=== PATIENT | female | born 1960 | race Caucasian/White ===

== ENCOUNTER 2017-09-26 17:01 | Inpatient (IN) | payer MEDICAID, SELFPAY ==
[2017-09-26] VITALS (18 sets, daily range): BP systolic 100–190; BP diastolic 57–175; PULSE 66–100; RESP 14–41; TEMP 34.6–37.1; O2SAT 97–100; BMI 18.1; BMI 17.4; BMI 17.5
--- NOTE | 2017-09-26 17:06 | NURSING ---
NO OLD EKGS
--- NOTE | 2017-09-26 17:10 | RAD_ITS ---
STUDY: X-RAY CHEST REASON FOR EXAM: Female, 57 years old. Cardiac arrest TECHNIQUE: AP portable COMPARISON: None. FINDINGS: Lungs are hyperinflated but clear.. There is no demonstrated pleural abnormality. Endotracheal tube is present terminating approximately 4 cm proximal to bryce Normal size heart. Normal mediastinum and luly. Normal visualized pulmonary arteries. Normal visualized aortic arch and descending thoracic aorta. Normal visualized thoracic spine. Normal visualized ribs, clavicles, and shoulders. Nasal gastric tube is present with tip in the gastric fundus There is no demonstrated abnormality of the visualized soft tissue structures of the upper abdomen. RAD/Chest 1 View (Portable) IMPRESSION: Mild hyperinflation. No acute disease status post intubation. Electronically Signed: Fredy Holland MD at 18:30 EST , Service support ,
--- NOTE | 2017-09-26 17:10 | EKG12_ITS ---
Test Reason : Blood Pressure : / mmHG Vent. Rate : 052 BPM Atrial Rate : 052 BPM P-R Int : 124 ms QRS Dur : 088 ms QT Int : 488 ms P-R-T Axes : 060 053 -66 degrees QTc Int : 453 ms Sinus bradycardia Otherwise normal ECG No previous ECGs available Confirmed by JODY COLINDRES ([id number]), editor trade journal WONG DAVIDSON ([id number] on 10/02/2017 1:57:28 PM Referred By: Jody Colindres Confirmed By:JODY COLINDRES
--- NOTE | 2017-09-26 17:13 | ED.RN ---
Addendum entered by Davide Dupont 09/26/17 17:39: 1731-PROPOFOL RATE INCREASED FROM 5MCG TO 10MCG/KG Original Note: 1700 - 7.0 E-TUBE SECURED, 22 AT LIPS. PLACEMENT [id number] WITH BILAT BREATH SOUNDS. 1708-PROPOFOL GTT STARTED 1714 - PROPOFOL 40MG IVP. 1715 - LAB DRAW, RAINBOW
--- NOTE | 2017-09-26 17:23 | RAD_ITS ---
STUDY: X-RAY - ABDOMEN/PELVIS REASON FOR EXAM: Female, 57 years old. G-tube placement TECHNIQUE: COMPARISON: None. FINDINGS: Normal visualized lung bases. There is an unremarkable bowel gas pattern. There is no demonstrated free abdominal air. OG tube placement is noted with tip in the mid gastric fundus. The visualized liver, spleen and kidneys are grossly normal in size and morphology. There is subdiaphragmatic lucency on the left likely artifactual. Normal visualized osseous structures. RAD/Abdomen Single View IMPRESSION: OG tube placement in the mid gastric fundus. Subdiaphragmatic lucency on the left most likely artifactual however if concern for pneumoperitoneum upright film recommended Electronically Signed: Fredy Holland MD at 19:13 EST , Service support ,
[2017-09-26 17:29] LABS: Absolute Neutrophil Count 6.5 X10^3/uL (2.0-7.7); Basophil# 0.01 X10^3/uL; Basophil% 0.1 % (0-1); Eosinophil# 0.11 X10^3/uL; Eosinophils% 0.9 % (0-5); Hematocrit 44.6 % (37-47); Hemoglobin 14.8 g/dl (12.0-15.0); Lymphocyte % 36.5 % (19-41); Mean Corp Hgb Conc 33.2 g/gl (32-36); Mean Corpuscular Hgb 32.2 pg (27.0-32.0); Mean Corpuscular Volume 97.2 fL (81-99); Mean Platelet Vol. 8.6 fl (6.2-12.0); Monocyte# 0.77 X10^3/uL; Monocyte% 6.5 % (0-10); Neutrophil # 6.52 X10^3/uL (2.7-7.7); Neutrophil % 55.5 % (47-70); Platelet Count 269 K/mm3 (150-450); RBC Distribution Width CV 14.5 % (11.6-14.6); RBC Distribution Width SD 51.7 fl (35.1-43.9); Red Blood Count 4.59 M/mm3 (4.2-5.4); White Blood Count 11.8 K/mm3 (4.4-11.0)
[2017-09-26] MEDS: Heparin Injection 5,000 UNITS/ML Syringe 4000 UNITS SC (17:29)
[2017-09-26] MEDS: Aspirin 81 MG TAB.CHEW 324 MG PO (17:29)
[2017-09-26] MEDS: TICAGRELOR 90 MG TABLET 180 MG PO (17:29)
[2017-09-26 17:32] LABS: POSITIVE COUNT NO; POSITIVE DIFFERENTIAL NO; POSITIVE MORPHOLOGY NO
[2017-09-26 17:53] LABS: Anion Gap 15 (5-15); BUN 9 mg/dL (7-18); BUN/Creat Ratio 9.4 RATIO (10-20); Calcium,Total 8.4 mg/dL (8.5-10.1); Chloride 104 mmol/L (98-107); Creatinine, Serum 0.96 mg/dL (0.55-1.02); EST Glomerular Filtration Rate 64 mL/min (>60); Est Glom Filt Rate - Afr Amer 77 mL/min (>60); Estimated Creatinine Clearance 47.36 ml/min; Glucose 189 mg/dL (74-106); Potassium 3.5 mmol/L (3.5-5.1); Sodium Level 139 mmol/L (136-145)
[2017-09-26 17:54] LABS: Pregnancy, Serum, hCG Quali. NEGATIVE Negative (0-9 Nonpreg)
--- NOTE | 2017-09-26 18:02 | ED.VISSUMM ---
- ER Visit Summary Date of Service: 09/26/17 Chief Complaint: Cardiac arrest History of Present Illness: The patient is a 57 F presenting to the emergency department for evaluation after a witnessed out of hospital cardiac arrest. Patient started complaining to her that she was having left-sided arm pain and neck pain. He witnessed her having a cardiac arrest, and started bystander CPR and contacted EMS. Upon EMS arrival, initial rhythm on the patient was found to be ventricular fibrillation. She was shocked one time with 200 J of electricity, had a brief moment of asystole, and then regained both a pulse and normal rhythm. She was intubated and brought immediately to the emergency department. Additional history unable to be obtained secondary to the patient's level of illness. Physical Examination: Patient is well-nourished well-developed intubated. ET tube is 24 at the lips with bilateral breath sounds. GCS is 5T. Head normocephalic atraumatic. Pinpoint pupils minimally reactive. Neck supple. Abdomen soft. No peripheral edema. Skin normal color. Test Results: EKG demonstrates evidence of lateral ST depressions, no evidence of ST elevation. Sinus rate of 82. Chest x-ray shows good placement of the ET tube and NG tube. CBC shows leukocytosis of 11, chemistry unremarkable, troponin 2.45. Emergency Department Course and Treatment: Patient presented secondary to an out of hospital arrest. On initial presentation immediately EKG was performed and does not show evidence of ST elevation. Regardless, the patient was a V. fib arrest and I believe that she should be treated by emergent catheterization. I discussed this with Dr. Colindres, who agreed to mobilize the catheterization lab. Patient was placed on propofol and hypothermia protocol was initiated. Patient was given aspirin, Brilinta, heparin, and was transferred emergently to the catheterization lab. Disposition: Trimmer Climber Impression: 1. V. fib arrest Critical care time 40 minutes This note was generated with [employer] dictation software. It may contain incorrect words, spelling, and punctuation that were not noted in review of the chart prior to signing ED Disposition - Plan for ED Patient: Chief Complaint: CPR
--- NOTE | 2017-09-26 18:39 | ECHOCS_ITS ---
Reason For Study: CAD Procedure This was a 2D Doppler, Color Flow transthoracic echocardiogram. Exam performed portable in ICU/CCU. Left Ventricle Normal size and thickness. The estimated ejection fraction is 65 %. Normal diastology for age. No regional wall motion abnormalities noted. Right Ventricle Normal size and thickness. Normal systolic function. Atria Normal left atrium. Normal right atrium. Normal atrial septum. Mitral Valve The mitral valve is structurally normal. No prolapse or stenosis seen. Tricuspid Valve Normal tricuspid valve. Unable to estimate RV systolic pressure/pulmonary artery pressure due to technically difficult study. Aortic Valve Normal aortic valve. Trisinus/trileaflet aortic valve. Pulmonic Valve Normal pulmonic valve. Great Vessels Normal aortic root. Normal arch. The inferior vena cava is dilated. No collapse of the inferior vena cava. Pericardium/Pleural No pericardial effusion. MMode/2D Measurements & Calculations LVIDd: 3.1 cm IVSd: 0.87 cm Ao root diam: 2.5 cm LVIDs: 2.4 cm LVPWd: 0.72 cm LA dimension: 3.6 cm RVDd: 2.2 cm FS: 22.9 % LAV(MOD-bp): 22.7 ml LA A4 area: 9.8 cm2 RA A4 area: 8.6 cm2 LAV(MOD-bp) Indexed: 15.7 ml/m2 LAV(MOD-sp2): 20.2 ml LAV(MOD-sp4): 22.3 ml Doppler Measurements & Calculations MV E max neeraj: 66.4 cm/sec Lat Peak E' Neeraj: 9.2 cm/sec Med Peak E' Neeraj: 7.9 cm/sec MV A max neeraj: 71.0 cm/sec E/E' lat: 7.2 E/E' med: 8.4 MV E/A: 0.94 Ao V2 max: 154.0 cm/sec LV V1 max: 105.7 cm/sec PA V2 max: 94.4 cm/sec Ao max P.5 mmHg LV V1 max P.5 mmHg Interpretation Summary The estimated ejection fraction is 65 %. Normal diastology for age. Unable to estimate RV systolic pressure/pulmonary artery pressure due to technically difficult study. There is no comparison study available. Ordering Physician: Carlos Colindres Referring Physician: Carlos Colindres Performed By: Razia Lawton RDCS
[2017-09-26 18:45] LABS: Base Excess -10 mmol/L (-2 to +2); Bicarbonate 18.2 mmol/L (22-26); Blood Gas Specimen Type ALINE; PO2 229 mmHG (75-100); SO2 100 % (95-99); Total Carbon Dioxide 20 mmol/L; pCO2 51.5 mmHg (35-45); pH 7.16 (7.35-7.45)
[2017-09-26 18:45] LABS: ACT Activated Clotting Time 202 sec (74-137)
[2017-09-26 18:45] LABS: ACT Activated Clotting Time 235 sec (74-137)
--- NOTE | 2017-09-26 18:54 | CL.I_ITS ---
Patient Name: INDIA GARCIA Study Date: 09/26/2017 Performing: Carlos Colindres MD Ht: 63 inches 160 cm : 1960 Wt: 101.5 lbs 46 kg Age: 57 Gender: female BSA: 1.45 PROCEDURE(S) PERFORMED [id number]/LV [id number] W OR WO PTCA, SINGLE CORONARY ARTERY CLINICAL PROFILE AND CO-MORBIDITIES INDICATIONS: Unstable Angina, Sudden cardiac , Sudden cardiac arrest Stress/Imaging Stress/Image Study Performed: No Angina Classification Anginal Classification w/in 2 Weeks: No symptoms CAD Presentations: Unstable angina. Non-STEMI. 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 Successful PTCA/TETE of the proximal RCA with a 3.0 x 20 Promus Synergy stent; 75%-->0%, post dilated with a 3.0 x 12 NC Balloon; no dissection. RECOMMENDATIONS Referred for immediate PCI ASA Indefinitely Highly recommend quitting all tobacco products Follow up with primary juvenile officer Risk factor modification ASA Indefinitley Plavix for at least 12 months Routine post interventional care Refer for Outpatient Cardiac Rehab Manual sheath removal per protocol Follow up with Dr. Colindres Stress test in 4 weeks to evaluate LCX and DIAG territory. Transduce art line until am; pulmonary consult. DESCRIPTION OF PROCEDURE The patient arrived to the procedure lab. The risks and benefits of the procedure as well as a full d escription of our services here and lack of surgical backup were fully explained to the patient and/o r their significant other prior to the catheterization. The Timeout was completed, verifying the daniele ect patient and procedure. The patient's procedural site was prepped and draped in the usual fashion. Local anesthetic was given subcutaneously to right groin region with Lidocaine 2%. Using a modified Seldinger technique, arterial access was obtained via the right femoral artery, a 6Fr sheath was inse rted.. Left Coronary Artery selective angiography was performed in multiple views using a 4 Fr. JL4 catheter. Right Coronary Artery selective angiography was then performed in multiple views using a 4 Fr. 3DRC catheter. Left Ventriculography was performed in HARDING projection using a 4 Fr. Pigtail cathet er. LV to AO pullback pressures were then recordedThe images were reviewed and options discussed. A d ecision was then made to proceed with an Intervention, IVUS or other adjunct procedure. HSI Guide catheter was inserted and engaged into the RCA. bmw Guide wire was advanced to the RCA. Ang iogram performed pre balloon dilatation. emerge 2.0x12 Balloon catheter was inserted. PTCA balloon in flated at 12 atms for 12 secs PTCA balloon inflated at 12 atms for 9 secs PTCA balloon inflated at 12 atms for 9 secs Angiogram performed post balloon dilatation. synergy 2.5x38 Drug Eluting stent was i nserted Angiogram performed post stent deployment. synergy 3.0x20 Drug Eluting stent was inserted kayleigh rge nc 3.0x12 Balloon catheter was inserted. PTCA balloon inflated at 9 atms for 10 secs PTCA balloon inflated at 10 atms for 9 secs PTCA balloon inflated at 12 atms for 8 secs PTCA balloon inflated at 12 atms for 7 secs PTCA balloon inflated at 12 atms for 5 secs Angiogram performed post balloon dilat ation.. . . CORONARY ANGIOGRAPHY DOMINANCE: Right Dominant LEFT HEART ASSESSMENT Left Ventricular Ejection Fraction: by LV Gram 60 % Inferior Basal Hypokinesis - Mild LEFT MAIN: Angiographically normal LEFT ANTERIOR DECENDING ARTERY: Mild luminal irregularities less than 30% DIAGONAL 1: Proximal - 50 % Stenosis CIRCUMFLEX ARTERY: MID CIRC: 50 % Stenosis RIGHT CORONARY ARTERY: PROX RCA: 75 % Stenosis MID RCA: 85 % Stenosis DISTAL RCA: Mild luminal irregularities less than 30% RT PDA: Proximal - No significant disease noted INTERVENTION INFORMATION LESION SITE: RCA (Mid) Lesion Complexity: High/C, lesion at bifurcation: Yes, thrombus present: No, culprit lesion: Yes Pre Stenosis: 85 % Pre intervention JOLENE flow: 3 PROCEDURE: Drug Eluting Stent with pre and post dilatation Post Stenosis: 0 % Post intervention JOLENE flow: 3 Lesion Devices: [employer] Sci EMERGE MR 2.00x12 BALLOON Zacarias [employer] MR TETE 2.50x38 Z[employer] Sci NC EMERGE MR 3.00x12 BALLOON LESION SITE: RCA (Proximal) Lesion Complexity: High/C, lesion at bifurcation: No, thrombus present: No, lesion length: 20 mm, cul prit lesion: No Pre Stenosis: 75 % Pre intervention JOLENE flow: 3 PROCEDURE: Drug Eluting Stent with pre and post dilatation Post Stenosis: 0 % Post intervention JOLENE flow: 3 Lesion Devices: [employer] EMERGE MR 2.00x12 BALLOON [employer] Sci Synergy MR TETE 3.00x20 [employer] NC EMERGE MR 3.00x12 BALLOON COMPLICATIONS No Complications PROCEDURE MEDICATIONS Fentanyl 25 mcg IV Oxygen: 50 % FiO2 via ventilator. See Resp Record for Settings Nitro 200 mcg IC 09/26/2017 18:06:08 Nitro 200 mcg IC 09/26/2017 18:06:08 IV Bolus: .9 NaCl 600 ml total 09/26/2017 18:00:34 SUMMARY OF HEMODYNAMIC DATA Time AIR REST ECG 17:53:17 AO 90/61 (75) SA 17:58:41 LV 145/-4, 23 18:27:13 LV 132/-7, 25 18:27:19 LVp 132/-6, 24 18:27:24 AOp 133/72 (98) 18:27:29 Signed By Carlos Colindres MD On 09/26/2017 18:54:11 Carlos Colindres MD
--- NOTE | 2017-09-26 18:59 | EKG12_ITS ---
Test Reason : FULL ARREST Blood Pressure : / mmHG Vent. Rate : 082 BPM Atrial Rate : 082 BPM P-R Int : 134 ms QRS Dur : 084 ms QT Int : 378 ms P-R-T Axes : 084 044 090 degrees QTc Int : 441 ms Normal sinus rhythm Nonspecific ST and T wave abnormality Abnormal ECG Confirmed by BERRY MASCORRO, DAWIT ([id number]), development editor WONG DAVIDSON ([id number]) on 09/28/2017 1:19:54 PM Referred By: Carlos Colindres Confirmed By:DAWIT SMART MD
[2017-09-26 19:26] LABS: Hematocrit 38.1 % (37-47); Hemoglobin 12.9 g/dl (12.0-15.0); Mean Corp Hgb Conc 33.9 g/gl (32-36); Mean Corpuscular Hgb 32.2 pg (27.0-32.0); Mean Platelet Vol. 8.6 fl (6.2-12.0); Platelet Count 257 K/mm3 (150-450); RBC Distribution Width CV 14.3 % (11.6-14.6); Red Blood Count 4.01 M/mm3 (4.2-5.4); White Blood Count 15.5 K/mm3 (4.4-11.0)
[2017-09-26 19:31] LABS: Allen Test POS; Base Excess -5 mmol/L (-2 to +2); Bicarbonate 21.9 mmol/L (22-26); Blood Gas Specimen Type ALINE; FI02 40; Mode A-C; O2 Delivery Device Vent; PEEP 5; PO2 219 mmHG (75-100); RR 14; SO2 100 % (95-99); Time Given 1925; Total Carbon Dioxide 23 mmol/L; Vt 400; pH 7.25 (7.35-7.45)
[2017-09-26 19:34] LABS: Scan Indicated on CBC? Y/N NO
[2017-09-26] MEDS: 0.9% Normal Saline 1,000 ML 150 ML IV (19:37)
[2017-09-26] MEDS: 0.9% NaCl Peripheral Flush Adult/Peds IV (19:37)
[2017-09-26 19:42] LABS: CPK Total, Creatine Kinase 475 U/L (26-192)
--- NOTE | 2017-09-26 20:00 | NURSING ---
Pt , Ameya, daughter, Sherie, and male visitor at bedside. tearful and expressing frustration regarding visitation. This RN and Mgiuel Copeland RN explaining to Ameya and Sherie visiting hours 9a-9p and rounds at 9a. Ameya in aggressive tone stating he will have pt transferred to another hospital, much emotional support provided. It is explained to Ameya that he may stay in waiting room and will not be kept from seeing his but it is not recommended he sleep in pt room. Ameya is given nurses station phone number and expresses he may be back later seeming to remain agitated.
[2017-09-26] MEDS: 0.9% NaCl IVPB Med Flush (250 mL) 15 ML IV (20:13)
--- NOTE | 2017-09-26 21:00 | NURSING ---
Pt's , Ameya, calling in to nurses station and speaking to Miguel Hudson. Ameya expressing much frustration that EMS had given pt Narcan, he demands that tox screen be obtained on pt. also discussing frustration regarding Authorization Specialist, stating they were trying to search my house. Ameya is transferred to discuss concerns with nurse farm equipment maintenance supervisor David Clements RN.
--- NOTE | 2017-09-26 21:10 | NURSING ---
Pharmacy is called, this RN spoke with Pharmacist Luis Eduardo requesting that all PO medications be changed to OG route per Dr. Penn.
--- NOTE | 2017-09-26 22:05 | PCM.HP.STD ---
Problem List (1) Cardiac arrest Status: Acute History of Present Illness Date of Admission: 09/26/17 Chief Complaint: Cardiac arrest The patient is a 57 year old F was seen in the emergency room at [facility] today after being brought in by squad when she suffered a cardiac arrest at home in the presence of her . Patient's stated that the patient was complaining of left-sided arm pain and neck pain, shortly after these complaints the patient stated that she needed to lie down and then became unresponsive abruptly, patient's stated that she was breathing and he called the ambulance but then he noted that she stopped breathing and he started CPR. She was evaluated by EMS upon arrival and her initial rhythm was found to be ventricular fibrillation and she was shocked one time with 200 J, according to the EMS, she had a brief period of asystole but then went into normal sinus rhythm. Patient was intubated and brought to the emergency room department. Review of systems was unable to be obtained from the patient due to her intubated state, EKG was performed in the emergency room which showed no evidence of ST elevation, cardiology was contacted and felt the patient warranted an emergent heart catheterization. Patient underwent emergent heart catheterization with angioplasty and insertion of 2 drug-eluting stents in the right coronary artery. Patient was noted to have mild circumflex, diagonal, and LAD disease which was nonobstructive. Labs obtained in the emergency room revealed a troponin of 2.45, WBC was 11,000, chemistry was unremarkable Patient was admitted to the ICU under the hospitalist service for V. fib arrest and non-STEMI, I evaluated her after admission to the ICU, patient was sedated and on the ventilator at the time, again review of systems was unobtainable. Patient will be seen by critical care medicine tomorrow and cardiology. Past Medical History Allergies Penicillins Allergy (Verified 09/26/17 17:22) Unknown Home Medications: Ambulatory Orders Medication Instructions Recorded NK [NK] 09/26/17 Surgical History: noncontributory Psychiatric History: No pertinent psych hx TOY DESIGNER History: No pertinent TOY DESIGNER history Lives: Spouse/ Significant Other Smoking Status: Current every day smoker Tobacco Use: Cigarettes - *Family History Maternal History Items: Unknown Paternal History Items: Unknown Review of Systems Comment: Systems was unobtainable due to the patient's medical status-she is sedated on the ventilator at this time VTE Information - Inpt Only VTE Present on Admission: No VTE Mechan Device Prophylaxis: SCD's VTE Pharm Prophylaxis ordered?: No Reason prophylaxis not ordered:: Treatment Not Indicated - on SCD's Patient Problems: Active and Suspected Problems Cardiac arrest (Acute) - Physical Exam General: No apparent distress, Well developed, - - She is sedated and on the ventilator HEENT: Atraumatic, PERRLA, Normocephalic Oral: Moist Mucosa Neck: Supple, No JVD, Negative Carotid Bruits, No Nuchal Rigidity, Trachea Midline, Thyroid Normal Size and Texture Lungs: Clear to auscultation, Normal air movement, No rhonchi, No wheeze, No rales Cardiovascular: Regular rate, Regular Rhythm, Normal S1, Normal S2, No murmurs, No Ectopic Activity, PMI Normal, No rub noted, No Gallop Abdomen: Bowel Sounds Present, Soft, Non Tender, Non-Distended, No hernias noted Extremities: No clubbing, No cyanosis, No edema, Capillary Refill Less than 3 Seconds Skin: No rashes, No breakdown Musculoskeletal: No Tenderness to Palpation of Joints or Extremities, Cachexia Neurological: - - She is sedated and on the ventilator Psych/Mental Status: - - She is sedated and on the ventilator Vital Signs Temp Pulse Resp BP Pulse Ox 97.4 F L 71 17 102/58 L 100 09/26/17 20:30 09/26/17 20:30 09/26/17 20:30 09/26/17 20:30 09/26/17 20:30 Oxygen Delivery Method Mechanical Ventilator Weight: 44.7 kg Body Mass Index (BMI) 17.4 Laboratory Tests Past 24 Hrs 09/26/17 09/26/17 09/26/17 18:00 18:07 18:27 WBC RBC Hgb Hct MCV MCH MCHC RDW RDW Differential Plt Count MPV Activated Clotting Time 235 H 202 H Specimen Type RIYA pH 7.16 L* Bicarbonate Actual 18.2 L POC Total CO2 20 Base Excess -10 L O2 Saturation 100 H O2 % ABG pCO2 51.5 H ABG pO2 229 H Romero Test Respiration Rate O2 Delivery Device Minute Volume Vent Mode Tidal Volume POC PEEP Blood Gas Notified Whom Blood Gas Notified Time Total Creatine Kinase Troponin I MRSA (PCR) 09/26/17 09/26/17 09/26/17 19:05 19:05 19:05 WBC 15.5 H RBC 4.01 L Hgb 12.9 Hct 38.1 MCV 95.0 MCH 32.2 H MCHC 33.9 RDW 14.3 RDW Differential 50.0 H Plt Count 257 MPV 8.6 Activated Clotting Time Specimen Type pH Bicarbonate Actual POC Total CO2 Base Excess O2 Saturation O2 % ABG pCO2 ABG pO2 Romero Test Respiration Rate O2 Delivery Device Minute Volume Vent Mode Tidal Volume POC PEEP Blood Gas Notified Whom Blood Gas Notified Time Total Creatine Kinase 475 H Troponin I MRSA (PCR) Pending 09/26/17 09/26/17 19:26 21:15 WBC RBC Hgb Hct MCV MCH MCHC RDW RDW Differential Plt Count MPV Activated Clotting Time Specimen Type RIYA pH 7.25 L Bicarbonate Actual 21.9 L POC Total CO2 23 Base Excess -5 L O2 Saturation 100 H O2 % 40 ABG pCO2 50.0 H ABG pO2 219 H Romero Test POS Respiration Rate 14 O2 Delivery Device Vent Minute Volume 14.00 Vent Mode A-C Tidal Volume 400 POC PEEP 5 Blood Gas Notified Whom [facility] MD Blood Gas Notified Time 1925 Total Creatine Kinase Troponin I Pending MRSA (PCR) Assessment/Plan Active and Suspected Problems Cardiac arrest (Acute) #1 V. fib arrest-again patient was admitted to ICU, she will be monitored closely and additional orders were placed by cardiology, critical care will participate in her care #2 [id number] per cardiology #3 hypoxic respiratory arrest secondary to V. fib-critical care will participate in her care #4 nonobstructive coronary disease in addition to obstructive coronary artery disease and right coronary artery-aspirin, Brilinta, Lipitor, beta-alan, ANA inhibitor Code Visit Inpatient E&M: 67315 Init Hosp L3
--- NOTE | 2017-09-26 22:15 | HP.PCM_ITS ---
Problem List (1) Cardiac arrest Status: Acute History of Present Illness Date of Admission: 09/26/17 Chief Complaint: Cardiac arrest The patient is a 57 year old F was seen in the emergency room at [facility] today after being brought in by squad when she suffered a cardiac arrest at home in the presence of her . Patient's stated that the patient was complaining of left-sided arm pain and neck pain, shortly after these complaints the patient stated that she needed to lie down and then became unresponsive abruptly, patient's stated that she was breathing and he called the ambulance but then he noted that she stopped breathing and he started CPR. She was evaluated by EMS upon arrival and her initial rhythm was found to be ventricular fibrillation and she was shocked one time with 200 J, according to the EMS, she had a brief period of asystole but then went into normal sinus rhythm. Patient was intubated and brought to the emergency room department. Review of systems was unable to be obtained from the patient due to her intubated state, EKG was performed in the emergency room which showed no evidence of ST elevation, cardiology was contacted and felt the patient warranted an emergent heart catheterization. Patient underwent emergent heart catheterization with angioplasty and insertion of 2 drug-eluting stents in the right coronary artery. Patient was noted to have mild circumflex , diagonal, and LAD disease which was nonobstructive. Labs obtained in the emergency room revealed a troponin of 2.45, WBC was 11,000 , chemistry was unremarkable Patient was admitted to the ICU under the hospitalist service for V. fib arrest and non-STEMI, I evaluated her after admission to the ICU, patient was sedated and on the ventilator at the time, again review of systems was unobtainable. Patient will be seen by critical care medicine tomorrow and cardiology. Past Medical History Allergies Penicillins Allergy (Verified 09/26/17 17:22) Unknown Home Medications: Ambulatory Orders Medication Instructions Recorded NK [NK] 09/26/17 Surgical History: noncontributory Psychiatric History: No pertinent psych hx SEAMAN History: No pertinent SEAMAN history Lives: Spouse/ Significant Other Smoking Status: Current every day smoker Tobacco Use: Cigarettes - *Family History Maternal History Items: Unknown Paternal History Items: Unknown Review of Systems Comment: Systems was unobtainable due to the patient's medical status-she is sedated on the ventilator at this time VTE Information - Inpt Only VTE Present on Admission: No VTE Mechan Device Prophylaxis: SCD's VTE Pharm Prophylaxis ordered?: No Reason prophylaxis not ordered:: Treatment Not Indicated - on SCD's Patient Problems: Active and Suspected Problems Cardiac arrest (Acute) - Physical Exam General: No apparent distress, Well developed, - - She is sedated and on the ventilator HEENT: Atraumatic, PERRLA, Normocephalic Oral: Moist Mucosa Neck: Supple, No JVD, Negative Carotid Bruits, No Nuchal Rigidity, Trachea Midline, Thyroid Normal Size and Texture Lungs: Clear to auscultation, Normal air movement, No rhonchi, No wheeze, No rales Cardiovascular: Regular rate, Regular Rhythm, Normal S1, Normal S2, No murmurs, No Ectopic Activity, PMI Normal, No rub noted, No Gallop Abdomen: Bowel Sounds Present, Soft, Non Tender, Non-Distended, No hernias noted Extremities: No clubbing, No cyanosis, No edema, Capillary Refill Less than 3 Seconds Skin: No rashes, No breakdown Musculoskeletal: No Tenderness to Palpation of Joints or Extremities, Cachexia Neurological: - - She is sedated and on the ventilator Psych/Mental Status: - - She is sedated and on the ventilator Vital Signs Temp Pulse Resp BP Pulse Ox 97.4 F L 71 17 102/58 L 100 09/26/17 20:30 09/26/17 20:30 09/26/17 20:30 09/26/17 20:30 09/26/17 20:30 Oxygen Delivery Method Mechanical Ventilator Weight: 44.7 kg Body Mass Index (BMI) 17.4 Laboratory Tests Past 24 Hrs 09/26/17 09/26/17 09/26/17 18:00 18:07 18:27 WBC RBC Hgb Hct MCV MCH MCHC RDW RDW Differential Plt Count MPV Activated Clotting Time 235 H 202 H Specimen Type RIYA pH 7.16 L* Bicarbonate Actual 18.2 L POC Total CO2 20 Base Excess -10 L O2 Saturation 100 H O2 % ABG pCO2 51.5 H ABG pO2 229 H Romero Test Respiration Rate O2 Delivery Device Minute Volume Vent Mode Tidal Volume POC PEEP Blood Gas Notified Whom Blood Gas Notified Time Total Creatine Kinase Troponin I MRSA (PCR) 09/26/17 09/26/17 09/26/17 19:05 19:05 19:05 WBC 15.5 H RBC 4.01 L Hgb 12.9 Hct 38.1 MCV 95.0 MCH 32.2 H MCHC 33.9 RDW 14.3 RDW Differential 50.0 H Plt Count 257 MPV 8.6 Activated Clotting Time Specimen Type pH Bicarbonate Actual POC Total CO2 Base Excess O2 Saturation O2 % ABG pCO2 ABG pO2 Romero Test Respiration Rate O2 Delivery Device Minute Volume Vent Mode Tidal Volume POC PEEP Blood Gas Notified Whom Blood Gas Notified Time Total Creatine Kinase 475 H Troponin I MRSA (PCR) Pending 09/26/17 09/26/17 19:26 21:15 WBC RBC Hgb Hct MCV MCH MCHC RDW RDW Differential Plt Count MPV Activated Clotting Time Specimen Type RIYA pH 7.25 L Bicarbonate Actual 21.9 L POC Total CO2 23 Base Excess -5 L O2 Saturation 100 H O2 % 40 ABG pCO2 50.0 H ABG pO2 219 H Romero Test POS Respiration Rate 14 O2 Delivery Device Vent Minute Volume 14.00 Vent Mode A-C Tidal Volume 400 POC PEEP 5 Blood Gas Notified Whom [facility] MD Blood Gas Notified Time 1925 Total Creatine Kinase Troponin I Pending MRSA (PCR) Assessment/Plan Active and Suspected Problems Cardiac arrest (Acute) #1 V. fib arrest-again patient was admitted to ICU, she will be monitored closely and additional orders were placed by cardiology, critical care will participate in her care #2 [id number] per cardiology #3 hypoxic respiratory arrest secondary to V. fib-critical care will participate in her care #4 nonobstructive coronary disease in addition to obstructive coronary artery disease and right coronary artery-aspirin, Brilinta, Lipitor, beta-alan, ANA inhibitor Code Visit Inpatient E&M: 25853 Init Hosp L3
[2017-09-26 22:25] LABS: M R Staph aureus DNA By PCR Negative (Negative); Probe Check PASS; Specimen Processing Control PASS
--- NOTE | 2017-09-26 22:57 | NURSING ---
This RN speaking with pharmacist Luis Eduardo and requesting again that PO medications be changed to OG route. Awaiting route change to administer medications.
[2017-09-26] MEDS: Metoprolol Tartrate 25 MG Tablet 12.5 MG GT (23:20)
[2017-09-26] MEDS: Atorvastatin Calcium 80 MG Tablet GT (23:21)
[2017-09-26 23:55] LABS: Bedside Glucose 124 mg/dL (70-110)
[2017-09-27] VITALS (64 sets, daily range): BP systolic 75–115; BP diastolic 52–80; PULSE 45–107; RESP 14–26; TEMP 36–37.8; O2SAT 94–100; BMI 18.0
--- NOTE | 2017-09-27 | NURSING ---
Small amount of red blood observed on 4x4 gauze drsg. Will continue to monitor.
[2017-09-27 01:06] LABS: Hematocrit 34.7 % (37-47); Hemoglobin 11.6 g/dl (12.0-15.0); Mean Corp Hgb Conc 33.4 g/gl (32-36); Mean Corpuscular Hgb 31.5 pg (27.0-32.0); Mean Corpuscular Volume 94.3 fL (81-99); Mean Platelet Vol. 8.1 fl (6.2-12.0); Platelet Count 195 K/mm3 (150-450); RBC Distribution Width CV 14.3 % (11.6-14.6); RBC Distribution Width SD 49.1 fl (35.1-43.9); Red Blood Count 3.68 M/mm3 (4.2-5.4); White Blood Count 11.4 K/mm3 (4.4-11.0)
[2017-09-27 01:07] LABS: Scan Indicated on CBC? Y/N NO
[2017-09-27 01:20] LABS: CPK Total, Creatine Kinase 871 U/L (26-192)
--- NOTE | 2017-09-27 03:40 | NURSING ---
Pt attempting to sit up, reaching for ETT and pulling on B/L wrist restraints. Pt kicking legs and bending right leg. Right groin sheath site begins to bleed scant amount of bright red blood. Drsg comes off and new drsg applied. No S&S of complications, site remains soft and distal pulses present.
[2017-09-27 05:06] LABS: Hematocrit 35.6 % (37-47); Hemoglobin 12.2 g/dl (12.0-15.0); Mean Corp Hgb Conc 34.3 g/gl (32-36); Mean Corpuscular Hgb 32.5 pg (27.0-32.0); Mean Corpuscular Volume 94.9 fL (81-99); Mean Platelet Vol. 8.2 fl (6.2-12.0); Platelet Count 241 K/mm3 (150-450); RBC Distribution Width CV 14.4 % (11.6-14.6); RBC Distribution Width SD 47.8 fl (35.1-43.9); Red Blood Count 3.75 M/mm3 (4.2-5.4)
[2017-09-27 05:11] LABS: Scan Indicated on CBC? Y/N NO
[2017-09-27 05:22] LABS: Anion Gap 9 (5-15); BUN 6 mg/dL (7-18); BUN/Creat Ratio 9.8 RATIO (10-20); Calcium,Total 7.4 mg/dL (8.5-10.1); Chloride 109 mmol/L (98-107); Cholesterol 116 mg/dL (200); Creatinine, Serum 0.61 mg/dL (0.55-1.02); EST Glomerular Filtration Rate 107 mL/min (>60); Est Glom Filt Rate - Afr Amer 129 mL/min (>60); Glucose 86 mg/dL (74-106); High Density Lipoprotein 50 mg/dL; Potassium 4.4 mmol/L (3.5-5.1); Sodium Level 141 mmol/L (136-145); Triglycerides 158 mg/dL; Very Low Density Lipoprotein 32 mg/dL (5-40)
--- NOTE | 2017-09-27 05:55 | EKG12_ITS ---
Test Reason : POST CATH Blood Pressure : / mmHG Vent. Rate : 077 BPM Atrial Rate : 077 BPM P-R Int : 154 ms QRS Dur : 088 ms QT Int : 370 ms P-R-T Axes : 083 039 076 degrees QTc Int : 418 ms Normal sinus rhythm Nonspecific ST and T wave abnormality Abnormal ECG Confirmed by BERRY MASCORRO, DAWIT ([id number]), deputy editor in chief WONG DAVIDSON ([id number]) on 09/28/2017 1:44:15 PM Referred By: Carlos Colindres Confirmed By:DAWIT SMART MD
--- NOTE | 2017-09-27 07:49 | CPS ---
patient failed in less than 5 minutes, went apnic and ventilator kicked in. repeated spells of apnea immediately. switched back over to full support.
--- NOTE | 2017-09-27 07:58 | PCM.CON.CC ---
Problem List (1) Cardiac arrest Status: Acute Reason for Consult Date of Consultation: 09/27/17 Reason for Consultation: Respiratory failure History of Present Illness: The patient is a 57 year old F, with little known past history, who presented to [facility] on 09/26/2017 after being found by the squad unresponsive. Patient reportedly started to complain of left-sided arm and neck pain and then became unresponsive. Patient initially had agonal breathing, but then was noted to be completely unresponsive. CPR was initiated by patient's . On arrival, EMS did give Narcan, but upon hooking up the leads patient was noted to be in ventricular fibrillation. Patient did receive a 200 J shock with return to perfusing rhythm. Patient was intubated, given Versed and then transported to the emergency department. On arrival to the emergency department, patient was noted to have a slightly abnormal EKG. Cardiology was consulted and it was determined the patient would benefit from emergent heart catheterization. On heart catheterization, patient was noted to have 2 significant defects of the right coronary artery leading to 2 drug-eluting stents. Patient was then transported to the intensive care unit for further monitoring. Patient has not required any pressors. Patient has been difficult to sedate and facilitate ventilation. No further history is available at this time. 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 No acute infiltrates are appreciated, but patient does have hyperinflation. - Physical Exam General: - - Intubated and sedated. Thin build. Good vent synchrony noted, but breathing with the vent. HEENT: Atraumatic, PERRLA, EOMI, Normocephalic, - - No scleral icterus or injection noted. Oral: Moist Mucosa, No Gingival or Mucosal Lesions/ Ulcerations Neck: Supple, No JVD, No Nodes, Trachea Midline Lungs: No rhonchi, No wheeze, No rales, Diminished, - - Symmetric expansion. No dullness to percussion. Increased AP diameter noted. Cardiovascular: Regular rate, Regular Rhythm, Normal S1, Normal S2, No murmurs, No rub noted, No Gallop Abdomen: Bowel Sounds Present, Soft, Non Tender, Non-Distended Extremities: No clubbing, No cyanosis, No edema, Capillary Refill Less than 3 Seconds, - - Arterial access in place. Skin: No rashes, No breakdown Musculoskeletal: No Tenderness to Palpation of Joints or Extremities Lymphatic: No Cervical, Supraclavicular, or Inguinal Adenopathy Neurological: - - Intubated and sedated. Not following commands. Spontaneous movements noted of all extremities. Sensation appears to be intact. Psych/Mental Status: Flat Affect Vital Signs Temp Pulse Resp BP Pulse Ox 37.7 C H 107 H 24 H 107/56 L 97 09/27/17 06:00 09/27/17 07:05 09/27/17 07:05 09/27/17 06:00 09/27/17 07:05 Oxygen Delivery Method Mechanical Ventilator Weight: 45.3 kg Body Mass Index (BMI) 17.4 Intake and Output for Last 24 Hours 09/25/17 09/26/17 09/27/17 23:59 23:59 23:59 Intake Total 989 / 989 808 / 808 Output Total 1000 / 1000 590 / 590 Balance -11 / -11 218 / 218 Laboratory Tests Past 24 Hrs 09/26/17 09/26/17 09/26/17 18:00 18:07 18:27 WBC RBC Hgb Hct MCV MCH MCHC RDW RDW Differential Plt Count MPV Activated Clotting Time 235 H 202 H Specimen Type RIYA pH 7.16 L* Bicarbonate Actual 18.2 L POC Total CO2 20 Base Excess -10 L O2 Saturation 100 H O2 % ABG pCO2 51.5 H ABG pO2 229 H Romero Test Respiration Rate O2 Delivery Device Minute Volume Vent Mode Tidal Volume POC PEEP Blood Gas Notified Whom Blood Gas Notified Time Sodium Potassium Chloride Carbon Dioxide Anion Gap BUN Creatinine Estim Creat Clear Calc Est GFR (MDRD) Af Amer Est GFR (MDRD) Non-Af BUN/Creatinine Ratio Glucose Calcium Total Creatine Kinase Troponin I Triglycerides Cholesterol LDL Cholesterol VLDL Cholesterol HDL Cholesterol MRSA (PCR) 0209/26/17 09/26/17 19:05 19:05 19:05 WBC 15.5 H RBC 4.01 L Hgb 12.9 Hct 38.1 MCV 95.0 MCH 32.2 H MCHC 33.9 RDW 14.3 RDW Differential 50.0 H Plt Count 257 MPV 8.6 Activated Clotting Time Specimen Type pH Bicarbonate Actual POC Total CO2 Base Excess O2 Saturation O2 % ABG pCO2 ABG pO2 Romero Test Respiration Rate O2 Delivery Device Minute Volume Vent Mode Tidal Volume POC PEEP Blood Gas Notified Whom Blood Gas Notified Time Sodium Potassium Chloride Carbon Dioxide Anion Gap BUN Creatinine Estim Creat Clear Calc Est GFR (MDRD) Af Amer Est GFR (MDRD) Non-Af BUN/Creatinine Ratio Glucose Calcium Total Creatine Kinase 475 H Troponin I Triglycerides Cholesterol LDL Cholesterol VLDL Cholesterol HDL Cholesterol MRSA (PCR) Negative 09/26/17 09/26/17 09/27/17 19:26 21:15 00:50 WBC RBC Hgb Hct MCV MCH MCHC RDW RDW Differential Plt Count MPV Activated Clotting Time Specimen Type RIYA pH 7.25 L Bicarbonate Actual 21.9 L POC Total CO2 23 Base Excess -5 L O2 Saturation 100 H O2 % 40 ABG pCO2 50.0 H ABG pO2 219 H Romero Test POS Respiration Rate 14 O2 Delivery Device Vent Minute Volume 14.00 Vent Mode A-C Tidal Volume 400 POC PEEP 5 Blood Gas Notified Whom [facility] Blood Gas Notified Time 1925 Sodium Potassium Chloride Carbon Dioxide Anion Gap BUN Creatinine Estim Creat Clear Calc Est GFR (MDRD) Af Amer Est GFR (MDRD) Non-Af BUN/Creatinine Ratio Glucose Calcium Total Creatine Kinase 871 H Troponin I 22.70 H* Triglycerides Cholesterol LDL Cholesterol VLDL Cholesterol HDL Cholesterol MRSA (PCR) 09/27/17 09/27/17 09/27/17 00:50 00:50 04:55 WBC 11.4 H RBC 3.68 L Hgb 11.6 L Hct 34.7 L MCV 94.3 MCH 31.5 MCHC 33.4 RDW 14.3 RDW Differential 49.1 H Plt Count 195 MPV 8.1 Activated Clotting Time Specimen Type pH Bicarbonate Actual POC Total CO2 Base Excess O2 Saturation O2 % ABG pCO2 ABG pO2 Romero Test Respiration Rate O2 Delivery Device Minute Volume Vent Mode Tidal Volume POC PEEP Blood Gas Notified Whom Blood Gas Notified Time Sodium 141 Potassium 4.4 Chloride 109 H Carbon Dioxide 23.0 Anion Gap 9 BUN 6 L Creatinine 0.61 Estim Creat Clear Calc 71.80 Est GFR (MDRD) Af Amer 129 Est GFR (MDRD) Non-Af 107 BUN/Creatinine Ratio 9.8 L Glucose 86 Calcium 7.4 L Total Creatine Kinase Troponin I 25.60 H* Triglycerides 158 Cholesterol 116 LDL Cholesterol 34 VLDL Cholesterol 32 HDL Cholesterol 50 MRSA (PCR) 09/27/17 09/27/17 09/27/17 04:55 07:35 07:35 WBC 13.0 H RBC 3.75 L Hgb 12.2 Hct 35.6 L MCV 94.9 MCH 32.5 H MCHC 34.3 RDW 14.4 RDW Differential 47.8 H Plt Count 241 MPV 8.2 Activated Clotting Time Specimen Type pH Bicarbonate Actual POC Total CO2 Base Excess O2 Saturation O2 % ABG pCO2 ABG pO2 Romero Test Respiration Rate O2 Delivery Device Minute Volume Vent Mode Tidal Volume POC PEEP Blood Gas Notified Whom Blood Gas Notified Time Sodium Potassium Chloride Carbon Dioxide Anion Gap BUN Creatinine Estim Creat Clear Calc Est GFR (MDRD) Af Amer Est GFR (MDRD) Non-Af BUN/Creatinine Ratio Glucose Calcium Total Creatine Kinase Pending Troponin I Pending Triglycerides Cholesterol LDL Cholesterol VLDL Cholesterol HDL Cholesterol MRSA (PCR) POC Glucose 09/26/17 23:33 POC Glucose 124 H Clinical Impression(s) from Imaging Studies Chest X-Ray 09/26/17 17:10 IMPRESSION: Mild hyperinflation. No acute disease status post intubation. Electronically Signed: Fredy Holland MD at 18:30 EST , Service support , KUB X-Ray 09/26/17 17:23 IMPRESSION: OG tube placement in the mid gastric fundus. Subdiaphragmatic lucency on the left most likely artifactual however if concern for pneumoperitoneum upright film recommended Electronically Signed: Fredy Holland MD at 19:13 EST , Service support , Assessment/Plan Active and Suspected Problems Cardiac arrest (Acute) RECOMMENDATIONS: 1. Attempt spontaneous breathing trial 2. Possible transition to Precedex therapy 3. Arterial sheath removal per cardiology 4. Await echocardiogram 5. Culture and initiate antibiotics if temp greater than 37.9?C IMPRESSIONS: 1. V. fib arrest secondary to probable non-ST elevation MT Patient with chest pain and V. fib arrest while at home. Intubated emergently, so history is somewhat limited. Patient taken to the [employer] [facility] and found with significant blockages that have been intervened upon. Patient has been relatively hemodynamically stable since that point. Cardiology is currently following. Patient is on appropriate medications. Significant troponin noted. Repeat troponin is currently pending to evaluate for peak. 2. Acute combined respiratory failure secondary to V. fib arrest Patient does not have any acute infiltrates to suggest aspiration. No emesis has been reported by EMS. Patient does have a smoking history and chest x-ray is suggestive of hyperinflation. There are no significant wheezing on exam. Will attempt a spontaneous breathing trial. If patient is unable to tolerate spontaneous awakening trial, patient may need to be transition to Precedex therapy. Will repeat ABG at some point this morning to ensure respiratory failure has resolved. 3. Probable COPD/reduced BMI/poor background information Complicates care, management, recovery and prognosis. If patient is unable to be extubated today, initiation of tube feeds may be necessary. Will not start patient on steroid therapy at this time given lack of wheezing on exam. However, bronchodilators may be indicated empirically. TIME: 45 minutes critical care time spent addressing patient's V. fib arrest, acute combined respiratory failure, review of all data and collaboration with care team. (5:30 AM to 6:30 AM) Code Visit 9xxxx: [id number] Critical care first hour
--- NOTE | 2017-09-27 08:13 | CON.PCM_ITS ---
Problem List (1) Cardiac arrest Status: Acute Reason for Consult Date of Consultation: 09/27/17 Reason for Consultation: Respiratory failure History of Present Illness: The patient is a 57 year old F, with little known past history, who presented to [facility] on 09/26/2017 after being found by the squad unresponsive. Patient reportedly started to complain of left-sided arm and neck pain and then became unresponsive. Patient initially had agonal breathing , but then was noted to be completely unresponsive. CPR was initiated by patient's . On arrival, EMS did give Narcan, but upon hooking up the leads patient was noted to be in ventricular fibrillation. Patient did receive a 200 J shock with return to perfusing rhythm. Patient was intubated, given Versed and then transported to the emergency department. On arrival to the emergency department, patient was noted to have a slightly abnormal EKG. Cardiology was consulted and it was determined the patient would benefit from emergent heart catheterization. On heart catheterization, patient was noted to have 2 significant defects of the right coronary artery leading to 2 drug-eluting stents. Patient was then transported to the intensive care unit for further monitoring. Patient has not required any pressors. Patient has been difficult to sedate and facilitate ventilation. No further history is available at this time. 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 No acute infiltrates are appreciated, but patient does have hyperinflation. - Physical Exam General: - - Intubated and sedated. Thin build. Good vent synchrony noted, but breathing with the vent. HEENT: Atraumatic, PERRLA, EOMI, Normocephalic, - - No scleral icterus or injection noted. Oral: Moist Mucosa, No Gingival or Mucosal Lesions/ Ulcerations Neck: Supple, No JVD, No Nodes, Trachea Midline Lungs: No rhonchi, No wheeze, No rales, Diminished, - - Symmetric expansion. No dullness to percussion. Increased AP diameter noted. Cardiovascular: Regular rate, Regular Rhythm, Normal S1, Normal S2, No murmurs, No rub noted, No Gallop Abdomen: Bowel Sounds Present, Soft, Non Tender, Non-Distended Extremities: No clubbing, No cyanosis, No edema, Capillary Refill Less than 3 Seconds, - - Arterial access in place. Skin: No rashes, No breakdown Musculoskeletal: No Tenderness to Palpation of Joints or Extremities Lymphatic: No Cervical, Supraclavicular, or Inguinal Adenopathy Neurological: - - Intubated and sedated. Not following commands. Spontaneous movements noted of all extremities. Sensation appears to be intact. Psych/Mental Status: Flat Affect Vital Signs Temp Pulse Resp BP Pulse Ox 37.7 C H 107 H 24 H 107/56 L 97 09/27/17 06:00 09/27/17 07:05 09/27/17 07:05 09/27/17 06:00 09/27/17 07:05 Oxygen Delivery Method Mechanical Ventilator Weight: 45.3 kg Body Mass Index (BMI) 17.4 Intake and Output for Last 24 Hours 09/25/17 09/26/17 09/27/17 23:59 23:59 23:59 Intake Total 989 / 989 808 / 808 Output Total 1000 / 1000 590 / 590 Balance -11 / -11 218 / 218 Laboratory Tests Past 24 Hrs 09/26/17 09/26/17 09/26/17 18:00 18:07 18:27 WBC RBC Hgb Hct MCV MCH MCHC RDW RDW Differential Plt Count MPV Activated Clotting Time 235 H 202 H Specimen Type RIYA pH 7.16 L* Bicarbonate Actual 18.2 L POC Total CO2 20 Base Excess -10 L O2 Saturation 100 H O2 % ABG pCO2 51.5 H ABG pO2 229 H Romero Test Respiration Rate O2 Delivery Device Minute Volume Vent Mode Tidal Volume POC PEEP Blood Gas Notified Whom Blood Gas Notified Time Sodium Potassium Chloride Carbon Dioxide Anion Gap BUN Creatinine Estim Creat Clear Calc Est GFR (MDRD) Af Amer Est GFR (MDRD) Non-Af BUN/Creatinine Ratio Glucose Calcium Total Creatine Kinase Troponin I Triglycerides Cholesterol LDL Cholesterol VLDL Cholesterol HDL Cholesterol MRSA (PCR) 0209/26/17 09/26/17 19:05 19:05 19:05 WBC 15.5 H RBC 4.01 L Hgb 12.9 Hct 38.1 MCV 95.0 MCH 32.2 H MCHC 33.9 RDW 14.3 RDW Differential 50.0 H Plt Count 257 MPV 8.6 Activated Clotting Time Specimen Type pH Bicarbonate Actual POC Total CO2 Base Excess O2 Saturation O2 % ABG pCO2 ABG pO2 Romero Test Respiration Rate O2 Delivery Device Minute Volume Vent Mode Tidal Volume POC PEEP Blood Gas Notified Whom Blood Gas Notified Time Sodium Potassium Chloride Carbon Dioxide Anion Gap BUN Creatinine Estim Creat Clear Calc Est GFR (MDRD) Af Amer Est GFR (MDRD) Non-Af BUN/Creatinine Ratio Glucose Calcium Total Creatine Kinase 475 H Troponin I Triglycerides Cholesterol LDL Cholesterol VLDL Cholesterol HDL Cholesterol MRSA (PCR) Negative 09/26/17 09/26/17 09/27/17 19:26 21:15 00:50 WBC RBC Hgb Hct MCV MCH MCHC RDW RDW Differential Plt Count MPV Activated Clotting Time Specimen Type RIYA pH 7.25 L Bicarbonate Actual 21.9 L POC Total CO2 23 Base Excess -5 L O2 Saturation 100 H O2 % 40 ABG pCO2 50.0 H ABG pO2 219 H Romero Test POS Respiration Rate 14 O2 Delivery Device Vent Minute Volume 14.00 Vent Mode A-C Tidal Volume 400 POC PEEP 5 Blood Gas Notified Whom [facility] Blood Gas Notified Time 1925 Sodium Potassium Chloride Carbon Dioxide Anion Gap BUN Creatinine Estim Creat Clear Calc Est GFR (MDRD) Af Amer Est GFR (MDRD) Non-Af BUN/Creatinine Ratio Glucose Calcium Total Creatine Kinase 871 H Troponin I 22.70 H* Triglycerides Cholesterol LDL Cholesterol VLDL Cholesterol HDL Cholesterol MRSA (PCR) 09/27/17 09/27/17 09/27/17 00:50 00:50 04:55 WBC 11.4 H RBC 3.68 L Hgb 11.6 L Hct 34.7 L MCV 94.3 MCH 31.5 MCHC 33.4 RDW 14.3 RDW Differential 49.1 H Plt Count 195 MPV 8.1 Activated Clotting Time Specimen Type pH Bicarbonate Actual POC Total CO2 Base Excess O2 Saturation O2 % ABG pCO2 ABG pO2 Romero Test Respiration Rate O2 Delivery Device Minute Volume Vent Mode Tidal Volume POC PEEP Blood Gas Notified Whom Blood Gas Notified Time Sodium 141 Potassium 4.4 Chloride 109 H Carbon Dioxide 23.0 Anion Gap 9 BUN 6 L Creatinine 0.61 Estim Creat Clear Calc 71.80 Est GFR (MDRD) Af Amer 129 Est GFR (MDRD) Non-Af 107 BUN/Creatinine Ratio 9.8 L Glucose 86 Calcium 7.4 L Total Creatine Kinase Troponin I 25.60 H* Triglycerides 158 Cholesterol 116 LDL Cholesterol 34 VLDL Cholesterol 32 HDL Cholesterol 50 MRSA (PCR) 09/27/17 09/27/17 09/27/17 04:55 07:35 07:35 WBC 13.0 H RBC 3.75 L Hgb 12.2 Hct 35.6 L MCV 94.9 MCH 32.5 H MCHC 34.3 RDW 14.4 RDW Differential 47.8 H Plt Count 241 MPV 8.2 Activated Clotting Time Specimen Type pH Bicarbonate Actual POC Total CO2 Base Excess O2 Saturation O2 % ABG pCO2 ABG pO2 Romero Test Respiration Rate O2 Delivery Device Minute Volume Vent Mode Tidal Volume POC PEEP Blood Gas Notified Whom Blood Gas Notified Time Sodium Potassium Chloride Carbon Dioxide Anion Gap BUN Creatinine Estim Creat Clear Calc Est GFR (MDRD) Af Amer Est GFR (MDRD) Non-Af BUN/Creatinine Ratio Glucose Calcium Total Creatine Kinase Pending Troponin I Pending Triglycerides Cholesterol LDL Cholesterol VLDL Cholesterol HDL Cholesterol MRSA (PCR) POC Glucose 09/26/17 23:33 POC Glucose 124 H Clinical Impression(s) from Imaging Studies Chest X-Ray 09/26/17 17:10 IMPRESSION: Mild hyperinflation. No acute disease status post intubation. Electronically Signed: Fredy Holland MD at 18:30 EST , Service support , KUB X-Ray 09/26/17 17:23 IMPRESSION: OG tube placement in the mid gastric fundus. Subdiaphragmatic lucency on the left most likely artifactual however if concern for pneumoperitoneum upright film recommended Electronically Signed: Fredy Holland MD at 19:13 EST , Service support , Assessment/Plan Active and Suspected Problems Cardiac arrest (Acute) RECOMMENDATIONS: 1. Attempt spontaneous breathing trial 2. Possible transition to Precedex therapy 3. Arterial sheath removal per cardiology 4. Await echocardiogram 5. Culture and initiate antibiotics if temp greater than 37.9?C IMPRESSIONS: 1. V. fib arrest secondary to probable non-ST elevation NC Patient with chest pain and V. fib arrest while at home. Intubated emergently, so history is somewhat limited. Patient taken to the [facility] and found with significant blockages that have been intervened upon. Patient has been relatively hemodynamically stable since that point. Cardiology is currently following. Patient is on appropriate medications. Significant troponin noted. Repeat troponin is currently pending to evaluate for peak. 2. Acute combined respiratory failure secondary to V. fib arrest Patient does not have any acute infiltrates to suggest aspiration. No emesis has been reported by EMS. Patient does have a smoking history and chest x-ray is suggestive of hyperinflation. There are no significant wheezing on exam. Will attempt a spontaneous breathing trial. If patient is unable to tolerate spontaneous awakening trial, patient may need to be transition to Precedex therapy. Will repeat ABG at some point this morning to ensure respiratory failure has resolved. 3. Probable COPD/reduced BMI/poor background information Complicates care, management, recovery and prognosis. If patient is unable to be extubated today, initiation of tube feeds may be necessary. Will not start patient on steroid therapy at this time given lack of wheezing on exam. However, bronchodilators may be indicated empirically. TIME: 45 minutes critical care time spent addressing patient's V. fib arrest, acute combined respiratory failure, review of all data and collaboration with care team. (5:30 AM to 6:30 AM) Code Visit 9xxxx: [id number] Critical care first hour
--- NOTE | 2017-09-27 08:30 | CRPHASE1 ---
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:: Carlos Colindres - \ Admit Date:: 09/26/17 Phase I Charge:: Level I - Education Risk Factors/Lifestyle Smoking Status: Current every day smoker Second-Hand Smoke:: Yes Packs Smoked per Day: 1.5 Hx Hypertension: No Hx Diabetes Mellitus Type 2: No Hx Obesity: No Height: 1.6 m Weight:: 46.266 kg BMI: 18.0 Post-Menopausal: Yes Stress: Home/Family Caffeine: Yes Family History: Cancer, Heart Disease, Pulmonary Disease Laboratory Values: Cardiac Rehab Phase I Labs Triglycerides 158 mg/dL (-199) 09/27/17 04:55 Cholesterol 116 mg/dL (200) 09/27/17 04:55 LDL Cholesterol 34 mg/dL (0-130) 09/27/17 04:55 HDL Cholesterol 50 mg/dL (40-) 09/27/17 04:55 Phase I Education Given On:: [place], Nutrition, Antiplatelet medication, CHF, Smoking cessation, Diabetes - Type I, Diabetes - Type II - tralked with only Issues Affecting Care:: None Hospital Course Pain Description: Sharp, Tightness Hospital Course/Complications:: AT THIS TIME ON A VENTILATOR CPR PERFORMED AT HOME UNKNOWN OF HER CONDITION AT THIS TIME Cardiac Cath Date:: 09/26/17 Medical/Surgical History [place]:: Yes Angina:: Yes Pulmonary:: Yes COPD:: Yes Diabetes:: No Discharge/Home/Social Eval Marital Status: - AND HER PARENTS
--- NOTE | 2017-09-27 08:36 | CRPHASE1_ITS ---
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 - \ Admit Date:: 09/26/17 Phase I Charge:: Level I - Education Risk Factors/Lifestyle Smoking Status: Current every day smoker Second-Hand Smoke:: Yes Packs Smoked per Day: 1.5 Hx Hypertension: No Hx Diabetes Mellitus Type 2: No Hx Obesity: No Height: 1.6 m Weight:: 46.266 kg BMI: 18.0 Post-Menopausal: Yes Stress: Home/Family Caffeine: Yes Family History: Cancer, Heart Disease, Pulmonary Disease Laboratory Values: Cardiac Rehab Phase I Labs Triglycerides 158 mg/dL (-199) 09/27/17 04:55 Cholesterol 116 mg/dL (200) 09/27/17 04:55 LDL Cholesterol 34 mg/dL (0-130) 09/27/17 04:55 HDL Cholesterol 50 mg/dL (40-) 09/27/17 04:55 Phase I Education Given On:: [place], Nutrition, Antiplatelet medication, CHF, Smoking cessation, Diabetes - Type I, Diabetes - Type II - tralked with only Issues Affecting Care:: None Hospital Course Pain Description: Sharp, Tightness Hospital Course/Complications:: AT THIS TIME ON A VENTILATOR CPR PERFORMED AT HOME UNKNOWN OF HER CONDITION AT THIS TIME Cardiac Cath Date:: 09/26/17 Medical/Surgical History [place]:: Yes Angina:: Yes Pulmonary:: Yes COPD:: Yes Diabetes:: No Discharge/Home/Social Eval Marital Status: - AND HER PARENTS
--- NOTE | 2017-09-27 08:38 | CRPH1.INST_ITS ---
General Education CAD and cardiac anatomy and function:: Family communicates acknowledgment Explanation of diagnoses and procedures:: Family communicates acknowledgment Sign/Symptoms of TN:: Family communicates acknowledgment Antiplatelet therapy: Family communicates acknowledgment Proper use of NTG-SL: Family communicates acknowledgment Emergency procedures and activation of EMS: Family communicates acknowledgment Compliance of all prescribed medications: Family communicates acknowledgment Smoking Patient Nicotine/Smoking Risk Factors Are:: Cigarettes Recommendations Include:: Smoking cessation strategies/Smoking packet Nicotine/Smoking Response Code:: Family communicates acknowledgment Dyslipidemia Recommendations Include:: Lipid profile not available Overweight/Obesity Patient Overweight/Obesity Risk Factors Are:: BMI Normal [18-25 & < 65 years old ] Hypertension Patient Hypertension Risk Factors Are:: No documented hx of HTN Heart Disease Patient Heart Disease Risk Factors Are:: Family history of heart disease < 65 years old Recommendations Include:: Educated family members of importance of prevention of heart disease Heart Disease Response Code:: Family communicates acknowledgment Diabetes Patient Diabetes Risk Factors Are:: No documented hx of diabetes Metabolic Syndrome Recommendations Include:: Does not meet criteria Sedentary Sedentary Response Code:: Family communicates acknowledgment Stress Patient Stress Risk Factors Are:: Patient denies stress as a risk factor - SHE TAKES CARE OF ELDERLY PARENTS
[2017-09-27 08:51] LABS: CPK Total, Creatine Kinase 1124 U/L (26-192)
[2017-09-27] MEDS: TICAGRELOR 90 MG TABLET GT ×2 (10:12→21:45)
[2017-09-27] MEDS: Aspirin 81 MG TAB.CHEW GT (10:13)
[2017-09-27] MEDS: Lisinopril 2.5 MG Tablet GT (10:13)
[2017-09-27] MEDS: Famotidine 20 MG Tablet GT ×2 (10:17→21:45)
[2017-09-27] MEDS: Senna/Docusate Sodium 1 Tablet 2 TABLET GT ×2 (10:17→21:45)
--- NOTE | 2017-09-27 10:47 | PCM.PN.CARD ---
Subjectve: Patient doing fairly well, intubated, sedated, does open her eyes to commands, but does not squeeze my hand when asked. Has periods of significant agitation. Right groin is clean/dry/intact. Peak troponin thus far is a 5.6 and trending down to 17. Telemetry showed normal sinus rhythm, no arrhythmias. ABG markedly improved over last night. Objective: Vital Signs Temp Pulse Resp BP Pulse Ox 99.8 F H 60 14 82/65 L 98 09/27/17 07:00 09/27/17 10:42 09/27/17 10:42 09/27/17 08:00 09/27/17 10:42 Oxygen Delivery Method Mechanical Ventilator Weight: 102 lb Body Mass Index (BMI) 17.4 Intake and Output for Last 24 Hours 09/25/17 09/26/17 09/27/17 23:59 23:59 23:59 Intake Total 989 / 989 808 / 808 Output Total 1000 / 1000 590 / 590 Balance -11 / -11 218 / 218 General: Awake, Alert, Oriented x 3 HEENT: PERRL, EOMI, Sclera Non Icteric Neck: Supple, Good ROM, No Lymph Node Enlargement Lungs: Clear to auscultation Cardiovascular: Regular Rhythm, Normal S1, Normal S2, No Murmurs, No Rubs, No Gallops Vascular: No Carotid Bruits, Normal Femoral Pulses, Normal Radial Pulses, Normal Dorsalis Pedal Pulse, Normal Posterior Tibial Pulses Abdomen: Bowel Sounds Present, Soft, Non Tender, No HSM, No Organomegaly Extremities: No Cyanosis, No Clubbing, No edema Neurological: No Focal Motor or Sensory Deficit 09/26/17 18:07: pH 7.16 L*, Bicarbonate Actual 18.2 L, POC Total CO2 20, Base Excess -10 L, O2 Saturation 100 H, ABG pCO2 51.5 H, ABG pO2 229 H 09/26/17 19:05: WBC 15.5 H, RBC 4.01 L, Hgb 12.9, Hct 38.1, MCV 95.0, MCH 32.2 H, MCHC 33.9, RDW 14.3, RDW Differential 50.0 H, Plt Count 257, MPV 8.6 09/26/17 19:26: pH 7.25 L, Bicarbonate Actual 21.9 L, POC Total CO2 23, Base Excess -5 L, O2 Saturation 100 H, ABG pCO2 50.0 H, ABG pO2 219 H, Romero Test POS 09/26/17 21:15: Troponin I 22.70 H* 09/27/17 00:50: WBC 11.4 H, RBC 3.68 L, Hgb 11.6 L, Hct 34.7 L, MCV 94.3, MCH 31.5, MCHC 33.4, RDW 14.3, RDW Differential 49.1 H, Plt Count 195, MPV 8.1 09/27/17 00:50: Troponin I 25.60 H* 09/27/17 04:55: Sodium 141, Potassium 4.4, Chloride 109 H, Carbon Dioxide 23.0, Anion Gap 9, BUN 6 L, Creatinine 0.61, Est GFR (MDRD) Af Amer 129, Est GFR (MDRD) Non-Af 107, BUN/Creatinine Ratio 9.8 L, Glucose 86, Calcium 7.4 L, Triglycerides 158, Cholesterol 116, LDL Cholesterol 34, VLDL Cholesterol 32, HDL Cholesterol 50 09/27/17 04:55: WBC 13.0 H, RBC 3.75 L, Hgb 12.2, Hct 35.6 L, MCV 94.9, MCH 32.5 H, MCHC 34.3, RDW 14.4, RDW Differential 47.8 H, Plt Count 241, MPV 8.2 09/27/17 07:35: Troponin I 18.70 H* Rhythm: EKG: Normal sinus rhythm with resolving inferior ST elevation ECHO: Pending Stress Test: Cardiac Cath: PCI: CT Surgery: Holter monitor: EPS: PPM: CXR: Chest CT Scan: Assessment/Plan 1. Coronary artery disease: The patient is status post V. fib arrest at home requiring bystander CPR by her for approximately 10-15 minutes as best he can tell. The patient was emergently brought to the [facility] and found to have a critical lesion in her mid and proximal right coronary artery which was successfully stented with drug-eluting stents ?2. She has minor nonobstructive disease in her mid circumflex and mid LAD, which will require evaluation with stress testing when she has recovered. In the meantime she will continue baby aspirin, Brilinta, and low-dose beta-alan and lisinopril should her blood pressure be able to tolerate it. According to her she has chronically low blood pressure and is on no medications for it. 2. Hyperlipidemia: Continue Lipitor based therapy. Repeat lipid profile in 6 weeks time. 3. Respiratory arrest: The patient is currently intubated, and appreciate the assistance of Dr. Song with vent management. Her ABG today looks as though she may be able to begin weaning off the vent. 4. We will discontinue her right femoral artery sheath with FemoStop assistance. 5. Thank you very much for the opportunity to put dissipate in the cardiac care of your patient. Code Visit Inpatient E&M: [id number] Subs Hosp L2
--- NOTE | 2017-09-27 10:51 | PN.CARD_ITS ---
Subjectve: Patient doing fairly well, intubated, sedated, does open her eyes to commands, but does not squeeze my hand when asked. Has periods of significant agitation. Right groin is clean/dry/intact. Peak troponin thus far is a 5.6 and trending down to 17. Telemetry showed normal sinus rhythm, no arrhythmias. ABG markedly improved over last night. Objective: Vital Signs Temp Pulse Resp BP Pulse Ox 99.8 F H 60 14 82/65 L 98 09/27/17 07:00 09/27/17 10:42 09/27/17 10:42 09/27/17 08:00 09/27/17 10:42 Oxygen Delivery Method Mechanical Ventilator Weight: 102 lb Body Mass Index (BMI) 17.4 Intake and Output for Last 24 Hours 09/25/17 09/26/17 09/27/17 23:59 23:59 23:59 Intake Total 989 / 989 808 / 808 Output Total 1000 / 1000 590 / 590 Balance -11 / -11 218 / 218 General: Awake, Alert, Oriented x 3 HEENT: PERRL, EOMI, Sclera Non Icteric Neck: Supple, Good ROM, No Lymph Node Enlargement Lungs: Clear to auscultation Cardiovascular: Regular Rhythm, Normal S1, Normal S2, No Murmurs, No Rubs, No Gallops Vascular: No Carotid Bruits, Normal Femoral Pulses, Normal Radial Pulses, Normal Dorsalis Pedal Pulse, Normal Posterior Tibial Pulses Abdomen: Bowel Sounds Present, Soft, Non Tender, No HSM, No Organomegaly Extremities: No Cyanosis, No Clubbing, No edema Neurological: No Focal Motor or Sensory Deficit 09/26/17 18:07: pH 7.16 L*, Bicarbonate Actual 18.2 L, POC Total CO2 20, Base Excess -10 L, O2 Saturation 100 H, ABG pCO2 51.5 H, ABG pO2 229 H 09/26/17 19:05: WBC 15.5 H, RBC 4.01 L, Hgb 12.9, Hct 38.1, MCV 95.0, MCH 32.2 H , MCHC 33.9, RDW 14.3, RDW Differential 50.0 H, Plt Count 257, MPV 8.6 09/26/17 19:26: pH 7.25 L, Bicarbonate Actual 21.9 L, POC Total CO2 23, Base Excess -5 L, O2 Saturation 100 H, ABG pCO2 50.0 H, ABG pO2 219 H, Romero Test POS 09/26/17 21:15: Troponin I 22.70 H* 09/27/17 00:50: WBC 11.4 H, RBC 3.68 L, Hgb 11.6 L, Hct 34.7 L, MCV 94.3, MCH 31.5, MCHC 33.4, RDW 14.3, RDW Differential 49.1 H, Plt Count 195, MPV 8.1 09/27/17 00:50: Troponin I 25.60 H* 09/27/17 04:55: Sodium 141, Potassium 4.4, Chloride 109 H, Carbon Dioxide 23.0, Anion Gap 9, BUN 6 L, Creatinine 0.61, Est GFR (MDRD) Af Amer 129, Est GFR (MDRD ) Non-Af 107, BUN/Creatinine Ratio 9.8 L, Glucose 86, Calcium 7.4 L, Triglycerides 158, Cholesterol 116, LDL Cholesterol 34, VLDL Cholesterol 32, HDL Cholesterol 50 09/27/17 04:55: WBC 13.0 H, RBC 3.75 L, Hgb 12.2, Hct 35.6 L, MCV 94.9, MCH 32.5 H, MCHC 34.3, RDW 14.4, RDW Differential 47.8 H, Plt Count 241, MPV 8.2 09/27/17 07:35: Troponin I 18.70 H* Rhythm: EKG: Normal sinus rhythm with resolving inferior ST elevation ECHO: Pending Stress Test: Cardiac Cath: PCI: CT Surgery: Holter monitor: EPS: PPM: CXR: Chest CT Scan: Assessment/Plan 1. Coronary artery disease: The patient is status post V. fib arrest at home requiring bystander CPR by her for approximately 10-15 minutes as best he can tell. The patient was emergently brought to the [facility] and found to have a critical lesion in her mid and proximal right coronary artery which was successfully stented with drug-eluting stents ?2. She has minor nonobstructive disease in her mid circumflex and mid LAD, which will require evaluation with stress testing when she has recovered. In the meantime she will continue baby aspirin, Brilinta, and low-dose beta- alan and lisinopril should her blood pressure be able to tolerate it. According to her she has chronically low blood pressure and is on no medications for it. 2. Hyperlipidemia: Continue Lipitor based therapy. Repeat lipid profile in 6 weeks time. 3. Respiratory arrest: The patient is currently intubated, and appreciate the assistance of Dr. Song with vent management. Her ABG today looks as though she may be able to begin weaning off the vent. 4. We will discontinue her right femoral artery sheath with FemoStop assistance. 5. Thank you very much for the opportunity to put dissipate in the cardiac care of your patient. Code Visit Inpatient E&M: [id number] Subs Hosp L2
--- NOTE | 2017-09-27 11:54 | CASEMGMT ---
See RN CM Assessment. DC PLAN: undetermined. Pt is on ventilator. Per and daughter, she was independent prior to coming to hospital. -Family issue concerns as has had 2 episodes of swearing outbursts to nursing. SW will speak with him. Jocelyn OCHOAN RN ACM
--- NOTE | 2017-09-27 12:16 | CASEMGMT ---
SW participated in ICU rounds this morning, spoke w/ and daughter Sherie in the waiting room, offered support. stated that he and pt have talked about being DNRs, he hopes she will not be upset with her for doing CPR. SW offered support to . was very focused on when the pt came in, he stated they gave her Narcan, this did not work and they had to use the paddles. stated after pt was brought here, the chief deputy sheriff showed up and told his inlaws who live upstairs in the same house they needed to search the house for needles. (Pt cares for her parents who live upstairs) He stated people often think pt is a drug addict because she is so thin, and it upsets her. He explained her parents are senile and they are very upset over all of this. He stated he asked for a drug screen to be done here 3 times and it was not done. He said he was told today it's too late as she has been given meds that would affect the drug screen. appeared to be very upset about this, stated he wanted a drug screen to bring to the [facility] to prove them wrong. He said they have upset their home life, and if he has to put her parents in a prison now because of the mental stress from this, he does not know how he will tell the pt. SW explained if a drug test was not medically necessary, it may have not been ordered, even with his request. said he thinks that the hospital is trying to protect the [facility]. DARCY asked for clarification, if any charges were made, he states no. SW inquired if they did search the home, he states no, his father in law did not let them. He stated his father in law is very upset about it, was still talking about it today. DARCY attempted to offer support, however in regard to this issue pt's is inconsolable at this time. We discussed this situation multiple times. Pt's daughter Sherie told pt's to stop focusing on the above and to focus on the pt, and that this is what matters most. Sherie very tearful while talking about this. At one point pt's did take a phone call in the hallway, pt's daughter explained that he is very focused on this at present, expressed frustration as she would like him to be more focused on the patient. She explained that she is not truly their daughter but has known them for almost 20 years, and they think of her as their daughter. They do not have any children of their own. SW offered support to Sherie. Pt's came back into the room, continued to discuss the above frustrations he is having in regard to [employer] in [facility] and their accusations of pt being a drug addict. SW continued to listen and offer support, however appeared to become more frustrated with any attempt at explanation by SW or daughter. Daughter Sherie was still tearful, eventually got up and told pt's she would go speak w/pt's parents about what happened. Pt's continued to talk about this situation, stated he doesn't know what he will tell his . SW attempted to redirect and explain that we need to take things one day at a time, and to shift the focus to how pt is doing medically SW offered to call the pt advocate, pt's stated he already talked with someone today about it. RN then came into waiting room to take back to see pt. SW remains available to speak w/family as needed. did already speak w/Tamara, Nurse Log Chipper. SW did leave a message for the pt advocate as well to make her aware of the situation and the 's frustrations. ABEBA Salgado, COMMODITY LEAD
--- NOTE | 2017-09-27 12:49 | PN_ITS ---
Patient Problems: Active and Suspected Problems Cardiac arrest (Acute) Subjective: CC: NSTEMI She presented with Vfib cardiac arrest, status post heart catheterization with stents to her RCA. She remains on the mechanical ventilator. Vitals/I&O's: Vital Signs Temp Pulse Resp BP Pulse Ox 99.8 F H 62 14 77/60 L 98 09/27/17 07:00 09/27/17 11:20 09/27/17 11:20 09/27/17 11:20 09/27/17 11:20 Oxygen Delivery Method Mechanical Ventilator Weight: 46.266 kg Body Mass Index (BMI) 17.4 Intake and Output for Last 24 Hours 09/25/17 09/26/17 09/27/17 23:59 23:59 23:59 Intake Total 989 / 989 808 / 808 Output Total 1000 / 1000 590 / 590 Balance -11 / -11 218 / 218 General: Alert, Oriented x3 Oral: Moist Mucosa Neck: Supple, No JVD Lungs: Clear to auscultation, No rhonchi, No wheeze Cardiovascular: Regular Rhythm, Normal S1, Normal S2 Abdomen: Bowel Sounds Present, Soft, Non Tender, Non-Distended Neurological: Cranial nerves II-XII grossly intact, Deep Tendon Reflexes 2+/4 and Symmetrical, Motor Exam 5/5 strength throughout Laboratory Results 09/26/17 18:00: Activated Clotting Time 235 H 09/26/17 18:07: Specimen Type RIYA, pH 7.16 L*, Bicarbonate Actual 18.2 L, POC Total CO2 20, Base Excess -10 L, O2 Saturation 100 H, ABG pCO2 51.5 H, ABG pO2 229 H 09/26/17 18:27: Activated Clotting Time 202 H 09/26/17 19:05: Total Creatine Kinase 475 H 09/26/17 19:05: WBC 15.5 H, RBC 4.01 L, Hgb 12.9, Hct 38.1, MCV 95.0, MCH 32.2 H , MCHC 33.9, RDW 14.3, RDW Differential 50.0 H, Plt Count 257, MPV 8.6 09/26/17 19:05: MRSA (PCR) Negative 09/26/17 19:26: Specimen Type RIYA, pH 7.25 L, Bicarbonate Actual 21.9 L, POC Total CO2 23, Base Excess -5 L, O2 Saturation 100 H, O2 % 40, ABG pCO2 50.0 H, ABG pO2 219 H, Romero Test POS, Respiration Rate 14, O2 Delivery Device Vent, Minute Volume 14.00, Vent Mode A-C, Tidal Volume 400, POC PEEP 5, Blood Gas Notified Whom RILEY MASCORRO, Blood Gas Notified Time 192409/26/17 21:15: Troponin I 22.70 H* 09/26/17 23:33: POC Glucose 124 H 09/27/17 00:50: Total Creatine Kinase 871 H 09/27/17 00:50: WBC 11.4 H, RBC 3.68 L, Hgb 11.6 L, Hct 34.7 L, MCV 94.3, MCH 31.5, MCHC 33.4, RDW 14.3, RDW Differential 49.1 H, Plt Count 195, MPV 8.1 09/27/17 00:50: Troponin I 25.60 H* 09/27/17 04:55: Sodium 141, Potassium 4.4, Chloride 109 H, Carbon Dioxide 23.0, Anion Gap 9, BUN 6 L, Creatinine 0.61, Estim Creat Clear Calc 71.80, Est GFR ( MDRD) Af Amer 129, Est GFR (MDRD) Non-Af 107, BUN/Creatinine Ratio 9.8 L, Glucose 86, Calcium 7.4 L, Triglycerides 158, Cholesterol 116, LDL Cholesterol 34, VLDL Cholesterol 32, HDL Cholesterol 50 09/27/17 04:55: WBC 13.0 H, RBC 3.75 L, Hgb 12.2, Hct 35.6 L, MCV 94.9, MCH 32.5 H, MCHC 34.3, RDW 14.4, RDW Differential 47.8 H, Plt Count 241, MPV 8.2 09/27/17 07:35: Total Creatine Kinase 1124 H 09/27/17 07:35: Troponin I 18.70 H* Current Medications Aspirin (Aspirin, Baby) 81 mg GT DAILY@0800 [facility] Last Admin: 09/27/17 10:13 Dose: 81 mg Atorvastatin Calcium (Lipitor) 80 mg GT QHS [facility] Last Admin: 09/26/17 23:21 Dose: 80 mg Atropine Sulfate () 0.5 mg IV UD PRN PRN Reason: HR <50 bpm Famotidine (Pepcid) 20 mg GT BID [facility] Last Admin: 09/27/17 10:17 Dose: 20 mg Heparin Sodium (Beef Lung) (Heparin 500 Unit/5 Ml (100/Ml)) 500 unit IV UD PRN PRN Reason: HEPARIN FLUSH Fentanyl () 100 mls @ 5 mls/hr IV .Q20H ALIZA Last Admin: 09/27/17 05:25 Dose: 5 mls/hr Sodium Chloride () 250 mls @ 15 mls/hr IV .[id number] PRN PRN Reason: SALINE FLUSH Last Admin: 09/26/17 20:13 Dose: 15 mls/hr Sodium Chloride () 1,000 mls @ 1 mls/hr IV .Q48H PRN PRN Reason: SALINE FLUSH Propofol (Diprivan) 1,000 mg in 100 mls @ 1.359 mls/hr CONT INF .Q12H ALIZA; 5 MCG/KG/MIN PRN Reason: Protocol Last Admin: 09/27/17 10:08 Dose: Not Given Enteral Nutritional Formula (Vital Af 1.2 Dandy Liquid) 1,000 mls @ 45 mls/hr GT .[id number] [facility] Lisinopril (Zestril) 2.5 mg GT DAILY [facility] Last Admin: 09/27/17 10:13 Dose: 2.5 mg Metoprolol Tartrate (Lopressor (Beta Kenneth)) 12.5 mg GT BID [facility] Last Admin: 09/27/17 10:30 Dose: Not Given Senna/Docusate Sodium (Senokot-S, Ning-Colace) 2 tablet GT BID [facility] Last Admin: 09/27/17 10:17 Dose: 2 tablet Sodium Chloride () 500 ml IV BOLUS PRN PRN Reason: VASO-VAGAL PROTOCOL Sodium Chloride () 5 - 30 ml IV UD PRN PRN Reason: SALINE FLUSH Last Admin: 09/26/17 19:37 Dose: 30 ml Ticagrelor (Brilinta) 90 mg GT BID [facility] Last Admin: 09/27/17 10:12 Dose: 90 mg Assessment/Plan Active and Suspected Problems Cardiac arrest (Acute) 1 NSTEMI; s/p PTCA with stentin x 2 of her RCA. We will continue dual antiplatelet therapy, statins beta-blockers and ACEI 2. s/p Vfib arrest; due to #1 3. Respiratory failure with hypoxia; the patient is currently intubated on mechanical ventilator. Vent management per PCCM. 4. DVT prophylaxis with Lovenox. GIB ppx with SC heparin.
[2017-09-27 13:02] LABS: Hemoglobin 12.3 g/dl (12.0-15.0); Mean Corp Hgb Conc 34.2 g/gl (32-36); Mean Corpuscular Hgb 32.5 pg (27.0-32.0); Mean Platelet Vol. 8.5 fl (6.2-12.0); Platelet Count 240 K/mm3 (150-450); RBC Distribution Width CV 14.6 % (11.6-14.6); RBC Distribution Width SD 48.6 fl (35.1-43.9); Red Blood Count 3.79 M/mm3 (4.2-5.4); Scan Indicated on CBC? Y/N NO; White Blood Count 11.4 K/mm3 (4.4-11.0)
[2017-09-27] MEDS: Vital AF 1.2 Cal Liquid 1,000 ML 45 ML GT (14:45)
[2017-09-27 18:04] LABS: Hematocrit 35.4 % (37-47); Mean Corp Hgb Conc 33.9 g/gl (32-36); Mean Corpuscular Hgb 32.2 pg (27.0-32.0); Mean Corpuscular Volume 94.9 fL (81-99); Mean Platelet Vol. 8.3 fl (6.2-12.0); Platelet Count 220 K/mm3 (150-450); RBC Distribution Width CV 14.6 % (11.6-14.6); RBC Distribution Width SD 48.4 fl (35.1-43.9); Red Blood Count 3.73 M/mm3 (4.2-5.4)
[2017-09-27 18:12] LABS: Scan Indicated on CBC? Y/N NO
[2017-09-27 18:56] LABS: Bedside Glucose 95 mg/dL (70-110)
--- NOTE | 2017-09-27 18:59 | EKG12_ITS ---
Test Reason : AM EKG Blood Pressure : / mmHG Vent. Rate : 063 BPM Atrial Rate : 063 BPM P-R Int : 120 ms QRS Dur : 076 ms QT Int : 420 ms P-R-T Axes : 043 045 -34 degrees QTc Int : 429 ms Normal sinus rhythm Nonspecific ST and T wave abnormality Confirmed by BERRY MASCORRO, DAWIT ([id number]), film editor supervisor WONG DAVIDSON ([id number]) on 09/28/2017 1:43:50 PM Referred By: Carlos Colindres Confirmed By:DAWIT SMART MD
[2017-09-27] MEDS: Atorvastatin Calcium 80 MG Tablet GT (21:45)
[2017-09-28] VITALS (35 sets, daily range): BP systolic 75–143; BP diastolic 49–94; PULSE 52–99; RESP 10–26; TEMP 36.7–38.1; O2SAT 92–99
[2017-09-28 00:51] LABS: Bedside Glucose 102 mg/dL (70-110)
[2017-09-28 04:03] LABS: Absolute Lymphocyte Count 1.98 X10^3/ul (0.83-4.51); Absolute Neutrophil Count 7.2 X10^3/uL (2.0-7.7); Basophil# 0.01 X10^3/uL; Basophil% 0.1 % (0-1); Eosinophil# 0.05 X10^3/uL; Eosinophils% 0.5 % (0-5); Hematocrit 34.2 % (37-47); Hemoglobin 11.8 g/dl (12.0-15.0); Lymphocyte # 1.98 X10^3/ul (4.0); Lymphocyte % 19.3 % (19-41); Mean Corp Hgb Conc 34.5 g/gl (32-36); Mean Corpuscular Hgb 32.8 pg (27.0-32.0); Mean Platelet Vol. 8.7 fl (6.2-12.0); Monocyte% 9.7 % (0-10); Neutrophil % 70.1 % (47-70); Platelet Count 235 K/mm3 (150-450); RBC Distribution Width CV 14.6 % (11.6-14.6); RBC Distribution Width SD 48.5 fl (35.1-43.9); White Blood Count 10.3 K/mm3 (4.4-11.0)
[2017-09-28 04:09] LABS: POSITIVE COUNT NO; POSITIVE DIFFERENTIAL NO; POSITIVE MORPHOLOGY NO
[2017-09-28 04:29] LABS: Anion Gap 10 (5-15); BUN 10 mg/dL (7-18); BUN/Creat Ratio 21.8 RATIO (10-20); Chloride 111 mmol/L (98-107); Creatinine, Serum 0.46 mg/dL (0.55-1.02); EST Glomerular Filtration Rate 149 mL/min (>60); Est Glom Filt Rate - Afr Amer 181 mL/min (>60); Estimated Creatinine Clearance 98.55 ml/min; Glucose 86 mg/dL (74-106); Potassium 3.2 mmol/L (3.5-5.1); Sodium Level 141 mmol/L (136-145)
[2017-09-28] MEDS: CHLORHEXIDINE GLUC 2% CLOTH 1 EACH TOWELETTE TOPICAL (05:07)
[2017-09-28 05:36] LABS: Bedside Glucose 101 mg/dL (70-110)
--- NOTE | 2017-09-28 05:55 | EKG12_ITS ---
Test Reason : AM EKG Blood Pressure : / mmHG Vent. Rate : 069 BPM Atrial Rate : 069 BPM P-R Int : 124 ms QRS Dur : 082 ms QT Int : 396 ms P-R-T Axes : 048 040 -73 degrees QTc Int : 424 ms Normal sinus rhythm Normal ECG When compared with ECG of 27-SEP-2017 04:51, MANUAL COMPARISON REQUIRED, DATA IS UNCONFIRMED Confirmed by JODY COLINDRES ([id number]), business editor WONG DAVIDSON ([id number]) on 10/02/2017 2:19:06 PM Referred By: Jody Colindres Confirmed By:JODY COLINDRES
[2017-09-28 06:16] LABS: Allen Test POS; Base Excess -4 mmol/L (-2 to +2); Bicarbonate 20.5 mmol/L (22-26); Blood Gas Specimen Type ART; FI02 30; Mode CPAP PS; O2 Delivery Device Vent; PEEP 5; PO2 63 mmHG (75-100); PS 5; SITE R Radial; SO2 92 % (95-99); Time Given 604; Total Carbon Dioxide 21 mmol/L; pCO2 33.3 mmHg (35-45)
[2017-09-28] MEDS: 0.9% NaCl Peripheral Flush Adult/Peds IV (06:28)
[2017-09-28] MEDS: 0.9% NaCl IVPB Med Flush (250 mL) 15 ML IV (06:28)
--- NOTE | 2017-09-28 06:41 | NURSING ---
Pt was extubated this am ETT was intact and pt is tolerating extubation well on 3L NC.
--- NOTE | 2017-09-28 06:50 | PCM.PN.INT ---
Subjective: Patient did well overnight. No acute issues were reported. Patient did have femoral sheath removed yesterday without complication. Patient did have transition of sedation overnight. Nursing reports the patient has follow commands throughout the evening. Patient did tolerate a spontaneous breathing trial this morning and was successfully extubated under my direct supervision. Patient does report hoarseness, but no sore throat. Some chest pain with deep inhalation. General: Alert, Cooperative, No apparent distress, - - Appears older than stated age. Voice is hoarse, but strong HEENT: Atraumatic, PERRLA, EOMI, Normocephalic, - - No scleral icterus or injection noted. Oral: Moist Mucosa, No Gingival or Mucosal Lesions/ Ulcerations Neck: Supple, No JVD, No Nodes, Trachea Midline Lungs: No rhonchi, No wheeze, No rales, Diminished, - - Symmetric expansion. No dullness to percussion. Cardiovascular: Regular rate, Regular Rhythm, Normal S1, Normal S2, No murmurs, No rub noted, No Gallop Abdomen: Bowel Sounds Present, Soft, Non Tender, Non-Distended Extremities: No cyanosis, No edema, Capillary Refill Less than 3 Seconds, Clubbing, - - Groin site looks good without induration Skin: No rashes, No breakdown Musculoskeletal: No Tenderness to Palpation of Joints or Extremities, No Muscle Wasting Lymphatic: No Cervical, Supraclavicular, or Inguinal Adenopathy Neurological: Cranial nerves II-XII grossly intact, Neuro grossly intact, Motor Exam 5/5 strength throughout, Sensory exam intact to light touch and pain Psych/Mental Status: Normal Affect, Appropriate Vital Signs Temp Pulse Resp BP Pulse Ox 37.4 C H 84 20 H 108/68 95 09/28/17 06:00 09/28/17 06:00 09/28/17 06:00 09/28/17 06:00 09/28/17 06:00 Oxygen Delivery Method Mechanical Ventilator Weight: 46.2 kg Body Mass Index (BMI) 17.4 Intake and Output for Last 24 Hours 09/26/17 09/27/17 09/28/17 23:59 23:59 23:59 Intake Total 989 / 989 2227 / 2227 283.8 / 283.8 Output Total 1000 / 1000 1240 / 1240 100 / 100 Balance -11 / -11 987 / 987 183.8 / 183.8 Labs (Last 48 Hours) 09/26/17 09/26/17 09/26/17 18:00 18:07 18:27 WBC RBC Hgb Hct MCV MCH MCHC RDW RDW Differential Plt Count MPV Immature Gran % (Auto) Neut % (Auto) Lymph % (Auto) Treasure % (Auto) Eos % (Auto) Baso % (Auto) Absolute Neuts (auto) Absolute Lymphs (auto) Total Counted Activated Clotting Time 235 H 202 H Specimen Type RIYA Sample Site pH 7.16 L* Bicarbonate Actual 18.2 L POC Total CO2 20 Base Excess -10 L O2 Saturation 100 H O2 % ABG pCO2 51.5 H ABG pO2 229 H Romero Test Respiration Rate O2 Delivery Device Minute Volume Vent Mode Tidal Volume POC PEEP POC Pressure Suppt Blood Gas Notified Whom Blood Gas Notified Time Sodium Potassium Chloride Carbon Dioxide Anion Gap BUN Creatinine Estim Creat Clear Calc Est GFR (MDRD) Af Amer Est GFR (MDRD) Non-Af BUN/Creatinine Ratio Glucose Calcium Total Creatine Kinase Troponin I Triglycerides Cholesterol LDL Cholesterol VLDL Cholesterol HDL Cholesterol MRSA (PCR) POC Glucose 09/26/17 09/26/17 09/26/17 19:05 19:05 19:05 WBC 15.5 H RBC 4.01 L Hgb 12.9 Hct 38.1 MCV 95.0 MCH 32.2 H MCHC 33.9 RDW 14.3 RDW Differential 50.0 H Plt Count 257 MPV 8.6 Immature Gran % (Auto) Neut % (Auto) Lymph % (Auto) Treasure % (Auto) Eos % (Auto) Baso % (Auto) Absolute Neuts (auto) Absolute Lymphs (auto) Total Counted Activated Clotting Time Specimen Type Sample Site pH Bicarbonate Actual POC Total CO2 Base Excess O2 Saturation O2 % ABG pCO2 ABG pO2 Romero Test Respiration Rate O2 Delivery Device Minute Volume Vent Mode Tidal Volume POC PEEP POC Pressure Suppt Blood Gas Notified Whom Blood Gas Notified Time Sodium Potassium Chloride Carbon Dioxide Anion Gap BUN Creatinine Estim Creat Clear Calc Est GFR (MDRD) Af Amer Est GFR (MDRD) Non-Af BUN/Creatinine Ratio Glucose Calcium Total Creatine Kinase 475 H Troponin I Triglycerides Cholesterol LDL Cholesterol VLDL Cholesterol HDL Cholesterol MRSA (PCR) Negative POC Glucose 09/26/17 09/26/17 09/26/17 19:26 21:15 23:33 WBC RBC Hgb Hct MCV MCH MCHC RDW RDW Differential Plt Count MPV Immature Gran % (Auto) Neut % (Auto) Lymph % (Auto) Treasure % (Auto) Eos % (Auto) Baso % (Auto) Absolute Neuts (auto) Absolute Lymphs (auto) Total Counted Activated Clotting Time Specimen Type RIYA Sample Site pH 7.25 L Bicarbonate Actual 21.9 L POC Total CO2 23 Base Excess -5 L O2 Saturation 100 H O2 % 40 ABG pCO2 50.0 H ABG pO2 219 H Romero Test POS Respiration Rate 14 O2 Delivery Device Vent Minute Volume 14.00 Vent Mode A-C Tidal Volume 400 POC PEEP 5 POC Pressure Suppt Blood Gas Notified Whom [facility] Blood Gas Notified Time 192 Sodium Potassium Chloride Carbon Dioxide Anion Gap BUN Creatinine Estim Creat Clear Calc Est GFR (MDRD) Af Amer Est GFR (MDRD) Non-Af BUN/Creatinine Ratio Glucose Calcium Total Creatine Kinase Troponin I 22.70 H* Triglycerides Cholesterol LDL Cholesterol VLDL Cholesterol HDL Cholesterol MRSA (PCR) POC Glucose 124 H 09/27/17 09/27/17 09/27/17 00:50 00:50 00:50 WBC 11.4 H RBC 3.68 L Hgb 11.6 L Hct 34.7 L MCV 94.3 MCH 31.5 MCHC 33.4 RDW 14.3 RDW Differential 49.1 H Plt Count 195 MPV 8.1 Immature Gran % (Auto) Neut % (Auto) Lymph % (Auto) Treasure % (Auto) Eos % (Auto) Baso % (Auto) Absolute Neuts (auto) Absolute Lymphs (auto) Total Counted Activated Clotting Time Specimen Type Sample Site pH Bicarbonate Actual POC Total CO2 Base Excess O2 Saturation O2 % ABG pCO2 ABG pO2 Romero Test Respiration Rate O2 Delivery Device Minute Volume Vent Mode Tidal Volume POC PEEP POC Pressure Suppt Blood Gas Notified Whom Blood Gas Notified Time Sodium Potassium Chloride Carbon Dioxide Anion Gap BUN Creatinine Estim Creat Clear Calc Est GFR (MDRD) Af Amer Est GFR (MDRD) Non-Af BUN/Creatinine Ratio Glucose Calcium Total Creatine Kinase 871 H Troponin I 25.60 H* Triglycerides Cholesterol LDL Cholesterol VLDL Cholesterol HDL Cholesterol MRSA (PCR) POC Glucose 09/27/17 09/27/17 09/27/17 04:55 04:55 07:35 WBC 13.0 H RBC 3.75 L Hgb 12.2 Hct 35.6 L MCV 94.9 MCH 32.5 H MCHC 34.3 RDW 14.4 RDW Differential 47.8 H Plt Count 241 MPV 8.2 Immature Gran % (Auto) Neut % (Auto) Lymph % (Auto) Treasure % (Auto) Eos % (Auto) Baso % (Auto) Absolute Neuts (auto) Absolute Lymphs (auto) Total Counted Activated Clotting Time Specimen Type Sample Site pH Bicarbonate Actual POC Total CO2 Base Excess O2 Saturation O2 % ABG pCO2 ABG pO2 Romero Test Respiration Rate O2 Delivery Device Minute Volume Vent Mode Tidal Volume POC PEEP POC Pressure Suppt Blood Gas Notified Whom Blood Gas Notified Time Sodium 141 Potassium 4.4 Chloride 109 H Carbon Dioxide 23.0 Anion Gap 9 BUN 6 L Creatinine 0.61 Estim Creat Clear Calc 71.80 Est GFR (MDRD) Af Amer 129 Est GFR (MDRD) Non-Af 107 BUN/Creatinine Ratio 9.8 L Glucose 86 Calcium 7.4 L Total Creatine Kinase 1124 H Troponin I Triglycerides 158 Cholesterol 116 LDL Cholesterol 34 VLDL Cholesterol 32 HDL Cholesterol 50 MRSA (PCR) POC Glucose 09/27/17 09/27/17 09/27/17 07:35 12:55 17:40 WBC 11.4 H 10.0 RBC 3.79 L 3.73 L Hgb 12.3 12.0 Hct 36.0 L 35.4 L MCV 95.0 94.9 MCH 32.5 H 32.2 H MCHC 34.2 33.9 RDW 14.6 14.6 RDW Differential 48.6 H 48.4 H Plt Count 240 220 MPV 8.5 8.3 Immature Gran % (Auto) Neut % (Auto) Lymph % (Auto) Treasure % (Auto) Eos % (Auto) Baso % (Auto) Absolute Neuts (auto) Absolute Lymphs (auto) Total Counted Activated Clotting Time Specimen Type Sample Site pH Bicarbonate Actual POC Total CO2 Base Excess O2 Saturation O2 % ABG pCO2 ABG pO2 Romero Test Respiration Rate O2 Delivery Device Minute Volume Vent Mode Tidal Volume POC PEEP POC Pressure Suppt Blood Gas Notified Whom Blood Gas Notified Time Sodium Potassium Chloride Carbon Dioxide Anion Gap BUN Creatinine Estim Creat Clear Calc Est GFR (MDRD) Af Amer Est GFR (MDRD) Non-Af BUN/Creatinine Ratio Glucose Calcium Total Creatine Kinase Troponin I 18.70 H* Triglycerides Cholesterol LDL Cholesterol VLDL Cholesterol HDL Cholesterol MRSA (PCR) POC Glucose 09/27/17 09/28/17 09/28/17 18:47 00:48 03:45 WBC RBC Hgb Hct MCV MCH MCHC RDW RDW Differential Plt Count MPV Immature Gran % (Auto) Neut % (Auto) Lymph % (Auto) Treasure % (Auto) Eos % (Auto) Baso % (Auto) Absolute Neuts (auto) Absolute Lymphs (auto) Total Counted Activated Clotting Time Specimen Type Sample Site pH Bicarbonate Actual POC Total CO2 Base Excess O2 Saturation O2 % ABG pCO2 ABG pO2 Romero Test Respiration Rate O2 Delivery Device Minute Volume Vent Mode Tidal Volume POC PEEP POC Pressure Suppt Blood Gas Notified Whom Blood Gas Notified Time Sodium 141 Potassium 3.2 L Chloride 111 H Carbon Dioxide 20.0 L Anion Gap 10 BUN 10 Creatinine 0.46 L Estim Creat Clear Calc 98.55 Est GFR (MDRD) Af Amer 181 Est GFR (MDRD) Non-Af 149 BUN/Creatinine Ratio 21.8 H Glucose 86 Calcium 7.0 L Total Creatine Kinase Troponin I Triglycerides Cholesterol LDL Cholesterol VLDL Cholesterol HDL Cholesterol MRSA (PCR) POC Glucose 95 102 09/28/17 09/28/17 09/28/17 03:45 05:29 06:11 WBC 10.3 RBC 3.60 L Hgb 11.8 L Hct 34.2 L MCV 95.0 MCH 32.8 H MCHC 34.5 RDW 14.6 RDW Differential 48.5 H Plt Count 235 MPV 8.7 Immature Gran % (Auto) 0.300 Neut % (Auto) 70.1 H Lymph % (Auto) 19.3 Treasure % (Auto) 9.7 Eos % (Auto) 0.5 Baso % (Auto) 0.1 Absolute Neuts (auto) 7.2 Absolute Lymphs (auto) 1.98 Total Counted Not Reportable Activated Clotting Time Specimen Type ART Sample Site R Radial pH 7.40 Bicarbonate Actual 20.5 L POC Total CO2 21 Base Excess -4 L O2 Saturation 92 L O2 % 30 ABG pCO2 33.3 L ABG pO2 63 L Romero Test POS Respiration Rate O2 Delivery Device Vent Minute Volume Vent Mode CPAP PS Tidal Volume POC PEEP 5 POC Pressure Suppt 5 Blood Gas Notified Whom ICU MD Blood Gas Notified Time 604 Sodium Potassium Chloride Carbon Dioxide Anion Gap BUN Creatinine Estim Creat Clear Calc Est GFR (MDRD) Af Amer Est GFR (MDRD) Non-Af BUN/Creatinine Ratio Glucose Calcium Total Creatine Kinase Troponin I Triglycerides Cholesterol LDL Cholesterol VLDL Cholesterol HDL Cholesterol MRSA (PCR) POC Glucose 101 Assessment/Plan Active and Suspected Problems Cardiac arrest (Acute) RECOMMENDATIONS: 1. Wean oxygen as tolerated 2. Aggressive potassium repletion 3. Increase activity as tolerated 4. Possible transfer from the intensive care unit later today 5. Initiate p.o. diet if tolerates bedside swallow IMPRESSIONS: 1. V. fib arrest secondary to probable non-ST elevation ND Patient has had femoral sheath removed without complication. Patient appears to be doing well. Will aggressively replete potassium as patient is at high risk for reperfusion arrhythmias. Patient will likely need to be monitored for an additional 48-72 hours for electrical disturbance. Would defer to cardiology. 2. Acute combined respiratory failure secondary to V. fib arrest Patient does not have any acute infiltrates to suggest aspiration. No emesis has been reported by EMS. Patient did spike a fever overnight, but secretions have been minimal. Patient was successfully extubated. Clinical suspicion for COPD, so bronchodilator should be continued. Would not proceed with steroids at this time. Outpatient pulmonary function test for quantification and clarification of lung function would be appropriate. 3. Probable COPD/reduced BMI/poor background information Complicates care, management, recovery and prognosis. She addition of p.o. diet if able to pass a swallow eval. Will not start patient on steroid therapy at this time given lack of wheezing on exam. However, bronchodilators may be indicated empirically. TIME: 31 minutes critical care time spent addressing patient's V. fib arrest, acute combined respiratory failure, review of all data and collaboration with care team. (5:30 AM to 6:30 AM) Code Visit [id number]: [id number] Critical care first hour
--- NOTE | 2017-09-28 09:40 | PN_ITS ---
Patient Problems: Active and Suspected Problems Cardiac arrest (Acute) Subjective: CC: Vfib/NSTEMI She presented with Vfib cardiac arrest, she status post heart catheterization with 2 stents to her RCA. She intubated but has now been liberated from mechanical ventilator. She is alert and oriented to time place and person and does not appear to be any form of distress. Vitals/I&O's: Vital Signs Temp Pulse Resp BP Pulse Ox 98.8 F 87 15 121/80 H 96 09/28/17 08:00 09/28/17 09:00 09/28/17 09:00 09/28/17 09:00 09/28/17 09:00 Oxygen Flow Rate 2 Oxygen Delivery Method Nasal Cannula Weight: 46.2 kg Body Mass Index (BMI) 17.4 Intake and Output for Last 24 Hours 09/26/17 09/27/17 09/28/17 23:59 23:59 23:59 Intake Total 989 / 989 2227 / 2227 283.8 / 283.8 Output Total 1000 / 1000 1240 / 1240 100 / 100 Balance -11 / -11 987 / 987 183.8 / 183.8 General: Alert, Oriented x3 HEENT: Atraumatic Oral: Moist Mucosa Neck: Supple Lungs: Clear to auscultation Cardiovascular: Regular rate, Normal S1, Normal S2 Abdomen: Bowel Sounds Present, Soft, Non Tender Neurological: Cranial nerves II-XII grossly intact, Motor Exam 5/5 strength throughout Laboratory Results 09/27/17 12:55: WBC 11.4 H, RBC 3.79 L, Hgb 12.3, Hct 36.0 L, MCV 95.0, MCH 32.5 H, MCHC 34.2, RDW 14.6, RDW Differential 48.6 H, Plt Count 240, MPV 8.5 09/27/17 17:40: WBC 10.0, RBC 3.73 L, Hgb 12.0, Hct 35.4 L, MCV 94.9, MCH 32.2 H , MCHC 33.9, RDW 14.6, RDW Differential 48.4 H, Plt Count 220, MPV 8.3 09/27/17 18:47: POC Glucose 95 09/28/17 00:48: POC Glucose 102 09/28/17 03:45: Sodium 141, Potassium 3.2 L, Chloride 111 H, Carbon Dioxide 20.0 L, Anion Gap 10, BUN 10, Creatinine 0.46 L, Estim Creat Clear Calc 98.55, Est GFR (MDRD) Af Amer 181, Est GFR (MDRD) Non-Af 149, BUN/Creatinine Ratio 21.8 H, Glucose 86, Calcium 7.0 L 09/28/17 03:45: WBC 10.3, RBC 3.60 L, Hgb 11.8 L, Hct 34.2 L, MCV 95.0, MCH 32.8 H, MCHC 34.5, RDW 14.6, RDW Differential 48.5 H, Plt Count 235, MPV 8.7, Immature Gran % (Auto) 0.300, Neut % (Auto) 70.1 H, Lymph % (Auto) 19.3, [place] % (Auto) 9.7, Eos % (Auto) 0.5, Baso % (Auto) 0.1, Absolute Neuts (auto) 7.2, Absolute Lymphs (auto) 1.98, Total Counted Not Reportable 09/28/17 05:29: POC Glucose 101 09/28/17 06:11: Specimen Type ART, Sample Site R Radial, pH 7.40, Bicarbonate Actual 20.5 L, POC Total CO2 21, Base Excess -4 L, O2 Saturation 92 L, O2 % 30, ABG pCO2 33.3 L, ABG pO2 63 L, Romero Test POS, O2 Delivery Device Vent, Vent Mode CPAP PS, POC PEEP 5, POC Pressure Suppt 5, Blood Gas Notified Whom ICU MD, Blood Gas Notified Time 604 Current Medications Aspirin (Aspirin, Baby) 81 mg GT DAILY@0800 [facility] Last Admin: 09/27/17 10:13 Dose: 81 mg Atorvastatin Calcium (Lipitor) 80 mg GT QHS [facility] Last Admin: 09/27/17 21:45 Dose: 80 mg Atropine Sulfate () 0.5 mg IV UD PRN PRN Reason: HR <50 bpm Chlorhexidine Gluconate () 1 each TOPICAL DAILY [facility] Last Admin: 09/28/17 05:07 Dose: 1 each Famotidine (Pepcid) 20 mg GT BID [facility] Last Admin: 09/27/17 21:45 Dose: 20 mg Heparin Sodium (Beef Lung) (Heparin 500 Unit/5 Ml (100/Ml)) 500 unit IV UD PRN PRN Reason: HEPARIN FLUSH Sodium Chloride () 250 mls @ 15 mls/hr IV .[id number] PRN PRN Reason: SALINE FLUSH Last Admin: 09/28/17 06:28 Dose: 15 mls/hr Sodium Chloride () 1,000 mls @ 1 mls/hr IV .Q48H PRN PRN Reason: SALINE FLUSH Potassium Chloride 40 meq/ (Dextrose) 520 mls @ 130 mls/hr IV X1 ONE Stop: 09/28/17 10:09 Last Admin: 09/28/17 06:27 Dose: 130 mls/hr Lisinopril (Zestril) 2.5 mg GT DAILY [facility] Last Admin: 09/27/17 10:13 Dose: 2.5 mg Metoprolol Tartrate (Lopressor (Beta Kenneth)) 12.5 mg GT BID [facility] Last Admin: 09/27/17 21:44 Dose: Not Given Nutritional Formula (Lactose Free) (Ensure Enlive) 120 ml PO 4X/DAY [facility] Senna/Docusate Sodium (Senokot-S, Ning-Colace) 2 tablet GT BID [facility] Last Admin: 09/27/17 21:45 Dose: 2 tablet Sodium Chloride () 500 ml IV BOLUS PRN PRN Reason: VASO-VAGAL PROTOCOL Sodium Chloride () 5 - 30 ml IV UD PRN PRN Reason: SALINE FLUSH Last Admin: 09/28/17 06:28 Dose: 10 ml Ticagrelor (Brilinta) 90 mg GT BID [facility] Last Admin: 09/27/17 21:45 Dose: 90 mg Assessment/Plan Active and Suspected Problems Cardiac arrest (Acute) 1 NSTEMI; s/p PTCA with stenting x 2 of her RCA. We will continue dual antiplatelet therapy, statins beta-blockers and ACEI 2. s/p Vfib arrest; due to #1 3. Respiratory failure with hypoxia; the patient is currently extubated , she is on O2 per nasal cannula , we will wean as tolerated. 4. DVT prophylaxis with Lovenox. GIB ppx with SC heparin.
[2017-09-28] MEDS: Ondansetron 4 MG/2 ML Vial IV (10:08)
[2017-09-28] MEDS: Lisinopril 2.5 MG Tablet GT (11:19)
[2017-09-28] MEDS: TICAGRELOR 90 MG TABLET GT (11:20)
[2017-09-28] MEDS: Famotidine 20 MG Tablet GT (11:20)
[2017-09-28] MEDS: Metoprolol Tartrate 25 MG Tablet 12.5 MG GT (11:21)
[2017-09-28] MEDS: Aspirin 81 MG TAB.CHEW GT (11:21)
[2017-09-28] MEDS: Senna/Docusate Sodium 1 Tablet 2 TABLET GT (11:22)
--- NOTE | 2017-09-28 11:29 | PCM.PN.CARD ---
Subjectve: Patient extubated this morning, awake, alert, answers questions appropriately. Family at bedside. Telemetry showed normal sinus rhythm with rare PVCs. Right groin is clean/dry/intact, no hematoma or bruits. Hemoglobin baseline anemia with no significant decrease since admission. Creatinine stable. Objective: Vital Signs Temp Pulse Resp BP Pulse Ox 98.8 F 99 15 135/74 H 96 09/28/17 08:00 09/28/17 11:21 09/28/17 09:00 09/28/17 11:21 09/28/17 09:00 Oxygen Flow Rate 1 Oxygen Delivery Method Nasal Cannula Weight: 101 lb 13.657 oz Body Mass Index (BMI) 17.4 Intake and Output for Last 24 Hours 09/26/17 09/27/17 09/28/17 23:59 23:59 23:59 Intake Total 989 / 989 2227 / 2227 283.8 / 283.8 Output Total 1000 / 1000 1240 / 1240 100 / 100 Balance -11 / -11 987 / 987 183.8 / 183.8 General: Awake, Alert, Oriented x 3 HEENT: PERRL, EOMI, Sclera Non Icteric Neck: Supple, Good ROM, No Lymph Node Enlargement Lungs: Clear to auscultation Cardiovascular: Regular Rhythm, Normal S1, Normal S2, No Murmurs, No Rubs, No Gallops Vascular: No Carotid Bruits, Normal Femoral Pulses, Normal Radial Pulses, Normal Dorsalis Pedal Pulse, Normal Posterior Tibial Pulses Abdomen: Bowel Sounds Present, Soft, Non Tender, No HSM, No Organomegaly Extremities: No Cyanosis, No Clubbing, No edema Neurological: No Focal Motor or Sensory Deficit 09/27/17 12:55: WBC 11.4 H, RBC 3.79 L, Hgb 12.3, Hct 36.0 L, MCV 95.0, MCH 32.5 H, MCHC 34.2, RDW 14.6, RDW Differential 48.6 H, Plt Count 240, MPV 8.5 09/27/17 17:40: WBC 10.0, RBC 3.73 L, Hgb 12.0, Hct 35.4 L, MCV 94.9, MCH 32.2 H, MCHC 33.9, RDW 14.6, RDW Differential 48.4 H, Plt Count 220, MPV 8.3 09/28/17 03:45: Sodium 141, Potassium 3.2 L, Chloride 111 H, Carbon Dioxide 20.0 L, Anion Gap 10, BUN 10, Creatinine 0.46 L, Est GFR (MDRD) Af Amer 181, Est GFR (MDRD) Non-Af 149, BUN/Creatinine Ratio 21.8 H, Glucose 86, Calcium 7.0 L 09/28/17 03:45: WBC 10.3, RBC 3.60 L, Hgb 11.8 L, Hct 34.2 L, MCV 95.0, MCH 32.8 H, MCHC 34.5, RDW 14.6, RDW Differential 48.5 H, Plt Count 235, MPV 8.7, Immature Gran % (Auto) 0.300, Neut % (Auto) 70.1 H, Lymph % (Auto) 19.3, [place] % (Auto) 9.7, Eos % (Auto) 0.5, Baso % (Auto) 0.1, Absolute Neuts (auto) 7.2, Total Counted Not Reportable 09/28/17 06:11: pH 7.40, Bicarbonate Actual 20.5 L, POC Total CO2 21, Base Excess -4 L, O2 Saturation 92 L, ABG pCO2 33.3 L, ABG pO2 63 L, Romero Test POS Rhythm: EKG: Normal sinus rhythm with resolving inferior ST segment elevation and now T-wave inversion. ECHO: Normal LV function, unable to quantitate RVSP. Stress Test: Cardiac Cath: PCI: CT Surgery: Holter monitor: EPS: PPM: CXR: Chest CT Scan: Assessment/Plan 1. Coronary artery disease: The patient is status post V. fib arrest at home requiring bystander CPR by her for approximately 10-15 minutes as best he can tell. The patient was emergently brought to the Dental Treatment Coordinator and found to have a critical lesion in her mid and proximal right coronary artery which was successfully stented with drug-eluting stents ?2. She has minor nonobstructive disease in her mid circumflex and mid LAD, which will require evaluation with stress testing when she has recovered. In the meantime she will continue baby aspirin, Brilinta, and low-dose beta-alan and lisinopril should her blood pressure be able to tolerate it. According to her she has chronically low blood pressure and is on no medications for it. Patient's blood pressure is much better postextubation, and we will initiate this therapy today. 2. Hyperlipidemia: Continue Lipitor based therapy. Repeat lipid profile in 6 weeks time. 3. Respiratory arrest: Patient weaned off ventilator this morning and is conversing well. Hopefully no ill effects from her CPR arrest. 4. Right groin is clean/dry/intact. Continue routine post procedure sheath removal. 5. Thank you very much for the opportunity to put dissipate in the cardiac care of your patient. Code Visit Inpatient E&M: [id number] Subs Hosp L2
--- NOTE | 2017-09-28 11:32 | PN.CARD_ITS ---
Subjectve: Patient extubated this morning, awake, alert, answers questions appropriately. Family at bedside. Telemetry showed normal sinus rhythm with rare PVCs. Right groin is clean/dry/intact, no hematoma or bruits. Hemoglobin baseline anemia with no significant decrease since admission. Creatinine stable. Objective: Vital Signs Temp Pulse Resp BP Pulse Ox 98.8 F 99 15 135/74 H 96 09/28/17 08:00 09/28/17 11:21 09/28/17 09:00 09/28/17 11:21 09/28/17 09:00 Oxygen Flow Rate 1 Oxygen Delivery Method Nasal Cannula Weight: 101 lb 13.657 oz Body Mass Index (BMI) 17.4 Intake and Output for Last 24 Hours 09/26/17 09/27/17 09/28/17 23:59 23:59 23:59 Intake Total 989 / 989 2227 / 2227 283.8 / 283.8 Output Total 1000 / 1000 1240 / 1240 100 / 100 Balance -11 / -11 987 / 987 183.8 / 183.8 General: Awake, Alert, Oriented x 3 HEENT: PERRL, EOMI, Sclera Non Icteric Neck: Supple, Good ROM, No Lymph Node Enlargement Lungs: Clear to auscultation Cardiovascular: Regular Rhythm, Normal S1, Normal S2, No Murmurs, No Rubs, No Gallops Vascular: No Carotid Bruits, Normal Femoral Pulses, Normal Radial Pulses, Normal Dorsalis Pedal Pulse, Normal Posterior Tibial Pulses Abdomen: Bowel Sounds Present, Soft, Non Tender, No HSM, No Organomegaly Extremities: No Cyanosis, No Clubbing, No edema Neurological: No Focal Motor or Sensory Deficit 09/27/17 12:55: WBC 11.4 H, RBC 3.79 L, Hgb 12.3, Hct 36.0 L, MCV 95.0, MCH 32.5 H, MCHC 34.2, RDW 14.6, RDW Differential 48.6 H, Plt Count 240, MPV 8.5 09/27/17 17:40: WBC 10.0, RBC 3.73 L, Hgb 12.0, Hct 35.4 L, MCV 94.9, MCH 32.2 H , MCHC 33.9, RDW 14.6, RDW Differential 48.4 H, Plt Count 220, MPV 8.3 09/28/17 03:45: Sodium 141, Potassium 3.2 L, Chloride 111 H, Carbon Dioxide 20.0 L, Anion Gap 10, BUN 10, Creatinine 0.46 L, Est GFR (MDRD) Af Amer 181, Est GFR (MDRD) Non-Af 149, BUN/Creatinine Ratio 21.8 H, Glucose 86, Calcium 7.0 L 09/28/17 03:45: WBC 10.3, RBC 3.60 L, Hgb 11.8 L, Hct 34.2 L, MCV 95.0, MCH 32.8 H, MCHC 34.5, RDW 14.6, RDW Differential 48.5 H, Plt Count 235, MPV 8.7, Immature Gran % (Auto) 0.300, Neut % (Auto) 70.1 H, Lymph % (Auto) 19.3, [place] % (Auto) 9.7, Eos % (Auto) 0.5, Baso % (Auto) 0.1, Absolute Neuts (auto) 7.2, Total Counted Not Reportable 09/28/17 06:11: pH 7.40, Bicarbonate Actual 20.5 L, POC Total CO2 21, Base Excess -4 L, O2 Saturation 92 L, ABG pCO2 33.3 L, ABG pO2 63 L, Romero Test POS Rhythm: EKG: Normal sinus rhythm with resolving inferior ST segment elevation and now T- wave inversion. ECHO: Normal LV function, unable to quantitate RVSP. Stress Test: Cardiac Cath: PCI: CT Surgery: Holter monitor: EPS: PPM: CXR: Chest CT Scan: Assessment/Plan 1. Coronary artery disease: The patient is status post V. fib arrest at home requiring bystander CPR by her for approximately 10-15 minutes as best he can tell. The patient was emergently brought to the Parachute/Combatant Diver Officer and found to have a critical lesion in her mid and proximal right coronary artery which was successfully stented with drug-eluting stents ?2. She has minor nonobstructive disease in her mid circumflex and mid LAD, which will require evaluation with stress testing when she has recovered. In the meantime she will continue baby aspirin, Brilinta, and low-dose beta- alan and lisinopril should her blood pressure be able to tolerate it. According to her she has chronically low blood pressure and is on no medications for it. Patient's blood pressure is much better postextubation, and we will initiate this therapy today. 2. Hyperlipidemia: Continue Lipitor based therapy. Repeat lipid profile in 6 weeks time. 3. Respiratory arrest: Patient weaned off ventilator this morning and is conversing well. Hopefully no ill effects from her CPR arrest. 4. Right groin is clean/dry/intact. Continue routine post procedure sheath removal. 5. Thank you very much for the opportunity to put dissipate in the cardiac care of your patient. Code Visit Inpatient E&M: [id number] Subs Hosp L2
[2017-09-28] MEDS: Ibuprofen 600 MG Tablet PO (20:07)
[2017-09-28] MEDS: Atorvastatin Calcium 80 MG Tablet PO (21:28)
[2017-09-28] MEDS: Famotidine 20 MG Tablet PO (21:28)
[2017-09-28] MEDS: Senna/Docusate Sodium 1 Tablet 2 TABLET PO (21:28)
[2017-09-28] MEDS: Metoprolol Tartrate 25 MG Tablet 12.5 MG PO (21:29)
[2017-09-28] MEDS: TICAGRELOR 90 MG TABLET PO (21:29)
[2017-09-29] VITALS (17 sets, daily range): BP systolic 107–152; BP diastolic 71–90; PULSE 68–94; RESP 15–26; TEMP 36.7–37.6; O2SAT 89–99
[2017-09-29 05:25] LABS: Anion Gap 10 (5-15); BUN 8 mg/dL (7-18); BUN/Creat Ratio 13.9 RATIO (10-20); Calcium,Total 8.5 mg/dL (8.5-10.1); Chloride 107 mmol/L (98-107); Creatinine, Serum 0.58 mg/dL (0.55-1.02); EST Glomerular Filtration Rate 115 mL/min (>60); Est Glom Filt Rate - Afr Amer 139 mL/min (>60); Estimated Creatinine Clearance 78.05 ml/min; Glucose 74 mg/dL (74-106); Sodium Level 141 mmol/L (136-145)
--- NOTE | 2017-09-29 05:55 | EKG12_ITS ---
Test Reason : AM EKG Blood Pressure : / mmHG Vent. Rate : 073 BPM Atrial Rate : 073 BPM P-R Int : 130 ms QRS Dur : 080 ms QT Int : 410 ms P-R-T Axes : 084 038 -06 degrees QTc Int : 451 ms Normal sinus rhythm Normal ECG When compared with ECG of 28-SEP-2017 05:15, MANUAL COMPARISON REQUIRED, DATA IS UNCONFIRMED Confirmed by NITO MASCORRO, ESTELA ([id number]), script editor WONG DAVIDSON ([id number]) on 10/03/2017 2:40:21 PM Referred By: Carlos Colindres Confirmed By:ESTELA BEAUCHAMP MD
--- NOTE | 2017-09-29 06:35 | PCM.PN.INT ---
Subjective: Patient did well overnight. No acute issues were reported. Patient has been weaned to room air. Patient continues to report chest pain and back pain and has been given Motrin. However, patient is refusing any stronger medications for fear of addiction. Intermittent nausea has been reported. Patient appears to have some issues with short-term memory. Objective: No significant ventricular ectopy noted on telemetry General: Alert, Cooperative, No apparent distress, - - Peaking in full sentences. HEENT: Atraumatic, PERRLA, EOMI, Normocephalic, - - No scleral icterus or injection noted. Oral: Moist Mucosa, No Gingival or Mucosal Lesions/ Ulcerations Neck: Supple, No JVD, No Nodes, Trachea Midline Lungs: No rhonchi, No wheeze, Diminished, Rales - Posteriorly with deep inhalation Cardiovascular: Regular rate, Regular Rhythm, Normal S1, Normal S2, No murmurs, No rub noted, No Gallop, - - Pain on palpation of the costochondral junctions Abdomen: Bowel Sounds Present, Soft, Non Tender, Non-Distended Extremities: No cyanosis, No edema, Capillary Refill Less than 3 Seconds, Clubbing Skin: No rashes, No breakdown Musculoskeletal: No Tenderness to Palpation of Joints or Extremities, No Muscle Wasting Lymphatic: No Cervical, Supraclavicular, or Inguinal Adenopathy Neurological: Cranial nerves II-XII grossly intact, Neuro grossly intact, Motor Exam 5/5 strength throughout Psych/Mental Status: Appropriate, Flat Affect Vital Signs Temp Pulse Resp BP Pulse Ox 36.7 C 94 24 H 121/84 H 90 09/29/17 04:00 09/29/17 06:00 09/29/17 06:00 09/29/17 06:00 09/29/17 06:00 Oxygen Flow Rate 2 Oxygen Delivery Method Room Air Weight: 45.4 kg Body Mass Index (BMI) 17.4 Intake and Output for Last 24 Hours 09/27/17 09/28/17 09/29/17 23:59 23:59 23:59 Intake Total 2227 / 2227 1403.8 / 1403.8 60 / 60 Output Total 1240 / 1240 1650 / 1650 225 / 225 Balance 987 / 987 -246.2 / -246.2 -165 / -165 Labs (Last 48 Hours) 09/27/17 09/27/17 09/27/17 07:35 07:35 12:55 WBC 11.4 H RBC 3.79 L Hgb 12.3 Hct 36.0 L MCV 95.0 MCH 32.5 H MCHC 34.2 RDW 14.6 RDW Differential 48.6 H Plt Count 240 MPV 8.5 Immature Gran % (Auto) Neut % (Auto) Lymph % (Auto) [place] % (Auto) Eos % (Auto) Baso % (Auto) Absolute Neuts (auto) Absolute Lymphs (auto) Total Counted Specimen Type Sample Site pH Bicarbonate Actual POC Total CO2 Base Excess O2 Saturation O2 % ABG pCO2 ABG pO2 Romero Test O2 Delivery Device Vent Mode POC PEEP POC Pressure Suppt Blood Gas Notified Whom Blood Gas Notified Time Sodium Potassium Chloride Carbon Dioxide Anion Gap BUN Creatinine Estim Creat Clear Calc Est GFR (MDRD) Af Amer Est GFR (MDRD) Non-Af BUN/Creatinine Ratio Glucose Calcium Total Creatine Kinase 1124 H Troponin I 18.70 H* POC Glucose 09/27/17 09/27/17 09/28/17 17:40 18:47 00:48 WBC 10.0 RBC 3.73 L Hgb 12.0 Hct 35.4 L MCV 94.9 MCH 32.2 H MCHC 33.9 RDW 14.6 RDW Differential 48.4 H Plt Count 220 MPV 8.3 Immature Gran % (Auto) Neut % (Auto) Lymph % (Auto) [place] % (Auto) Eos % (Auto) Baso % (Auto) Absolute Neuts (auto) Absolute Lymphs (auto) Total Counted Specimen Type Sample Site pH Bicarbonate Actual POC Total CO2 Base Excess O2 Saturation O2 % ABG pCO2 ABG pO2 Romero Test O2 Delivery Device Vent Mode POC PEEP POC Pressure Suppt Blood Gas Notified Whom Blood Gas Notified Time Sodium Potassium Chloride Carbon Dioxide Anion Gap BUN Creatinine Estim Creat Clear Calc Est GFR (MDRD) Af Amer Est GFR (MDRD) Non-Af BUN/Creatinine Ratio Glucose Calcium Total Creatine Kinase Troponin I POC Glucose 95 102 09/28/17 09/28/17 09/28/17 03:45 03:45 05:29 WBC 10.3 RBC 3.60 L Hgb 11.8 L Hct 34.2 L MCV 95.0 MCH 32.8 H MCHC 34.5 RDW 14.6 RDW Differential 48.5 H Plt Count 235 MPV 8.7 Immature Gran % (Auto) 0.300 Neut % (Auto) 70.1 H Lymph % (Auto) 19.3 [place] % (Auto) 9.7 Eos % (Auto) 0.5 Baso % (Auto) 0.1 Absolute Neuts (auto) 7.2 Absolute Lymphs (auto) 1.98 Total Counted Not Reportable Specimen Type Sample Site pH Bicarbonate Actual POC Total CO2 Base Excess O2 Saturation O2 % ABG pCO2 ABG pO2 Romero Test O2 Delivery Device Vent Mode POC PEEP POC Pressure Suppt Blood Gas Notified Whom Blood Gas Notified Time Sodium 141 Potassium 3.2 L Chloride 111 H Carbon Dioxide 20.0 L Anion Gap 10 BUN 10 Creatinine 0.46 L Estim Creat Clear Calc 98.55 Est GFR (MDRD) Af Amer 181 Est GFR (MDRD) Non-Af 149 BUN/Creatinine Ratio 21.8 H Glucose 86 Calcium 7.0 L Total Creatine Kinase Troponin I POC Glucose 101 09/28/17 09/29/17 06:11 04:30 WBC RBC Hgb Hct MCV MCH MCHC RDW RDW Differential Plt Count MPV Immature Gran % (Auto) Neut % (Auto) Lymph % (Auto) [place] % (Auto) Eos % (Auto) Baso % (Auto) Absolute Neuts (auto) Absolute Lymphs (auto) Total Counted Specimen Type ART Sample Site R Radial pH 7.40 Bicarbonate Actual 20.5 L POC Total CO2 21 Base Excess -4 L O2 Saturation 92 L O2 % 30 ABG pCO2 33.3 L ABG pO2 63 L Romero Test POS O2 Delivery Device Vent Vent Mode CPAP PS POC PEEP 5 POC Pressure Suppt 5 Blood Gas Notified Whom ICU MD Blood Gas Notified Time 604 Sodium 141 Potassium 4.0 Chloride 107 Carbon Dioxide 24.0 Anion Gap 10 BUN 8 Creatinine 0.58 Estim Creat Clear Calc 78.05 Est GFR (MDRD) Af Amer 139 Est GFR (MDRD) Non-Af 115 BUN/Creatinine Ratio 13.9 Glucose 74 Calcium 8.5 Total Creatine Kinase Troponin I POC Glucose Assessment/Plan Active and Suspected Problems Cardiac arrest (Acute) RECOMMENDATIONS: 1. Walking oximetry prior to discharge 2. Increase activity as tolerated 3. Discharge per cardiology 4. Okay to transfer from the intensive care unit from my perspective 5. Patient should follow-up as an outpatient in 4-6 weeks for evaluation of COPD IMPRESSIONS: 1. V. fib arrest secondary to probable non-ST elevation CA Patient has had femoral sheath removed without complication. Patient appears to be doing well. No further ventricular arrhythmias have been noted overnight. Potassium is in propria range. Her to cardiology on discharge timing. 2. Acute combined respiratory failure secondary to V. fib arrest Patient does not have any acute infiltrates to suggest aspiration. No emesis has been reported by EMS. Patient is doing well on room air. Patient will need a walking oximetry prior to discharge. Patient is at increased risk of atelectasis secondary to costochondritis associated with receiving CPR. Patient does have significant clubbing on exam and likely should be evaluated with pulmonary function tests as an outpatient. Smoking cessation was discussed with the patient and her throughout the hospitalization. 3. Probable COPD/reduced BMI/poor background information Complicates care, management, recovery and prognosis. She is currently tolerating a p.o. diet. Will not start patient on steroid therapy at this time given lack of wheezing on exam. However, bronchodilators may be indicated empirically. 4. Possible anoxic encephalopathy Patient has no focal neurologic deficits noted on exam. However, patient does appear to have some issues with memory. Unclear if this is significant from baseline, but may indicate consequences of prolonged decreased perfusion. Code Visit Inpatient E&M: [id number] Subs Hosp L3
[2017-09-29] MEDS: Aspirin 81 MG TAB.CHEW PO (07:44)
[2017-09-29] MEDS: 0.9% NaCl Peripheral Flush Adult/Peds IV (07:45)
--- NOTE | 2017-09-29 09:43 | PCM.PN.CARD ---
Subjectve: Patient continues to improve clinically, still with some fogginess from her CPR event, it is possible the patient may have had some minor anoxic brain deficiency during her CPR arrest. Telemetry negative. EKG shows normal sinus rhythm with resolving inferior ST changes. Objective: Vital Signs Temp Pulse Resp BP Pulse Ox 99.6 F H 77 19 H 124/79 H 93 09/29/17 08:00 09/29/17 08:00 09/29/17 08:00 09/29/17 08:00 09/29/17 08:00 Oxygen Flow Rate 2 Oxygen Delivery Method Room Air Weight: 100 lb 1.438 oz Body Mass Index (BMI) 17.4 Intake and Output for Last 24 Hours 09/27/17 09/28/17 09/29/17 23:59 23:59 23:59 Intake Total 2227 / 2227 1403.8 / 1403.8 60 / 60 Output Total 1240 / 1240 1650 / 1650 225 / 225 Balance 987 / 987 -246.2 / -246.2 -165 / -165 General: Awake, Alert, Oriented x 3 HEENT: PERRL, EOMI, Sclera Non Icteric Neck: Supple, Good ROM, No Lymph Node Enlargement Lungs: Clear to auscultation Cardiovascular: Regular Rhythm, Normal S1, Normal S2, No Murmurs, No Rubs, No Gallops Vascular: No Carotid Bruits, Normal Femoral Pulses, Normal Radial Pulses, Normal Dorsalis Pedal Pulse, Normal Posterior Tibial Pulses Abdomen: Bowel Sounds Present, Soft, Non Tender, No HSM, No Organomegaly Extremities: No Cyanosis, No Clubbing, No edema Neurological: No Focal Motor or Sensory Deficit 09/29/17 04:30: Sodium 141, Potassium 4.0, Chloride 107, Carbon Dioxide 24.0, Anion Gap 10, BUN 8, Creatinine 0.58, Est GFR (MDRD) Af Amer 139, Est GFR (MDRD) Non-Af 115, BUN/Creatinine Ratio 13.9, Glucose 74, Calcium 8.5 Rhythm: EKG: ECHO: Stress Test: Cardiac Cath: PCI: CT Surgery: Holter monitor: EPS: PPM: CXR: Chest CT Scan: Assessment/Plan 1. Coronary artery disease: The patient is status post V. fib arrest at home requiring bystander CPR by her for approximately 10-15 minutes as best he can tell. The patient was emergently brought to the Patient Care Representative and found to have a critical lesion in her mid and proximal right coronary artery which was successfully stented with drug-eluting stents ?2. She has minor nonobstructive disease in her mid circumflex and mid LAD, which will require evaluation with stress testing when she has recovered. In the meantime she will continue baby aspirin, Brilinta, and low-dose beta-alan and lisinopril should her blood pressure be able to tolerate it. According to her she has chronically low blood pressure and is on no medications for it. Patient's blood pressure is much better postextubation, and we will initiate this therapy today. After speaking with the patient today and conversing with her the patient appears to have no recollection of her events from her CPR rest, and has some minor mental fogginess since extubation. Hopefully this will improve clinically going forward. It appears to be getting better each day. Would not recommend any CT scan at this time. 2. Hyperlipidemia: Continue Lipitor based therapy. Repeat lipid profile in 6 weeks time. 3. Respiratory arrest: Patient weaned off ventilator this morning and is conversing well. Hopefully no ill effects from her CPR arrest. 4. Right groin is clean/dry/intact. Continue routine post procedure sheath removal. 5. Thank you very much for the opportunity to put dissipate in the cardiac care of your patient. Discussed with Dr. Song. Patient may be discharged home today. She will follow-up with me going forward and have arrangements for a treadmill echocardiogram in 3 weeks time to assess her left circumflex system. Code Visit Inpatient E&M: [id number] Subs Hosp L2
--- NOTE | 2017-09-29 09:47 | PN.CARD_ITS ---
Subjectve: Patient continues to improve clinically, still with some fogginess from her CPR event, it is possible the patient may have had some minor anoxic brain deficiency during her CPR arrest. Telemetry negative. EKG shows normal sinus rhythm with resolving inferior ST changes. Objective: Vital Signs Temp Pulse Resp BP Pulse Ox 99.6 F H 77 19 H 124/79 H 93 09/29/17 08:00 09/29/17 08:00 09/29/17 08:00 09/29/17 08:00 09/29/17 08:00 Oxygen Flow Rate 2 Oxygen Delivery Method Room Air Weight: 100 lb 1.438 oz Body Mass Index (BMI) 17.4 Intake and Output for Last 24 Hours 09/27/17 09/28/17 09/29/17 23:59 23:59 23:59 Intake Total 2227 / 2227 1403.8 / 1403.8 60 / 60 Output Total 1240 / 1240 1650 / 1650 225 / 225 Balance 987 / 987 -246.2 / -246.2 -165 / -165 General: Awake, Alert, Oriented x 3 HEENT: PERRL, EOMI, Sclera Non Icteric Neck: Supple, Good ROM, No Lymph Node Enlargement Lungs: Clear to auscultation Cardiovascular: Regular Rhythm, Normal S1, Normal S2, No Murmurs, No Rubs, No Gallops Vascular: No Carotid Bruits, Normal Femoral Pulses, Normal Radial Pulses, Normal Dorsalis Pedal Pulse, Normal Posterior Tibial Pulses Abdomen: Bowel Sounds Present, Soft, Non Tender, No HSM, No Organomegaly Extremities: No Cyanosis, No Clubbing, No edema Neurological: No Focal Motor or Sensory Deficit 09/29/17 04:30: Sodium 141, Potassium 4.0, Chloride 107, Carbon Dioxide 24.0, Anion Gap 10, BUN 8, Creatinine 0.58, Est GFR (MDRD) Af Amer 139, Est GFR (MDRD ) Non-Af 115, BUN/Creatinine Ratio 13.9, Glucose 74, Calcium 8.5 Rhythm: EKG: ECHO: Stress Test: Cardiac Cath: PCI: CT Surgery: Holter monitor: EPS: PPM: CXR: Chest CT Scan: Assessment/Plan 1. Coronary artery disease: The patient is status post V. fib arrest at home requiring bystander CPR by her for approximately 10-15 minutes as best he can tell. The patient was emergently brought to the [facility] and found to have a critical lesion in her mid and proximal right coronary artery which was successfully stented with drug-eluting stents ?2. She has minor nonobstructive disease in her mid circumflex and mid LAD, which will require evaluation with stress testing when she has recovered. In the meantime she will continue baby aspirin, Brilinta, and low-dose beta- alan and lisinopril should her blood pressure be able to tolerate it. According to her she has chronically low blood pressure and is on no medications for it. Patient's blood pressure is much better postextubation, and we will initiate this therapy today. After speaking with the patient today and conversing with her the patient appears to have no recollection of her events from her CPR rest, and has some minor mental fogginess since extubation. Hopefully this will improve clinically going forward. It appears to be getting better each day. Would not recommend any CT scan at this time. 2. Hyperlipidemia: Continue Lipitor based therapy. Repeat lipid profile in 6 weeks time. 3. Respiratory arrest: Patient weaned off ventilator this morning and is conversing well. Hopefully no ill effects from her CPR arrest. 4. Right groin is clean/dry/intact. Continue routine post procedure sheath removal. 5. Thank you very much for the opportunity to put dissipate in the cardiac care of your patient. Discussed with Dr. Song. Patient may be discharged home today. She will follow-up with me going forward and have arrangements for a treadmill echocardiogram in 3 weeks time to assess her left circumflex system. Code Visit Inpatient E&M: [id number] Subs Hosp L2
[2017-09-29] MEDS: CHLORHEXIDINE GLUC 2% CLOTH 1 EACH TOWELETTE TOPICAL (09:53)
[2017-09-29] MEDS: Metoprolol Tartrate 25 MG Tablet 12.5 MG PO (09:54)
[2017-09-29] MEDS: Famotidine 20 MG Tablet PO (09:54)
[2017-09-29] MEDS: TICAGRELOR 90 MG TABLET PO (09:54)
[2017-09-29] MEDS: Lisinopril 2.5 MG Tablet PO (09:55)
--- NOTE | 2017-09-29 10:36 | PCM.DC ---
- Discharge Diagnoses Current Active Problems: Current Active and Chronic Problems Cardiac arrest (Acute) You will use the following diet at home:: No restrictions Your food should be the consistency of: Regular Your liquids should be the consistency of: Regular/Thin Discharge Activity: Return to Normal Activity Weight Bearing Status: Full weight bearing Additional Instructions: no smoking Allergies/Adverse Reactions: Allergies Penicillins Allergy (Verified 09/26/17 17:22) Unknown Medications to take at Discharge Aspirin [Aspirin, Baby] 81 mg PO DAILY@0800 tab.chew 09/29/17 Atorvastatin Calcium [Lipitor] 80 mg PO QHS #30 tab 09/29/17 Lisinopril [Zestril] 2.5 mg PO DAILY #30 tab 09/29/17 Metoprolol Tartrate [Lopressor (beta alan)] 12.5 mg PO BID #30 tab 09/29/17 Ticagrelor [Brilinta] 90 mg PO BID #60 tab 09/29/17 The following prescriptions were given: Atorvastatin Calcium [Lipitor] 80 mg PO QHS #30 tab Lisinopril [Zestril] 2.5 mg PO DAILY #30 tab Metoprolol Tartrate [Lopressor (beta alan)] 12.5 mg PO BID #30 tab Ticagrelor [Brilinta] 90 mg PO BID #60 tab Primary Care Physician: Care Physician,No Primary [Primary Care Provider] - Please follow up with your Primary Care Physician in: in 2-3 weeks Please Follow Up With: Carlos Colindres MD When: in one week
[2017-09-29] MEDS: Clopidogrel Bisulfate 300 MG Tablet PO (12:12)
--- NOTE | 2017-09-30 21:25 | PCM.DC.SUM ---
Discharge Date and Diagnosis Date of Admission: 09/26/17 Date of Discharge: 09/29/17 - Primary Discharge Diagnosis #1 V. fib arrest #2 non-STEMI #3 coronary artery disease #4 combined respiratory arrest secondary to V. fib #5 coronary artery disease #6 hyperlipidemia #7 probable chronic obstructive pulmonary disease #8 mild anoxic encephalopathy Hospital Course and Treatment Operations: None Procedures: Cardiac catheterization - With placement of drug-eluting stent in mid RCA and proximal LCA with pre-and post dilation Summary of Care Provided: The patient is a 57 year old F seen in the emergency room at [facility] after sustaining a V. fib arrest at home where she was shocked and intubated. Patient was brought to the emergency room and transferred to the [facility] where a cardiac catheterization was performed revealing both obstructive coronary artery disease in the right coronary artery and nonocclusive coronary artery disease. 2 drug-eluting stents were placed in the RCA after dilation. There is no evidence of thrombus noted. Patient was admitted to the ICU, seen by critical care and remained on the ventilator over the next several days until she was extubated successfully on 09/28/17. Patient was noted to have mild possible anoxic encephalopathy, this seemed to be minimal however. On 09/29/17, patient was seen and examined felt in stable condition for discharge home Discharge Activity: Return to Normal Activity Weight Bearing Status: Full weight bearing Home Medications: Medications to take at Discharge Aspirin [Aspirin, Baby] 81 mg PO DAILY@0800 tab.chew 09/29/17 Atorvastatin Calcium [Lipitor] 80 mg PO QHS #30 tab 09/29/17 Clopidogrel Bisulfate [Plavix] 75 mg PO DAILY #30 tab 09/29/17 Lisinopril [Zestril] 2.5 mg PO DAILY #30 tab 09/29/17 Metoprolol Tartrate [Lopressor (beta kenneth)] 12.5 mg PO BID #30 tab 09/29/17 Following Prescrptions Were Given to Patient: Atorvastatin Calcium [Lipitor] 80 mg PO QHS #30 tab Clopidogrel Bisulfate [Plavix] 75 mg PO DAILY #30 tab Lisinopril [Zestril] 2.5 mg PO DAILY #30 tab Metoprolol Tartrate [Lopressor (beta kenneth)] 12.5 mg PO BID #30 tab Primary Care Physician: Care Physician,No Primary [Primary Care Provider] - Please follow up with your Primary Care Physician in: in 2-3 weeks Please Follow Up With: Cralos Colindres MD When: in one week Disposition: Home Minutes spent on discharge:: 35 Patient Condition:: Stable Meaningful Use Info Meaningful Use Diagnoses (Choose all that apply): AMI - AMI Aspirin given w/in 24hrs of arrival?: Yes ASA at discharge?: Yes Statins at discharge?: Yes Alexei/ARB at discharge?: Yes Beta Kenneth at discharge?: Yes Done w/ Acute [place] measure.: Yes Code Visit Inpatient E&M: 96116 Disch Hosp
== END 2017-09-29 12:50 | disposition home or self-care (01) | DRG 116 ==
LOC: ED 17:33 → ICU 17:41
PROVIDERS: Internal Medicine; Internal Medicine Cardiovascular Disease; Internal Medicine Critical Care Medicine; Admitting Provider Internal Medicine; Emergency Provider Emergency Medicine; Visit Provider Internal Medicine
DX: I21.4 Non-ST elevation (NSTEMI) myocardial infarction (principal); J96.01 Acute respiratory failure with hypoxia; I46.2 Cardiac arrest due to underlying cardiac condition; G93.1 Anoxic brain damage, not elsewhere classified; R64 Cachexia; J44.9 Chronic obstructive pulmonary disease, unspecified; I49.01 Ventricular fibrillation; E78.5 Hyperlipidemia, unspecified; F17.210 Nicotine dependence, cigarettes, uncomplicated; Z68.1 Body mass index [BMI] 19.9 or less, adult; I25.110 Atherosclerotic heart disease of native coronary artery with unstable angina pectoris
CPT/HCPCS: 31500; 31720; 36600; 71045; 74018; 80048; 80061; 82550; 82803; 82962; 84484; 84703; 85025; 85027; 85347; 87641; 92928; 93005; 93306; 93458; 94002; 94003; 94660; 95831; 97802; 99251; 99285; J7030; J7050; A4216; C1725; C1769; C1874; C1887; C8929; C9600; G0463; J2405; J3490; Q9967

== ENCOUNTER → 2017-11-07 10:32 | Outpatient (CLI) | payer MEDICAID, SELFPAY ==
[2017-09-27 08:35] VITALS: BMI 18.0
--- NOTE | 2017-11-07 10:34 | STE_ITS ---
Reason For Study: CAD, NSTEMI Stress Results Protocol: Dobutamine Stress Echo Maximum Predicted HR: 163 bpm Target HR: 139 bpm% Maximum Pre dicted HR: 85 % DurationHeart Rate Stage (mm:ss) (bpm) BP Baseline 71 113/70 DSE 10 MCG 3:48 61 107/62 DSE 20 MCG 3:25 13 0 105/63 DSE 30 MCG 1:31 13 9 124/79 Recovery 84 118/72 Stress Duration: 8:44 mm:ss Maximum Stress HR: 139 bpmM ETS: 1 Baseline Echocardiogram Findings The estimated ejection fraction is 65 %. Stress Echo Wall motion Data Resting WMIntermediate WMStress WM Resting Wall Motion Wall Motion Int. Wall Motion Stress Infero-Basal: Mildly hypokinetic.No regional wall motion No regional wall motion abnormalities noted. abnormalities noted. EKG Data Normal intervals are noted. The patient was titrated from 10 mcg to a maximun of 30 mcg of dobutamine during the stress. The maximum heart rate attained was 142 beats per minute. This was 87% of maximum predicted heart rate. At peak infusion, upsloping ST changes only were noted, which did not meet the criteria for ischemia. No clinical angina was noted. Interpretation Summary Infero-Basal: Mildly hypokinetic The patient was titrated from 10 mcg to a maximun of 30 mcg of dobutamine during the stress. Normal, adequate, dobutamine echocardiogram. Negative for ischemia by EKG and echocardiographic criteria. No anginal symptoms noted. Rare PACs noted. Appropriate blood pressure response to dobutamine. Test terminated due to the attainment of target heart rate. No complications. Final LVEF is 75%. Ordering Physician: Mele Judd Referring Physician: Carlos Colindres Performed By: Shauna Judd, YUE, RVT
== END ==
PROVIDERS: Family Provider Family Medicine; PCP Family Medicine; Visit Provider Internal Medicine Cardiovascular Disease
DX: I25.10 Atherosclerotic heart disease of native coronary artery without angina pectoris (principal); E78.2 Mixed hyperlipidemia; Z98.61 Coronary angioplasty status
CPT/HCPCS: 93017; 93350; J7030; A4216

== ENCOUNTER → 2017-12-05 12:53 | Outpatient (CLI) | payer MEDICAID, SELFPAY ==
[2017-09-27 08:35] VITALS: BMI 18.0
--- NOTE | 2017-12-05 12:54 | BI_ITS ---
MAMMOGRAPHY - BILATERAL SCREENING REASON FOR EXAM: Female, 57 years old. Routine annual screening examination. PERTINENT HISTORY: NO FAM HX LOST 20# CPR FOR 15 MIN -HEART ATTACK 09/2017-PT C/O TENDER AREAS WITHIN THE BREAST MOSTLY ON THE LEFT SIDE NO SX TECHNIQUE: Digital bilateral breast rick (3D mammographic acquisition) in the CC and MLO projections. 2-D mediolateral oblique (MLO) and craniocaudad (CC) views of both breasts were obtained. CAD: Full Field Digital Mammography with Computer Added Detection was performed. COMPARISON: 02/05/2013. FINDINGS: Breast Composition: The breasts are heterogeneously dense, which may obscure small masses. There are no dominant masses or suspicious calcifications. No other significant abnormalities are identified. BI/SCREENING MAMM (CAD), BILAT IMPRESSION: Stable bilateral screening mammogram. Yearly follow-up mammogram recommended. (A) ASSESSMENT CATEGORY: BIRADS Category 2: Benign. A letter regarding these results will be sent to the patient by the facility within 30 days. Approximately 10% of breast cancers are not detected by mammography. A normal mammogram should not delay biopsy of a clinically suspicious abnormality. [id number] Electronically Signed: Shae Cruz MD at 17:12 EDT Tel , Service support ,
== END ==
PROVIDERS: Family Provider Family Medicine; PCP Family Medicine; Visit Provider Family Medicine
DX: Z12.31 Encounter for screening mammogram for malignant neoplasm of breast (principal)
CPT/HCPCS: 77063; 77067

== ENCOUNTER → 2017-12-09 09:15 | Outpatient (CLI) | payer MEDICAID, SELFPAY ==
[2017-09-27 08:35] VITALS: BMI 18.0
[2017-12-09 10:02] LABS: AST(SGOT) 24 U/L (15-37); Alanine Aminotransfer ALT/SGPT 30 U/L (13-56); Albumin, Serum 4.4 g/dL (3.2-5.0); Alkaline Phosphatase 107 U/L (45-117); Bilirubin, Direct 0.11 mg/dL (0.00-0.30); Cholesterol 114 mg/dL (200); Globulin 4.1 g/dL (2.2-4.2); High Density Lipoprotein 69 mg/dL; Protein, Total 8.5 g/dL (6.4-8.2); Triglycerides 175 mg/dL; Very Low Density Lipoprotein 35 mg/dL (5-40)
== END ==
PROVIDERS: Family Provider Family Medicine; PCP Family Medicine; Visit Provider Nurse Practitioner Family
DX: I25.10 Atherosclerotic heart disease of native coronary artery without angina pectoris (principal); E78.2 Mixed hyperlipidemia
CPT/HCPCS: 36415; 80061; 80076

== ENCOUNTER → 2017-12-14 10:38 | Outpatient (CLI) | payer MEDICAID, SELFPAY ==
[2017-09-27 08:35] VITALS: BMI 18.0
[2017-12-15 11:45] LABS: Hep C Antibodies <0.1 s/co ratio (0.0-0.9)
[2017-12-18 14:26] LABS: HPV Reflexed? NOT INDICATED
== END ==
PROVIDERS: Family Provider Family Medicine; PCP Family Medicine; Visit Provider Family Medicine
DX: Z20.9 Contact with and (suspected) exposure to unspecified communicable disease (principal); Z12.4 Encounter for screening for malignant neoplasm of cervix
CPT/HCPCS: 36415; 86803; 88175; G0145

== ENCOUNTER → 2018-07-25 10:35 | Outpatient (CLI) | payer MEDICAID, SELFPAY ==
[2017-09-27 08:35] VITALS: BMI 18.0
[2018-07-15 13:05] VITALS: BMI 18.8
--- NOTE | 2018-07-25 11:32 | PCM.CR.HP2 ---
CR - History & Physical - General Arrival date:: 07/25/18 Arrival time:: 10:30 Date of Referral:: 07/15/18 Date of CR Evaluation:: 07/25/18 Referring Physician: Dr. Carlos Colindres Primary Diagnosis: PCI w/ coronary stent placement - History of Present Cardiac Event Onset Date: Enter Onset Date of cardiac illnesses in Comment field below Acute Myocardial Infarction within 12 months:: Yes - NSTEMI with cardiac arrest/respiratory arrest 09/26/17 Coronary Artery Bypass Graft:: No Heart valve replacement or repair:: No PTCA or coronary stenting:: Yes - 09/26/2017 Heart or Heart-Lung Transplant:: No Heart Failure EF <35%:: No Type of Symptoms:: shortness of breath and acute chest pain, witnessed cardiac respiratory arrest. Interventions with present event:: immediate witnessed CPR and intervention via EMS; laboratory engineer emergent PCI Were there any complications?: none - Medications Home Medications: Ambulatory Orders Medication Instructions Recorded Aspirin [Aspirin, Baby] 81 mg PO DAILY@0800 tab.chew 09/29/17 atorvastatin 80 mg tablet 80 mg PO QHS #90 tab 10/24/17 clopidogrel 75 mg tablet 75 mg PO QDAY #90 tab 10/24/17 lisinopril 2.5 mg tablet 2.5 mg PO DAILY #90 tab 10/24/17 metoprolol tartrate 25 mg tablet 12.5 mg PO BID #90 tab 10/24/17 ibuprofen 800 mg tablet 800 mg PO TID PRN tab 07/15/18 - Allergies Allergies/Adverse Reactions: Allergies Penicillins Allergy (Verified 09/26/17 17:22) Unknown - Sleep Disorder Evaluation Hx of Sleep Apnea: No Do you snore loudly (louder than talking or can be heard through closed doors)?: No Do you often feel tired/ fatigued/ sleepy during daytime?: Yes - if awake to early, or get up and down at night disrupts sleep pattern. Get tired nap during daytime. Has anyone observed you stop breathing during sleep?: No History of Hypertension (for STOP score): No STOP Results: Negative Advanced Directives - Advanced Directives Power of Geopolitics Teacher: No Living Will: No Advance Directives Information Provided: Yes Advance Directives on File: No DNR Order?:: No - MOLST See MOLST form: No Past Medical History - Past Medical Illness Medical History: Past Medical History (Last Reviewed 07/15/18 @ 13:01 by Herlinda Dc) Atherosclerotic heart disease of unga coronary artery without angina pectoris (Chronic) I25.10 [facility] with PTCA/TETE of the mid and proximal RCA 09/26/2017 Respiratory arrest (Acute) R09.2 HLD (hyperlipidemia) (Chronic) E78.5 NSTEMI (non-ST elevated myocardial infarction) (Acute) I21.4 Cardiac arrest with ventricular fibrillation (Acute) I46.9, I49.01 - Past Surgical History Surgical History: Past Surgical History (Last Reviewed 07/15/18 @ 13:01 by Herlinda Dc) S/P PTCA (percutaneous transluminal coronary angioplasty) (Resolved) Onset Date: 09/26/17 Z98.61 [facility] with PTCA/TETE of the mid and proximal RCA 09/26/2017 Surgical History: noncontributory - Family History Summary Family History: Family History (Last Reviewed 07/15/18 @ 13:01 by Herlinda Dc) Father Myocardial infarction FH: CABG (coronary artery bypass surgery) Hypertension Diabetes Mother Myocardial infarction FH: CABG (coronary artery bypass surgery) HLD (hyperlipidemia) Diabetes Brother Cancer lung cancer Brother Cancer Penile cancer Brother Cancer Lung cancer Social History - Smoking History Smoking Status: Former smoker Years Smokin - plus Packs Smoked per Day: 2 Hx Smoking Cessation Date: 12/04/2017 Hx Tobacco Use: Yes Hx Smoking Exposure: No - Alcohol Use Alcohol Usage: Yes - once in a while. 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 Recreational Activities: I am able to engage in most, but not all activities Social Environment - Status Marital Status: - Current Living Arrangements Living Environment:: Spouse - Children How many children do you have?: 1 Do any of your children live nearby?: Yes - Safety Do you feel safe in your surroundings?: Yes - Assistance Do you need any assistance at home?: none Review of Systems - Review of Systems Hints: Right click = Denies (Slash). Left click = Reports ([place]) Review of Present Symptoms: Reports: Shortness of Breath with Exertion - a little short of breath with activity. Become sedendarity over the last few years with caring for parents., Dizziness/Lightheadedness - positional when standing to fast from sitting position.. Denies: Shortness of Breath at Rest, Heart Arrhythmia/Irregularities, Appetite - Normal - never had a normal appetite. - Pain Is Patient Pain Free?: Yes Pain Location: none Risk Factor Assessment - Chief Complaint Chief Complaint: Patient presents to cardiac rehab today following cardiac arrest and respiratory arrest with emergent PCI intervention back in Sep 2017. 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 - Vital Signs Temperature: 97.6 F Respiratory Rate: 14 Pulse Ox: 98 - 21% Blood Pressure: 98/58 Nailbeds:: pink - Pulse Pulse Rate: 48 Pulse Rhythm: Regular - Stress Stress: Home/Family - Diabetes Nutrition Referral for Diabetes: No - Obesity Height: 5 ft 1 in Weight:: 100 lb Weight in Pounds: 100.0 lbs Weight Source: Standing Scale Body Mass Index (BMI): 18.8 Nutritional Referral for Obesity: No - Physical Inactivity Physical Inactivity: Reg Exercise 30 min/day, Physically demanding job - Risk Stratification Risk Guidelines: Lowest Risk: Risk Factor for Smoking, Risk Factor for Dyslipidemia, Risk Factor for Diabetes, Risk Factor for Obesity - malnutrition concerns, Risk Factor for Hypertension, Risk Factor for Sedentary Lifestyle, Risk Factor for Depression - For Smoking Smoking Risk Guidelines: Smoking Low Risk: None or quit greater than 6 months ago. Smoking Moderate Risk: Smoker or quit 6 months or less ago. Smoking High Risk: Smoker - For Dyslipidemia Dyslipidemia Risk Guidelines: Low Risk: Moderate Risk: High Risk: 15-25% fat 25.1-29% fat >/= 30% fat. <7% sat fat 7-9% sat fat >9% sat fat. <150 mg chol 150-299 mg chol >/= 300 mg chol. LDL <100 LDL 100-129 LDL >/= 130. Chol/HDL ratio <5.0 Chol/HDL ratio 5.0-6.0 Chol/HDL ratio >6.0. Triglycerides <100 Triglycerides 100-149 Triglycerides >/= 150 - For Diabetes Mellitus Diabetes Risk Guidelines: Diabetes Low Risk: HgA1c <6.5% and/or FBG <120. Diabetes Moderate Risk: HgA1c 6.6-7.9% and/or FBG 120-180. Diabetes High Risk: HgA1c >/= 8% and/or FBG >180 - For Obesity/Overweight Obesity/Overweight Risk Guidelines: Obesity Low Risk: BMI <25.0. Obesity Moderate Risk: BMI 25-29.9. Obesity High Risk: BMI >/= 30.0 - For Hypertension Hypertension Risk Guidelines: Hypertension Low Risk: Systolic <120 and Diastolic <80. Hypertension Moderate Risk: Systolic 120-139 and Diastolic 80-89. Hypertension High Risk: Systolic >/= 140 and Diastolic >/= 90 - For Sedentary Lifestyle Sedentary Lifestyle Risk Guidelines: Sedentary Lifestyle Low Risk: >/= 1,500 kcal/week. Sedentary Lifestyle Moderate Risk: 700-1,499 kcal/week. Sedentary Lifestyle High Risk: < 700 kcal/week - For Depression Depression Risk Guidelines: Depression Low Risk: Not clinically depressed. Depression Moderate Risk: Mildly depressed. Depression High Risk: Clinically depressed - Family History Family History: Family History (Last Reviewed 07/15/18 @ 13:01 by Herlinda Dc) Father Myocardial infarction FH: CABG (coronary artery bypass surgery) Hypertension Diabetes Mother Myocardial infarction FH: CABG (coronary artery bypass surgery) HLD (hyperlipidemia) Diabetes Brother Cancer Brother Cancer Brother Cancer Motivation - Motivation to Participate On a scale of 1 to 10, how prepared are you to commit to attending program?: 10 What do you see as barriers to successfully being able to complete the program?: my fears What do you see as the benefits of succesfully completing the program? In other words, what do you hope to get out of participating in the program?: movement; increasing activity Are there issues you are dealing with that will interfere with completing the program?: parents care-mill helper Do you have a spouse or signficant other, family or friends who will help support you to complete the program?: yes
--- NOTE | 2018-07-25 11:36 | CR.HP_ITS ---
CR - History & Physical - General Arrival date:: 07/25/18 Arrival time:: 10:30 Date of Referral:: 07/15/18 Date of CR Evaluation:: 07/25/18 Referring Physician: Dr. Carlos Colindres Primary Diagnosis: PCI w/ coronary stent placement - History of Present Cardiac Event Onset Date: Enter Onset Date of cardiac illnesses in Comment field below Acute Myocardial Infarction within 12 months:: Yes - NSTEMI with cardiac arrest/respiratory arrest 09/26/17 Coronary Artery Bypass Graft:: No Heart valve replacement or repair:: No PTCA or coronary stenting:: Yes - 09/26/2017 Heart or Heart-Lung Transplant:: No Heart Failure EF <35%:: No Type of Symptoms:: shortness of breath and acute chest pain, witnessed cardiac respiratory arrest. 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 Were there any complications?: none - Medications Home Medications: Ambulatory Orders Medication Instructions Recorded Aspirin [Aspirin, Baby] 81 mg PO DAILY@0800 tab.chew 09/29/17 atorvastatin 80 mg tablet 80 mg PO QHS #90 tab 10/24/17 clopidogrel 75 mg tablet 75 mg PO QDAY #90 tab 10/24/17 lisinopril 2.5 mg tablet 2.5 mg PO DAILY #90 tab 10/24/17 metoprolol tartrate 25 mg tablet 12.5 mg PO BID #90 tab 10/24/17 ibuprofen 800 mg tablet 800 mg PO TID PRN tab 07/15/18 - Allergies Allergies/Adverse Reactions: Allergies Penicillins Allergy (Verified 09/26/17 17:22) Unknown - Sleep Disorder Evaluation Hx of Sleep Apnea: No Do you snore loudly (louder than talking or can be heard through closed doors)?: No Do you often feel tired/ fatigued/ sleepy during daytime?: Yes - if awake to early, or get up and down at night disrupts sleep pattern. Get tired nap during daytime. Has anyone observed you stop breathing during sleep?: No History of Hypertension (for STOP score): No STOP Results: Negative Advanced Directives - Advanced Directives Power of Closing Machine Operator: No Living Will: No Advance Directives Information Provided: Yes Advance Directives on File: No DNR Order?:: No - MOLST See MOLST form: No Past Medical History - Past Medical Illness Medical History: Past Medical History (Last Reviewed 07/15/18 @ 13:01 by Herlinda Dc) Atherosclerotic heart disease of [place] coronary artery without angina pectoris (Chronic) I25.10 [facility] with PTCA/TETE of the mid and proximal RCA 09/26/2017 Respiratory arrest (Acute) R09.2 HLD (hyperlipidemia) (Chronic) E78.5 NSTEMI (non-ST elevated myocardial infarction) (Acute) I21.4 Cardiac arrest with ventricular fibrillation (Acute) I46.9, I49.01 - Past Surgical History Surgical History: Past Surgical History (Last Reviewed 07/15/18 @ 13:01 by Herlinda Dc) S/P PTCA (percutaneous transluminal coronary angioplasty) (Resolved) Onset Da te: 09/26/17 Z98.61 [facility] with PTCA/TETE of the mid and proximal RCA 09/26/2017 Surgical History: noncontributory - Family History Summary Family History: Family History (Last Reviewed 07/15/18 @ 13:01 by Herlinda Dc) Father Myocardial infarction FH: CABG (coronary artery bypass surgery) Hypertension Diabetes Mother Myocardial infarction FH: CABG (coronary artery bypass surgery) HLD (hyperlipidemia) Diabetes Brother Cancer lung cancer Brother Cancer Penile cancer Brother Cancer Lung cancer Social History - Smoking History Smoking Status: Former smoker Years Smokin - plus Packs Smoked per Day: 2 Hx Smoking Cessation Date: 12/04/2017 Hx Tobacco Use: Yes Hx Smoking Exposure: No - Alcohol Use Alcohol Usage: Yes - once in a while. 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 Recreational Activities: I am able to engage in most, but not all activities Social Environment - Status Marital Status: - Current Living Arrangements Living Environment:: Spouse - Children How many children do you have?: 1 Do any of your children live nearby?: Yes - Safety Do you feel safe in your surroundings?: Yes - Assistance Do you need any assistance at home?: none Review of Systems - Review of Systems Hints: Right click = Denies ([place]). Left click = Reports ([place]) Review of Present Symptoms: Reports: Shortness of Breath with Exertion - a little short of breath with activity. Become sedendarity over the last few years with caring for parents., Dizziness/Lightheadedness - positional when standing to fast from sitting position.. Denies: Shortness of Breath at Rest, Heart Arrhythmia/Irregularities, Appetite - Normal - never had a normal appetite. - Pain Is Patient Pain Free?: Yes Pain Location: none Risk Factor Assessment - Chief Complaint Chief Complaint: Patient presents to cardiac rehab today following cardiac arrest and respiratory arrest with emergent PCI intervention back in Sep 2017. 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 - Vital Signs Temperature: 97.6 F Respiratory Rate: 14 Pulse Ox: 98 - 21% Blood Pressure: 98/58 Nailbeds:: pink - Pulse Pulse Rate: 48 Pulse Rhythm: Regular - Stress Stress: Home/Family - Diabetes Nutrition Referral for Diabetes: No - Obesity Height: 5 ft 1 in Weight:: 100 lb Weight in Pounds: 100.0 lbs Weight Source: Standing Scale Body Mass Index (BMI): 18.8 Nutritional Referral for Obesity: No - Physical Inactivity Physical Inactivity: Reg Exercise 30 min/day, Physically demanding job - Risk Stratification Risk Guidelines: Lowest Risk: Risk Factor for Smoking, Risk Factor for Dyslipidemia, Risk Factor for Diabetes, Risk Factor for Obesity - malnutrition concerns, Risk Factor for Hypertension, Risk Factor for Sedentary Lifestyle, Risk Factor for Depression - For Smoking Smoking Risk Guidelines: Smoking Low Risk: None or quit greater than 6 months ago. Smoking Moderate Risk: Smoker or quit 6 months or less ago. Smoking High Risk: Smoker - For Dyslipidemia Dyslipidemia Risk Guidelines: Low Risk: Moderate Risk: High Risk: 15-25% fat 25.1-29% fat >/= 30% fat. <7% sat fat 7-9% sat fat >9% sat fat. <150 mg chol 150-299 mg chol >/= 300 mg chol. LDL <100 LDL 100-129 LDL >/= 130. Chol/HDL ratio <5.0 Chol/HDL ratio 5.0-6.0 Chol/HDL ratio >6.0. Triglycerides <100 Triglycerides 100-149 Triglycerides >/= 150 - For Diabetes Mellitus Diabetes Risk Guidelines: Diabetes Low Risk: HgA1c <6.5% and/or FBG <120. Diabetes Moderate Risk: HgA1c 6.6-7.9% and/or FBG 120-180. Diabetes High Risk: HgA1c >/= 8% and/or FBG >180 - For Obesity/Overweight Obesity/Overweight Risk Guidelines: Obesity Low Risk: BMI <25.0. Obesity Moderate Risk: BMI 25-29.9. Obesity High Risk: BMI >/= 30.0 - For Hypertension Hypertension Risk Guidelines: Hypertension Low Risk: Systolic <120 and Diastolic <80. Hypertension Moderate Risk: Systolic 120-139 and Diastolic 80-89. Hypertension High Risk: Systolic >/= 140 and Diastolic >/= 90 - For Sedentary Lifestyle Sedentary Lifestyle Risk Guidelines: Sedentary Lifestyle Low Risk: >/= 1,500 kcal/week. Sedentary Lifestyle Moderate Risk: 700-1,499 kcal/week. Sedentary Lifestyle High Risk: < 700 kcal/week - For Depression Depression Risk Guidelines: Depression Low Risk: Not clinically depressed. Depression Moderate Risk: Mildly depressed. Depression High Risk: Clinically depressed - Family History Family History: Family History (Last Reviewed 07/15/18 @ 13:01 by Herlinda Dc) Father Myocardial infarction FH: CABG (coronary artery bypass surgery) Hypertension Diabetes Mother Myocardial infarction FH: CABG (coronary artery bypass surgery) HLD (hyperlipidemia) Diabetes Brother Cancer Brother Cancer Brother Cancer Motivation - Motivation to Participate On a scale of 1 to 10, how prepared are you to commit to attending program?: 10 What do you see as barriers to successfully being able to complete the program?: my fears What do you see as the benefits of succesfully completing the program? In other words, what do you hope to get out of participating in the program?: movement; increasing activity Are there issues you are dealing with that will interfere with completing the program?: parents care-mine superintendent Do you have a spouse or signficant other, family or friends who will help support you to complete the program?: yes
[2018-07-25 11:55] VITALS: BP 98/58; PULSE 48; RESP 14; TEMP 36.4; O2SAT 98; BMI 18.8
--- NOTE | 2018-07-25 12:17 | PCM.CR.ITP ---
General Information - General Information Admitting Diagnosis: Cardiac Arrest/Respiratory arrest with emergent PCI w/coronary stent placement - Education/Goals Barriers to Learning: None Cardiac Rehabilitation Goals: 1. Maintain the individual as the primary focus of care. 2. To improve the patient's quality of life. 3. Identification of cardiac risk factors and provide cardiac risk factor management. 4. Enhance the psychosocial status of the patient. 5. Reconditioning enough to allow the patient to resume customary activities. 6. Control symptoms of cardiac disease Scale for measuring improvement of personal goals: Enter appropriate number in Comments. 2 = Unchanged. 3 = Slightly Better. 4 = Moderate Improvement. 5 = Met my Goal Personal Goals: Initial Assessment: Improve management of stress and emotions, Improve energy level, Participate in home exercise program Exercise - Initial Assessment - Visit Date of Eval: 07/25/18 Session #:: 0 - start 08/07/2018 - Stages of Change Stages of Change:: Action - Exercise Prescription Mode:: Treadmill, Rower, Airdyne, NuStep Angina with exercise?: No - Hypertension Do any of the following apply?: No - Intervention Home Exercise/Activity Goal:: Sitting Time <3 hrs/day - Education Goals:: Warm-up, RPE BRADLEY Scale, S/S, Safe Exercise, Self-Monitoring - Exercise Program Goals Exercise Program Goals: Aerobic Activity >30 min Nutrition - Initial Assessment - Program Goals Nutrition Program Goals: LDL <70. Total Cholesterol <200. HDL >45. Triglycerides <150. HgbA1C <7%. BMI <25 - Visit Date of Assessment:: 07/25/18 - Stages of Change Stages of Change:: Action - Diabetes Diabetes:: No - Weight Management Height: 5 ft 1 in Weight:: 100 lb Body Fat %:: 18 - Intervention Referral to dietitian:: No Referral to Diabetic Clinic:: No Will attend diet classes:: Yes - Education Gave educational materials for:: Healthy eating Tobacco - Initial Assessment - Program Goals Tobacco Program Goals: Complete smoking cessation. Attend education classes. Improve Knowledge Test score - Stage of Change Stages of Change:: Action - Learning Barriers Learning Barriers: Ready to Learn - Family Support Do you have family support?: Yes - Tobacco Use Tobacco Use: Non-smoker Do you use smokeless tobacco?: No - Intervention Smoking Cessation Referral:: No Individual Education/Counseling:: No Education Schedule Given:: Yes - Education Gave educational material for:: Coronary artery disease, Risk factors, Sexuality, Medical compliance, Cardiac A&P, Angina signs & symptoms Psychosocial - Initial Assess - Target Goals Target Goals: Assess presence or absence of depression. Using a valid screening tool, maximizes coping skills. Positive support system - Stages of Change Stages of Change:: Action - Psychosocial Test Tool Used:: HANDS Depression Questionnaire - Intervention PS - Interventions: Yes Attend Stress Management Classes, No Referral to Mental Health, No Referral to [facility] Case Management, No Referral to Physician, No Uses Stress Management Skills - Education Gave educational materials for:: Coping techniques, Signs & symptoms of depression, Stress management, Relaxation techniques - Patient/Program Goal Preventative Medication(s):: Aspirin, Clopidogrel, Statin/lipid Patient Health Questionnaire Initial Assessment 1. Little interest or pleasure in doing things: More than half the days 2. Feeling down, depressed, or hopeless: Nearly every day 3. Trouble falling or staying asleep, or sleeping too much: Several days 4. Feeling tired or having little energy: Nearly every day 5. Poor appetite or overeating: Several days 6. Feeling bad about yourself -- or that you are a failure or have let yourself or your family down: More than half the days 7. Trouble concentrating on things, such as reading the newspaper or watching television: Several days 8. Moving or speaking so slowly that other people could have noticed. Or the opposite - being so fidgety or restless that you have been moving around a lot more than usual: Several days 9. Thoughts that you would be better off , or of hurting yourself in some way: Several days How difficult have these problems made it for you to do your work, take care of things at home, or get along with other people?: Somewhat difficult Total Score: 15 MILEY-Q SV Test - Statements CAD is a disease of the arteries in the heart: False Examples of risk factors for heart disease: True Angina is chest pain or discomfort: I Don't Know The benefits of resistance training include: True Eating more meat and dairy products: False Anti-platelet medications such as aspirin are important: True The only effective way to manage stress: False An exercise warm-up slowly increases heart rate: True Prepared, processed foods usually have high sodium: True Depression is common after a heart attack: True The statin medications lower cholesterol: True To control blood pressure, lower the amount of sodium: True If someone gets chest discomfort during walking: I Don't Know Transfats are partially hydrogenated vegetable oils: I Don't Know Sleep apnea that is not treated increases the risk: False To control cholesterol, one should become a vegetarian: False Someone knows if he/she is exercising at the right level: I Don't Know Diabetes cannot be prevented with exercise & health eating: False Stress is a large risk for heart attack: I Don't Know A diet that can help lower blood pressure is rich in: I Don't Know - Total Score Total Correct Responses: 14 Self-Efficacy Initial Assessment We would like to know how confident you are in doing certain activities. Please select your confidence level for:: Select your confidence level for the following using the scale 1-10 where 1 is not at all confident and 10 is totally confident. Your score is the average of all 6 responses. Fatigue: How confident are you that you can keep the fatigue caused by your disease from interfering with the things you want to do? Select Number: 7 Physical Discomfort or Pain: How confident are you that you can keep the physical discomfort or pain of your disease from interfering with the things you want to do? Select Number: 5 Emotional Distress: How confident are you that you can keep the emotional distress caused by your disease from interfering with the things you want to do? Select Number: 5 Other Symptoms or Health Problems: How confident are you that you can keep other symptoms or health problems from interfering with the things you want to do? Select Number: 5 Different Tasks and Activities: How confident are you that you can do the different tasks and activities needed to manage your health condition so as to reduce your need to see a doctor? Select Number: 7 Medication: How confident are you that you can do things other than just taking medication to reduce how much your illness affects your everyday life? Select Number: 9 Total Score:: 6 Nutrition Survey - Nutrition Survey Instructions Scoring Instructions: Scoring is as follows: Yes = 1 points. No = 0 point. Patient score that is >/=12 is considered to be at potential nutritional risk and could benefit from a referral to a registered dietitian. - Nutrition Survey Initial Have you lost >10 lbs over the past 2 months without trying?: No Are you following a special diet at home for diabetes, low fat, or low salt?: No Are you interested in meeting with a dietitian for help understanding your diet?: Yes Do you eat less than 3 meals a day?: Yes Do you eat fatty meats (murray, sausage, ribs, etc), fried foods, desserts, large amounts of salad dressings, margarine, butter, or cheese most days?: Yes Do you have food allergies? [Enter types in comment field]: No Do you eat in restaurants more than 3 times a week?: No Do you season food with salt, seasoning salt, or garlic salt?: Yes Do you used canned, boxed, frozen meals, or soups, seasoning packets?: Yes Total Score:: 5
== END ==
PROVIDERS: Family Provider Family Medicine; PCP Family Medicine; Referring Provider Internal Medicine Cardiovascular Disease; Visit Provider Internal Medicine Cardiovascular Disease
DX: Z95.5 Presence of coronary angioplasty implant and graft (principal)

== ENCOUNTER 2018-09-02 13:00 | Outpatient (RCR) | payer MEDICAID, SELFPAY ==
[2017-09-27 08:35] VITALS: BMI 18.0
[2018-07-25 11:55] VITALS: BMI 18.8
--- NOTE | 2018-08-23 12:51 | CR.ITP_ITS ---
General Information - General Information Admitting Diagnosis: PCI W/coronary stent - Education/Goals Cardiac Rehabilitation Goals: 1. Maintain the individual as the primary focus of care. 2. To improve the patient's quality of life. 3. Identification of cardiac risk factors and provide cardiac risk factor management. 4. Enhance the psychosocial status of the patient. 5. Reconditioning enough to allow the patient to resume customary activities. 6. Control symptoms of cardiac disease Scale for measuring improvement of personal goals: Enter appropriate number in Comments. 2 = Unchanged. 3 = Slightly Better. 4 = Moderate Improvement. 5 = Met my Goal Exercise - 30-day Assessment - Visit Date of Eval: 08/23/18 Session #:: 5 - Stages of Change Stages of Change:: Action - Exercise Prescription Mode:: Treadmill, Airdyne, NuStep Frequency (x/week): 3 Duration:: 30-45 Target Heart Rate:: 121-129 Max HR 111 - Hypertension Resting Blood Pressure:: 108/72 Peak Exercise Blood Pressure:: 132/84 - Intervention Home Exercise/Activity Goal:: Sitting Time <3 hrs/day - Education Goals:: Warm-up, RPE BRADLEY Scale, S/S, Safe Exercise, Self-Monitoring - Exercise Program Goals Exercise Program Goals: Aerobic Activity >30 min, B/P <130/80 Nutrition - 30-Day Assessment - Program Goals Nutrition Program Goals: LDL <70. Total Cholesterol <200. HDL >45. Triglycer ides <150. HgbA1C <7%. BMI <25 - Visit Date of Eval: 08/23/18 - Stages of Change Stages of Change:: Action - Diabetes Diabetes:: No - Weight Management Weight:: 46.493 kg - Intervention Referral to dietitian:: No Referral to Diabetic Clinic:: No Will attend diet classes:: Yes - Education Attended class for:: Signs & symptoms of hypoglycemia, Signs & symptoms of hyperglycemia, Relate diabetes to coronary artery disease, Healthy eating Tobacco - Initial Assessment - Program Goals Tobacco Program Goals: Complete smoking cessation. Attend education classes. Improve Knowledge Test score - Learning Barriers Learning Barriers: Ready to Learn Tobacco - 30-Day Assessment - Program Goals Tobacco Program Goals: Complete smoking cessation. Attend education classes. Improve Knowledge Test score - Stage of Change Stages of Change:: Action - Learning Barriers Learning Barriers: Participates in education - Family Support Do you have family support?: Yes - Intervention Smoking Cessation Referral:: Yes Individual Education/Counseling:: Yes - Education Attended class for:: Tobacco triggers, Coronary artery disease, Risk factors, Sexuality, Medical compliance, Cardiac A&P, Angina signs & symptoms Psychosocial - 30-Day Assess - Target Goals Target Goals: Assess presence or absence of depression. Using a valid screening tool, maximizes coping skills. Positive support system - Stages of Change Stages of Change:: Action - Psychosocial Test Tool Used:: HANDS Depression Questionnaire - Intervention PS - Interventions: Yes Attend Stress Management Classes, Yes Uses Stress Management Skills, No Referral to Mental Health, No Referral to [facility] Case Management, No Referral to Physician - Education Attended classes for:: Coping techniques, Signs & symptoms of depression, Stress management, Relaxation techniques - Assistive Devices Assistive Devices:: None Fall Risk Assessed:: Yes Patient Health Questionnaire 30-Day Re-eval Assessment 1. Little interest or pleasure in doing things: More than half the days 2. Feeling down, depressed, or hopeless: Nearly every day 3. Trouble falling or staying asleep, or sleeping too much: Several days 4. Feeling tired or having little energy: Nearly every day 5. Poor appetite or overeating: Several days 6. Feeling bad about yourself -- or that you are a failure or have let yourself or your family down: More than half the days 7. Trouble concentrating on things, such as reading the newspaper or watching television: Several days 8. Moving or speaking so slowly that other people could have noticed. Or the opposite - being so fidgety or restless that you have been moving around a lot more than usual: Several days 9. Thoughts that you would be better off , or of hurting yourself in some way: Several days How difficult have these problems made it for you to do your work, take care of things at home, or get along with other people?: Somewhat difficult Total Score: 15 Self-Efficacy 30-Day Re-eval Assessment We would like to know how confident you are in doing certain activities. Please select your confidence level for:: Select your confidence level for the following using the scale 1-10 where 1 is not at all confident and 10 is totally confident. Your score is the average of all 6 responses. Fatigue: How confident are you that you can keep the fatigue caused by your disease from interfering with the things you want to do? Select Number: 7 Physical Discomfort or Pain: How confident are you that you can keep the physical discomfort or pain of your disease from interfering with the things you want to do? Select Number: 5 Emotional Distress: How confident are you that you can keep the emotional distress caused by your disease from interfering with the things you want to do? Select Number: 5 Other Symptoms or Health Problems: How confident are you that you can keep other symptoms or health problems from interfering with the things you want to do? Select Number: 5 Different Tasks and Activities: How confident are you that you can do the different tasks and activities needed to manage your health condition so as to reduce your need to see a doctor? Select Number: 7 Medication: How confident are you that you can do things other than just taking medication to reduce how much your illness affects your everyday life? Select Number: 9 Total Score:: 6
[2018-08-23 12:54] VITALS: BP 108/72; BP 132/84
== END 2018-09-05 23:59 ==
LOC: CR 13:00
PROVIDERS: Family Provider Family Medicine; PCP Family Medicine; Referring Provider Internal Medicine Cardiovascular Disease; Visit Provider Internal Medicine Cardiovascular Disease
DX: I21.4 Non-ST elevation (NSTEMI) myocardial infarction (principal); I46.9 Cardiac arrest, cause unspecified; I49.01 Ventricular fibrillation; I25.10 Atherosclerotic heart disease of native coronary artery without angina pectoris; Z95.5 Presence of coronary angioplasty implant and graft
CPT/HCPCS: 93798

== ENCOUNTER 2018-09-16 14:15 | Outpatient (RCR) | payer MEDICAID, SELFPAY ==
[2017-09-27 08:35] VITALS: BMI 18.0
[2018-07-25 11:55] VITALS: BMI 18.8
== END 2018-10-03 23:59 ==
LOC: NS 14:15
PROVIDERS: Family Provider Family Medicine; PCP Family Medicine; Visit Provider Internal Medicine Cardiovascular Disease
DX: R63.6 Underweight (principal); Z68.1 Body mass index [BMI] 19.9 or less, adult; I25.10 Atherosclerotic heart disease of native coronary artery without angina pectoris; I46.9 Cardiac arrest, cause unspecified; E78.5 Hyperlipidemia, unspecified
CPT/HCPCS: 93798; 97802

== ENCOUNTER 2018-10-02 13:00 | Outpatient (RCR) | payer MEDICAID, SELFPAY ==
[2017-09-27 08:35] VITALS: BMI 18.0
[2018-07-25 11:55] VITALS: BMI 18.8
[2018-09-06 00:46] VITALS: BP 108/72; BP 132/84
--- NOTE | 2018-09-25 08:25 | PCM.CR.ITP ---
General Information - General Information Admitting Diagnosis: PCI with stenting - Education/Goals Barriers to Learning: None Cardiac Rehabilitation Goals: 1. Maintain the individual as the primary focus of care. 2. To improve the patient's quality of life. 3. Identification of cardiac risk factors and provide cardiac risk factor management. 4. Enhance the psychosocial status of the patient. 5. Reconditioning enough to allow the patient to resume customary activities. 6. Control symptoms of cardiac disease Scale for measuring improvement of personal goals: Enter appropriate number in Comments. 2 = Unchanged. 3 = Slightly Better. 4 = Moderate Improvement. 5 = Met my Goal Exercise - 60-Day Assessment - Visit Date of Eval: 09/25/18 Session #:: 16 - Stages of Change Stages of Change:: Action - Exercise Prescription Mode:: Treadmill, Airdyne, NuStep Frequency (x/week): 3 Duration:: 30-45 METs: 6 Target Heart Rate:: 121-129 Max HR 131 - Hypertension Resting Blood Pressure:: 140/70 Peak Exercise Blood Pressure:: 168/98 - Education Goals:: Warm-up, RPE BRADLEY Scale, S/S, Safe Exercise, Self-Monitoring - Exercise Program Goals Exercise Program Goals: Aerobic Activity >30 min, B/P <130/80 Nutrition - 60-Day Assessment - Program Goals Nutrition Program Goals: LDL <70. Total Cholesterol <200. HDL >45. Triglycerides <150. HgbA1C <7%. BMI <25 - Visit Date of Eval: 09/25/18 - Stages of Change Stages of Change:: Action - Intervention Referral to dietitian:: No Referral to Diabetic Clinic:: No Will attend diet classes:: Yes - Education Attended class for:: Signs & symptoms of hypoglycemia, Signs & symptoms of hyperglycemia, Relate diabetes to coronary artery disease, Healthy eating Tobacco - Initial Assessment - Program Goals Tobacco Program Goals: Complete smoking cessation. Attend education classes. Improve Knowledge Test score - Learning Barriers Learning Barriers: Ready to Learn Tobacco - 60-Day Assessment - Program Goals Tobacco Program Goals: Complete smoking cessation. Attend education classes. Improve Knowledge Test score - Stage of Change Stages of Change:: Action - Learning Barriers Learning Barriers: Participates in education - Family Support Do you have family support?: Yes - Intervention Smoking Cessation Referral:: No Individual Education/Counseling:: No Education Schedule Given:: Yes - Education Attended class for:: Tobacco triggers, Coronary artery disease, Risk factors, Sexuality, Medical compliance, Cardiac A&P, Angina signs & symptoms Psychosocial - Initial Assess - Target Goals Target Goals: Assess presence or absence of depression. Using a valid screening tool, maximizes coping skills. Positive support system - Psychosocial Test Tool Used:: HANDS Depression Questionnaire - Assistive Devices Fall Risk Assessed:: Yes Psychosocial - 60-Day Assess - Target Goals Target Goals: Assess presence or absence of depression. Using a valid screening tool, maximizes coping skills. Positive support system - Stages of Change Stages of Change:: Action - Psychosocial Test Tool Used:: HANDS Depression Questionnaire - Intervention PS - Interventions: Yes Attend Stress Management Classes, Yes Uses Stress Management Skills, No Referral to Mental Health, No Referral to [facility] Case Management, No Referral to Physician - Education Attended classes for:: Coping techniques, Signs & symptoms of depression, Stress management, Relaxation techniques - Assistive Devices Assistive Devices:: None Fall Risk Assessed:: Yes Patient Health Questionnaire 60-Day Re-eval Assessment 1. Little interest or pleasure in doing things: Nearly every day 2. Feeling down, depressed, or hopeless: Several days 3. Trouble falling or staying asleep, or sleeping too much: Nearly every day 4. Feeling tired or having little energy: Several days 5. Poor appetite or overeating: Several days 6. Feeling bad about yourself -- or that you are a failure or have let yourself or your family down: More than half the days 7. Trouble concentrating on things, such as reading the newspaper or watching television: Several days 8. Moving or speaking so slowly that other people could have noticed. Or the opposite - being so fidgety or restless that you have been moving around a lot more than usual: Several days 9. Thoughts that you would be better off , or of hurting yourself in some way: Several days How difficult have these problems made it for you to do your work, take care of things at home, or get along with other people?: Somewhat difficult Total Score: 14 Self-Efficacy 60-Day Re-eval Assessment We would like to know how confident you are in doing certain activities. Please select your confidence level for:: Select your confidence level for the following using the scale 1-10 where 1 is not at all confident and 10 is totally confident. Your score is the average of all 6 responses. Fatigue: How confident are you that you can keep the fatigue caused by your disease from interfering with the things you want to do? Select Number: 7 Physical Discomfort or Pain: How confident are you that you can keep the physical discomfort or pain of your disease from interfering with the things you want to do? Select Number: 5 Emotional Distress: How confident are you that you can keep the emotional distress caused by your disease from interfering with the things you want to do? Select Number: 5 Other Symptoms or Health Problems: How confident are you that you can keep other symptoms or health problems from interfering with the things you want to do? Select Number: 5 Different Tasks and Activities: How confident are you that you can do the different tasks and activities needed to manage your health condition so as to reduce your need to see a doctor? Select Number: 7 Medication: How confident are you that you can do things other than just taking medication to reduce how much your illness affects your everyday life? Select Number: 9 Total Score:: 6
[2018-09-25 08:34] VITALS: BP 140/70; BP 168/98
== END 2018-10-03 23:59 ==
LOC: CR 13:00
PROVIDERS: Family Provider Family Medicine; PCP Family Medicine; Referring Provider Internal Medicine Cardiovascular Disease; Visit Provider Internal Medicine Cardiovascular Disease
DX: I21.4 Non-ST elevation (NSTEMI) myocardial infarction (principal); I46.9 Cardiac arrest, cause unspecified; I49.01 Ventricular fibrillation; I25.10 Atherosclerotic heart disease of native coronary artery without angina pectoris; Z95.5 Presence of coronary angioplasty implant and graft
CPT/HCPCS: 93798

== ENCOUNTER 2018-10-09 14:18 | Outpatient (RCR) | payer MEDICAID, SELFPAY ==
[2017-09-27 08:35] VITALS: BMI 18.0
[2018-07-25 11:55] VITALS: BMI 18.8
== END 2018-11-03 23:59 ==
LOC: NS 14:18
PROVIDERS: Family Provider Family Medicine; PCP Family Medicine; Visit Provider Internal Medicine Cardiovascular Disease
DX: R63.6 Underweight (principal); Z68.1 Body mass index [BMI] 19.9 or less, adult; I25.10 Atherosclerotic heart disease of native coronary artery without angina pectoris; I46.9 Cardiac arrest, cause unspecified; E78.5 Hyperlipidemia, unspecified; Z71.3 Dietary counseling and surveillance; I21.4 Non-ST elevation (NSTEMI) myocardial infarction; I49.01 Ventricular fibrillation; Z95.5 Presence of coronary angioplasty implant and graft
CPT/HCPCS: 93798; 97803

== ENCOUNTER 2018-10-23 13:00 | Outpatient (RCR) | payer MEDICAID, SELFPAY ==
[2017-09-27 08:35] VITALS: BMI 18.0
[2018-07-25 11:55] VITALS: BMI 18.8
[2018-10-04 00:41] VITALS: BP 140/70; BP 168/98
[2018-10-23 13:25] VITALS: BP 128/70; BP 172/68
--- NOTE | 2018-10-23 13:25 | CR.ITP_ITS ---
Exercise - 60-Day Assessment - Visit Date of Eval: 10/23/18 Session #:: 29 - Patient was on vacation from 10/11/18-10/23/18 - Stages of Change Stages of Change:: Action - Physician Prescribed Exercise Modalities: Treadmill, Airdyne, NuStep Frequency (days/week): 3 Duration (Minutes):: 30-45 Intensity: 60-80% age predicted maximum heart rate reserve METs - Progression: 0.5-1.0 MET, RPE 11-14 WEEK: 6.5 Target Heart Rate:: 121-129 - Hypertension Resting Blood Pressure:: 128/70 Peak Exercise Blood Pressure:: 172/68 Medication Changes:: No - Intervention Home Exercise/Activity Goal:: Moderate Exercise 30 min/day x 5 days/wk - Education Goals:: Warm-up, RPE BRADLEY Scale, S/S, Safe Exercise, Self-Monitoring - Exercise Program Goals Exercise Program Goals: Aerobic Activity >30 min Nutrition - 60-Day Assessment - Program Goals Nutrition Program Goals: LDL <70. Total Cholesterol <200. HDL >45. Triglycerides <150. HgbA1C <7%. BMI <25 - Visit Date of Eval: 10/23/18 - Stages of Change Stages of Change:: Action - Lipids Has the patient seen the dietitian?: No - Diabetes Diabetes:: No - Weight Management Weight:: 104 lb - Intervention Referral to dietitian:: No Referral to Diabetic Clinic:: No Will attend diet classes:: Yes - Education Attended class for:: Healthy eating Tobacco - Initial Assessment - Program Goals Tobacco Program Goals: Complete smoking cessation. Attend education classes. Improve Knowledge Test score - Learning Barriers Learning Barriers: Ready to Learn Tobacco - 60-Day Assessment - Program Goals Tobacco Program Goals: Complete smoking cessation. Attend education classes. Improve Knowledge Test score - Stage of Change Stages of Change:: Action - Learning Barriers Learning Barriers: Participates in education, Change in behavior - Family Support Do you have family support?: Yes - Tobacco Use Tobacco Use: Non-smoker Do you use smokeless tobacco?: No - Intervention Smoking Cessation Referral:: No Individual Education/Counseling:: No Education Schedule Given:: Yes - Education Attended class for:: Coronary artery disease, Risk factors, Sexuality, Medical compliance, Cardiac A&P, Angina signs & symptoms Psychosocial - Initial Assess - Target Goals Target Goals: Assess presence or absence of depression. Using a valid screening tool, maximizes coping skills. Positive support system - Psychosocial Test Tool Used:: HANDS Depression Questionnaire - Assistive Devices Fall Risk Assessed:: Yes Psychosocial - 60-Day Assess - Target Goals Target Goals: Assess presence or absence of depression. Using a valid screening tool, maximizes coping skills. Positive support system - Stages of Change Stages of Change:: Action - Psychosocial Test Tool Used:: HANDS Depression Questionnaire - Intervention PS - Interventions: Yes Attend Stress Management Classes, Yes Uses Stress Management Skills, No Referral to Mental Health, No Referral to [facility] Case Manag ement, No Referral to Physician - Education Attended classes for:: Coping techniques, Signs & symptoms of depression, Stress management, Relaxation techniques - Patient/Program Goal Preventative Medication(s):: Aspirin, Clopidogrel, Beta alan, Statin/lipid - Assistive Devices Assistive Devices:: None Fall Risk Assessed:: Yes Patient Health Questionnaire 60-Day Re-eval Assessment 1. Little interest or pleasure in doing things: Several days 2. Feeling down, depressed, or hopeless: Not at all 3. Trouble falling or staying asleep, or sleeping too much: Several days 4. Feeling tired or having little energy: Not at all 5. Poor appetite or overeating: Not at all 6. Feeling bad about yourself -- or that you are a failure or have let yourself or your family down: Several days 7. Trouble concentrating on things, such as reading the newspaper or watching television: Not at all 8. Moving or speaking so slowly that other people could have noticed. Or the opposite - being so fidgety or restless that you have been moving around a lot more than usual: Not at all 9. Thoughts that you would be better off , or of hurting yourself in some way: Not at all How difficult have these problems made it for you to do your work, take care of things at home, or get along with other people?: Somewhat difficult Total Score: 3 Self-Efficacy 60-Day Re-eval Assessment We would like to know how confident you are in doing certain activities. Please select your confidence level for:: Select your confidence level for the following using the scale 1-10 where 1 is not at all confident and 10 is totally confident. Your score is the average of all 6 responses. Fatigue: How confident are you that you can keep the fatigue caused by your disease from interfering with the things you want to do? Select Number: 8 Physical Discomfort or Pain: How confident are you that you can keep the physical discomfort or pain of your disease from interfering with the things you want to do? Select Number: 7 Emotional Distress: How confident are you that you can keep the emotional distress caused by your disease from interfering with the things you want to do? Select Number: 7 Other Symptoms or Health Problems: How confident are you that you can keep other symptoms or health problems from interfering with the things you want to do? Select Number: 7 Different Tasks and Activities: How confident are you that you can do the different tasks and activities needed to manage your health condition so as to reduce your need to see a doctor? Select Number: 9 Medication: How confident are you that you can do things other than just taking medication to reduce how much your illness affects your everyday life? Select Number: 10 Total Score:: 8
== END 2018-11-03 23:59 ==
LOC: CR 13:00
PROVIDERS: Family Provider Family Medicine; PCP Family Medicine; Referring Provider Internal Medicine Cardiovascular Disease; Visit Provider Internal Medicine Cardiovascular Disease
DX: I21.4 Non-ST elevation (NSTEMI) myocardial infarction (principal); I46.9 Cardiac arrest, cause unspecified; I49.01 Ventricular fibrillation; I25.10 Atherosclerotic heart disease of native coronary artery without angina pectoris; Z95.5 Presence of coronary angioplasty implant and graft
CPT/HCPCS: 93798

== ENCOUNTER → 2018-10-25 12:51 | Outpatient (CLI) | payer MEDICAID, SELFPAY ==
[2017-09-27 08:35] VITALS: BMI 18.0
[2018-07-25 11:55] VITALS: BMI 18.8
[2018-10-25 13:37] LABS: Absolute Lymphocyte Count 1.25 X10^3/ul (0.83-4.51); Absolute Neutrophil Count 8.3 X10^3/uL (2.0-7.7); Basophil# 0.02 X10^3/uL; Basophil% 0.2 % (0-1); Eosinophil# 0.03 X10^3/uL; Eosinophils% 0.3 % (0-5); Hematocrit 40.1 % (37-47); Hemoglobin 13.2 g/dl (12.0-15.0); Lymphocyte # 1.25 X10^3/ul (4.0); Lymphocyte % 12.7 % (19-41); Mean Corp Hgb Conc 32.9 g/gl (32-36); Mean Corpuscular Hgb 32.4 pg (27.0-32.0); Mean Corpuscular Volume 98.3 fL (81-99); Mean Platelet Vol. 8.2 fl (6.2-12.0); Monocyte# 0.22 X10^3/uL; Monocyte% 2.2 % (0-10); Neutrophil # 8.33 X10^3/uL (2.7-7.7); Neutrophil % 84.3 % (47-70); POSITIVE COUNT NO; POSITIVE DIFFERENTIAL NO; POSITIVE MORPHOLOGY NO; Platelet Count 411 K/mm3 (150-450); RBC Distribution Width CV 13.4 % (11.6-14.6); RBC Distribution Width SD 47.4 fl (35.1-43.9); Red Blood Count 4.08 M/mm3 (4.2-5.4); White Blood Count 9.9 K/mm3 (4.4-11.0)
[2018-10-25 13:46] LABS: Prothrombin Time (Protime)PT. 12.8 SECONDS (11.7-14.9)
[2018-10-25 14:03] LABS: ALB/GLOB Ratio 0.9 RATIO (0.9-2.4); AST(SGOT) 21 U/L (15-37); Alanine Aminotransfer ALT/SGPT 24 U/L (13-56); Albumin, Serum 3.8 g/dL (3.2-5.0); Alkaline Phosphatase 82 U/L (45-117); Anion Gap 8 (5-15); BUN 12 mg/dL (7-18); BUN/Creat Ratio 14.5 RATIO (10-20); Calcium,Total 9.3 mg/dL (8.5-10.1); Chloride 102 mmol/L (98-107); Creatinine, Serum 0.83 mg/dL (0.55-1.02); EST Glomerular Filtration Rate 75 mL/min (>60); Est Glom Filt Rate - Afr Amer 91 mL/min (>60); Globulin 4.1 g/dL (2.2-4.2); Glucose 95 mg/dL (74-106); Potassium 3.7 mmol/L (3.5-5.1); Protein, Total 7.9 g/dL (6.4-8.2); Sodium Level 136 mmol/L (136-145)
== END ==
PROVIDERS: Family Provider Family Medicine; PCP Family Medicine; Referring Provider Family Medicine; Visit Provider Family Medicine
DX: T14.8XXA Other injury of unspecified body region, initial encounter (principal); Z51.81 Encounter for therapeutic drug level monitoring
CPT/HCPCS: 36415; 80053; 85025; 85610

== ENCOUNTER 2018-11-04 15:23 | Outpatient (RCR) | payer MEDICAID, SELFPAY ==
[2017-09-27 08:35] VITALS: BMI 18.0
[2018-07-25 11:55] VITALS: BMI 18.8
== END 2018-12-03 23:59 ==
LOC: NS 15:23
PROVIDERS: Family Provider Family Medicine; PCP Family Medicine; Visit Provider Internal Medicine Cardiovascular Disease
DX: R63.6 Underweight (principal); Z68.1 Body mass index [BMI] 19.9 or less, adult; I25.10 Atherosclerotic heart disease of native coronary artery without angina pectoris; I46.9 Cardiac arrest, cause unspecified; E78.5 Hyperlipidemia, unspecified; Z71.3 Dietary counseling and surveillance
CPT/HCPCS: 93798; 97803

== ENCOUNTER 2018-11-18 13:00 | Outpatient (RCR) | payer MEDICAID, SELFPAY ==
[2017-09-27 08:35] VITALS: BMI 18.0
[2018-07-25 11:55] VITALS: BMI 18.8
[2018-11-04 00:38] VITALS: BP 128/70; BP 172/68
--- NOTE | 2018-11-22 07:22 | PCM.CR.ITP ---
General Information - General Information Admitting Diagnosis: PCI with coronary stent - Education/Goals Cardiac Rehabilitation Goals: 1. Maintain the individual as the primary focus of care. 2. To improve the patient's quality of life. 3. Identification of cardiac risk factors and provide cardiac risk factor management. 4. Enhance the psychosocial status of the patient. 5. Reconditioning enough to allow the patient to resume customary activities. 6. Control symptoms of cardiac disease Scale for measuring improvement of personal goals: Enter appropriate number in Comments. 2 = Unchanged. 3 = Slightly Better. 4 = Moderate Improvement. 5 = Met my Goal Exercise - Final/Discharge - Visit Date of Eval: 11/22/18 - discharge Session #:: 36 - Stages of Change Stages of Change:: Action - Physician Prescribed Exercise Modalities: Treadmill, NuStep, SciFit Frequency (days/week): 3 Duration (Minutes):: 30-45 Intensity: 60-80% age predicted maximum heart rate reserve METs - Progression: 0.5-1.0 MET, RPE 11-14 WEEK: 7 Target Heart Rate:: 121-129 Max HR 122 - Hypertension Do any of the following apply?: Yes Resting Blood Pressure:: 120/70 Peak Exercise Blood Pressure:: 150/70 - Intervention Home Exercise/Activity Goal:: Moderate Exercise 30 min/day x 5 days/wk - Education Goal Progress: Goal Met - Exercise Program Goals Exercise Program Goals: Aerobic Activity >30 min, B/P <130/80 Nutrition - Final Assessment - Program Goals Nutrition Program Goals: LDL <70. Total Cholesterol <200. HDL >45. Triglycerides <150. HgbA1C <7%. BMI <25 - Visit Date of Eval: 11/22/18 - Stages of Change Stages of Change:: Action - Diabetes Diabetes:: No - Weight Management Weight:: 47.4 kg - Intervention Referral to dietitian:: No Referral to Diabetic Clinic:: No Will attend diet classes:: Yes - Education Education Goal Reached?: Yes Tobacco - Initial Assessment - Program Goals Tobacco Program Goals: Complete smoking cessation. Attend education classes. Improve Knowledge Test score - Learning Barriers Learning Barriers: Ready to Learn Tobacco - Final Assessment - Program Goals Tobacco Program Goals: Complete smoking cessation. Attend education classes. Improve Knowledge Test score - Stage of Change Stages of Change:: Action - Intervention Smoking Cessation Referral:: No Individual Education/Counseling:: No Education Schedule Given:: Yes - Education Education Goal Reached?: Yes Psychosocial - Initial Assess - Target Goals Target Goals: Assess presence or absence of depression. Using a valid screening tool, maximizes coping skills. Positive support system - Psychosocial Test Tool Used:: HANDS Depression Questionnaire - Assistive Devices Fall Risk Assessed:: Yes Psychosocial - Final Assessmen - Target Goals Target Goals: Assess presence or absence of depression. Using a valid screening tool, maximizes coping skills. Positive support system - Stages of Change Stages of Change:: Action - Psychosocial Test Tool Used:: HANDS Depression Questionnaire - Intervention PS - Interventions: Yes Attend Stress Management Classes, Yes Uses Stress Management Skills, No Referral to Mental Health, No Referral to [facility] Case Management, No Referral to Physician - Education Education Goal Reached?: Yes - Assistive Devices Assistive Devices:: None Fall Risk Assessed:: Yes Patient Health Questionnaire Discharge Assessment 1. Little interest or pleasure in doing things: Several days 2. Feeling down, depressed, or hopeless: Several days 3. Trouble falling or staying asleep, or sleeping too much: Several days 4. Feeling tired or having little energy: Several days 5. Poor appetite or overeating: Not at all 6. Feeling bad about yourself -- or that you are a failure or have let yourself or your family down: Several days 7. Trouble concentrating on things, such as reading the newspaper or watching television: Several days 8. Moving or speaking so slowly that other people could have noticed. Or the opposite - being so fidgety or restless that you have been moving around a lot more than usual: Several days 9. Thoughts that you would be better off , or of hurting yourself in some way: Not at all How difficult have these problems made it for you to do your work, take care of things at home, or get along with other people?: Not difficult at all Total Score: 7 MILEY-Q SV Test - Statements CAD is a disease of the arteries in the heart: False Examples of risk factors for heart disease: True Angina is chest pain or discomfort: False The benefits of resistance training include: True Eating more meat and dairy products: False Anti-platelet medications such as aspirin are important: True The only effective way to manage stress: False An exercise warm-up slowly increases heart rate: True Prepared, processed foods usually have high sodium: True Depression is common after a heart attack: True The statin medications lower cholesterol: True To control blood pressure, lower the amount of sodium: True If someone gets chest discomfort during walking: False Transfats are partially hydrogenated vegetable oils: True Sleep apnea that is not treated increases the risk: I Don't Know To control cholesterol, one should become a vegetarian: False Someone knows if he/she is exercising at the right level: True Diabetes cannot be prevented with exercise & health eating: False Stress is a large risk for heart attack: True A diet that can help lower blood pressure is rich in: True - Total Score Total Correct Responses: 18 Self-Efficacy Discharge Assessment We would like to know how confident you are in doing certain activities. Please select your confidence level for:: Select your confidence level for the following using the scale 1-10 where 1 is not at all confident and 10 is totally confident. Your score is the average of all 6 responses. Fatigue: How confident are you that you can keep the fatigue caused by your disease from interfering with the things you want to do? Select Number: 10 Physical Discomfort or Pain: How confident are you that you can keep the physical discomfort or pain of your disease from interfering with the things you want to do? Select Number: 10 Emotional Distress: How confident are you that you can keep the emotional distress caused by your disease from interfering with the things you want to do? Select Number: 10 Other Symptoms or Health Problems: How confident are you that you can keep other symptoms or health problems from interfering with the things you want to do? Select Number: 9 Different Tasks and Activities: How confident are you that you can do the different tasks and activities needed to manage your health condition so as to reduce your need to see a doctor? Select Number: 9 Medication: How confident are you that you can do things other than just taking medication to reduce how much your illness affects your everyday life? Select Number: 9 Total Score:: 9 Nutrition Survey - Nutrition Survey Instructions Scoring Instructions: Scoring is as follows: Yes = 1 points. No = 0 point. Patient score that is >/=12 is considered to be at potential nutritional risk and could benefit from a referral to a registered dietitian. - Nutrition Survey Discharge Have you lost >10 lbs over the past 2 months without trying?: No Are you following a special diet at home for diabetes, low fat, or low salt?: No Are you interested in meeting with a dietitian for help understanding your diet?: No Do you eat less than 3 meals a day?: No Do you eat fatty meats (murray, sausage, ribs, etc), fried foods, desserts, large amounts of salad dressings, margarine, butter, or cheese most days?: No Do you have food allergies? [Enter types in comment field]: No Do you eat in restaurants more than 3 times a week?: No Do you season food with salt, seasoning salt, or garlic salt?: No Do you used canned, boxed, frozen meals, or soups, seasoning packets?: Yes Total Score:: 1
[2018-11-22 07:27] VITALS: BP 120/70; BP 150/70
== END 2018-12-03 23:59 ==
LOC: CR 13:00
PROVIDERS: Family Provider Family Medicine; PCP Family Medicine; Referring Provider Internal Medicine Cardiovascular Disease; Visit Provider Internal Medicine Cardiovascular Disease
DX: I21.4 Non-ST elevation (NSTEMI) myocardial infarction (principal); I46.9 Cardiac arrest, cause unspecified; I49.01 Ventricular fibrillation; I25.10 Atherosclerotic heart disease of native coronary artery without angina pectoris; Z95.5 Presence of coronary angioplasty implant and graft
CPT/HCPCS: 93798

== ENCOUNTER 2018-12-04 12:57 | Outpatient (RCR) | payer MEDICAID, SELFPAY ==
[2017-09-27 08:35] VITALS: BMI 18.0
[2018-07-25 11:55] VITALS: BMI 18.8
== END 2018-12-04 23:59 | disposition home or self-care (01) ==
LOC: DC 12:57
PROVIDERS: Family Provider Family Medicine; PCP Family Medicine; Visit Provider Internal Medicine Cardiovascular Disease
DX: R63.6 Underweight (principal); Z68.1 Body mass index [BMI] 19.9 or less, adult; I25.10 Atherosclerotic heart disease of native coronary artery without angina pectoris; I46.9 Cardiac arrest, cause unspecified; E78.5 Hyperlipidemia, unspecified; Z71.3 Dietary counseling and surveillance
CPT/HCPCS: 97803

== ENCOUNTER → 2018-12-09 | Outpatient (CLI) | payer MEDICAID, SELFPAY ==
[2017-09-27 08:35] VITALS: BMI 18.0
[2018-07-25 11:55] VITALS: BMI 18.8
[2018-12-09 18:22] LABS: AST(SGOT) 23 U/L (15-37); Alanine Aminotransfer ALT/SGPT 37 U/L (13-56); Albumin, Serum 4.2 g/dL (3.2-5.0); Alkaline Phosphatase 81 U/L (45-117); Cholesterol 118 mg/dL (200); Globulin 3.4 g/dL (2.2-4.2); High Density Lipoprotein 70 mg/dL; Protein, Total 7.6 g/dL (6.4-8.2); Triglycerides 135 mg/dL; Very Low Density Lipoprotein 27 mg/dL (5-40)
== END | disposition home or self-care (01) ==
LOC: BFHLAB 14:25
PROVIDERS: Nurse Practitioner Family; Family Provider Family Medicine; PCP Family Medicine; Visit Provider Family Medicine
DX: E78.5 Hyperlipidemia, unspecified (principal); I25.10 Atherosclerotic heart disease of native coronary artery without angina pectoris
CPT/HCPCS: 36415; 80061; 80076

== ENCOUNTER → 2019-01-13 | Outpatient (CLI) | payer MEDICAID, SELFPAY ==
[2017-09-27 08:35] VITALS: BMI 18.0
[2018-12-18 13:23] VITALS: BMI 18.8
--- NOTE | 2019-01-13 13:21 | CT_ITS ---
STUDY: LOW DOSE CT LUNG CANCER SCREENING REASON FOR EXAM: Female, 58 years old. History of 41 pack year smoker. Patient has quit 1 year ago. RADIATION DOSAGE (If Supplied By Facility): CTDIvol = ( 2.01 ) mGy, DLP = ( 66.70 ) mGycm TECHNIQUE: No contrast was administered. Low dose technique was utilized (average mAS-38 and kVp 120). 1.25 mm axial source images with a slice interval of 1.25-mm were reconstructed in lung windows. 2.5 mm axial source images with a slice interval of 2.5-mm were reconstructed in lung windows. 5.0 mm axial source images with a slice interval of 5.0-mm were reconstructed in soft tissue windows. Nodule measured using lung windows on PACS and/or independent workstation with automated measurement of minimum and maximum diameter. Nodule measurement reported as average diameter rounded to the nearest whole number. Growth is defined as an increase ins size of greater than 1.5 mm. COMPARISON: None. NODULES: No suspicious nodules are seen. 2 mm calcified granuloma in the posterior aspect of the right upper lobe. Emphysema: Emphysematous changes worse in the upper lobes. Findings suggestive of scarring at the lung apices as well as mild scarring at the lung bases slightly more prominent on the left side. Aorta: Scattered calcific plaques. Coronary arteries: Coronary artery calcification. Heart: Minimal degree of pericardial thickening. Pulmonary artery: Prominence of the pulmonary arteries suggestive of a pulmonary hypertension. Mediastinal nodes: Borderline precarinal lymph nodes. Other chest and abdominal findings: CT/Low Dose CT Lung Screening IMPRESSION: Lung-RADS category 2 - Continue annual screening with LDCT in 12 months. IMPORTANT NOTES FOR USE: ACR Lung-RADS Version 1.0 Assessment Categories Release Date: December 01, 2013 Category: Coded 0-4 bases on nodule(s) with highest degree of suspicion. Negative screen is defined as categories 1 and 2; a positive screen is defined as categories 3 and 4. Category 3 and 4A nodules that are unchanged on interval CT should be coded as category 2, and individuals returned to screening in 12 months. Category 4X: Category 3 or 4 nodules with additional imaging findings that increase the suspicion of lung cancer, such as spiculation, GGN that doubles in size in 1 year, enlarged lymph notes, etc. Category Modifiers: S (significant finding unrelated to lung cancer) and C (prior history of treated lung cancer) may be added to the 0-4 Lung-RADS Electronically Signed: Krzysztof Guajardo, at 11:00 EDT , Service support ,
== END | disposition home or self-care (01) ==
LOC: CT 13:18
PROVIDERS: Family Provider Family Medicine; PCP Family Medicine; Referring Provider Family Medicine; Visit Provider Family Medicine
DX: Z12.2 Encounter for screening for malignant neoplasm of respiratory organs (principal); Z87.891 Personal history of nicotine dependence
CPT/HCPCS: G0297

== ENCOUNTER 2019-01-15 06:57 | Day surgery (SDC) | payer MEDICAID, SELFPAY ==
[2017-09-27 08:35] VITALS: BMI 18.0
--- NOTE | 2018-12-18 03:08 | HP_ITS ---
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: No Is patient in pain?: No Allergies Penicillins Allergy (Verified 12/18/18 13:21) Unknown Medications Aspirin [Aspirin, Baby] 81 mg PO DAILY@0800 tab.chew 09/29/17 [Rx Confirmed 12/18/18] ibuprofen 800 mg tablet 800 mg PO TID PRN tab 07/15/18 [History Confirmed 12/18/18] atorvastatin 80 mg tablet 80 mg PO QHS #90 tab 10/09/18 [Rx Confirmed 12/18/18] clopidogrel 75 mg tablet 75 mg PO QDAY #90 tab 10/09/18 [Rx Confirmed 12/18/18] metoprolol tartrate 25 mg tablet 12.5 mg PO BID #90 tab 10/09/18 [Rx Confirmed 12/18/18] albuterol sulfate HFA 90 mcg/actuation aerosol inhaler 2 puff INHALATION Q1H PRN g 12/18/18 [History Confirmed 12/18/18] sertraline 50 mg tablet 50 mg PO DAILY 12/18/18 [History Confirmed 12/18/18] PFSH Medical History Atherosclerotic heart disease of [place] coronary artery without angina pectoris (Chronic) Rib pain (Acute) Nicotine dependence, cigarettes, uncomplicated (Chronic) Respiratory arrest (Acute) HLD (hyperlipidemia) (Chronic) NSTEMI (non-ST elevated myocardial infarction) (Acute) Cardiac arrest with ventricular fibrillation (Acute) Cardiac arrest (Acute) Surgical History Hx of wisdom tooth extraction (Acute) S/P excision of lipoma (Acute) Hx of exploratory laparotomy (Acute) Hx of non-cataract eye surgery (Acute) S/P PTCA (percutaneous transluminal coronary angioplasty) (Resolved 09/26/17) Family History Father Myocardial infarction FH: CABG (coronary artery bypass surgery) Hypertension Diabetes Mother Myocardial infarction FH: CABG (coronary artery bypass surgery) HLD (hyperlipidemia) Diabetes Brother Cancer lung cancer Brother Cancer Penile cancer Brother Cancer Lung cancer Grandmother Colon cancer Social History Smoking Status: Former smoker quit date: 12/03/17 alcohol intake: current alcohol intake frequency: holidays/special occasions only Alcohol type: hard liquor substance use type: marijuana caffeine: Yes Type: carbonated beverages, coffee what type of physical activity do you participate in: none seatbelt use: always do you feel safe at home: Yes HPI HPI HPI: INDIA GARCIA, is a 58 F who presents to the office today for HPI HPI Surgical H&P: Yes HPI: INDIA GARCIA, is a 58 F who presents to the office today for screening colonoscopy. Patient did have an UT and 2 stents placed in September 2017 is currently on aspirin and Plavix. Patient states she has bowel movements daily denies any blood. Patient's maternal grandmother had colon cancer in her 70s patient believes. Patient denies any abdominal pain, nausea or vomiting or reflux. ROS General General: Yes fatigue; no weight change or colon cancer Gastro Gastrointestinal: No abdominal pain, No nausea or vomiting, No diarrhea, No constipation, No blood in stool, No acid reflux, Yes hemorrhoids, No ulcers, No gallbladder problem, No black,tarry stools Exam Const General: cooperative, comfortable, no acute distress Resp Effort & Inspection: normal respiratory effort Cardio Rate: regular rate GI Inspection: non-distended Palpation: soft, no guarding, nontender Assessment & Plan Problems 1. Encounter for screening for malignant neoplasm of colon Z12.11 2. S/P PTCA (percutaneous transluminal coronary angioplasty) Z98.61 [facility] with PTCA/TETE of the mid and proximal RCA 09/26/2017 Plan Okay for patient stating her aspirin and Plavix she understands if there is any larger biopsy that would be necessary patient may need to come back to repeat colonoscopy without the Plavix. I have discussed the above with the patient. I have offered the patient colonoscopy for evaluation. I have explained the risks/benefits of the procedure and described the procedure. I have discussed the risks with the patient, including but not limited to: infection, bleeding, perforation of the GI tract requiring emergency surgery, inability to complete the procedure, injury to any internal organs, complications of anesthesia, etc. - the patient understands and agrees to proceed. I have answered all the patient's questions to the patient's satisfaction and the patient has no further questions. The patient has been given instructions for the colon cleansing preparation. 1 day of clears, MiraLAX Dulcolax split prep Karina Ramirez M.D. Pager: [phone] [facility] [address] [place] [address], [address] [place] [address] Office: [phone] Orders Orders: Colonoscopy Today Plan Detail Follow Up We will schedule colonoscopy Coding Level of Care Code Off vis,new,level 3 Diagnoses Encounter for screening for malignant neoplasm of colon Z12.11 S/P PTCA (percutaneous transluminal coronary angioplasty) Z98.61 12/18/18 1508 <Electronically signed by Karina Ramirez MD> Date Karina Ramirez MD I have examined the patient the following changes are noted: Patient did stop her aspirin and Plavix on her own after Sundays dose that she did not take Sunday or today. Patient states her prep is yellow in color, patient has never had a previous colonoscopy.
[2018-12-18 13:23] VITALS: BMI 18.8
[2019-01-15 07:13] VITALS: BP 119/81; PULSE 56; RESP 18; TEMP 37; O2SAT 95; BMI 19.0
[2019-01-15 08:17] VITALS: BP 110/78; BP 118/81; PULSE 65; RESP 15; TEMP 36.6; O2SAT 100
--- NOTE | 2019-01-15 08:19 | OP.ENDO_ITS ---
01/15/2019 Hugo Francois [address] [place] [address] Re : Colonoscopy procedure for Chanel Ramos Dear Dr. Francois This procedure was performed on Tuesday, January 15, 2019. My impressions and recommendations are as follows: Impressions : - Hemorrhoids found on perianal exam. - Internal hemorrhoids. - The entire examined colon is normal. - No specimens collected. Recommendations : - Discharge patient to home. - Continue present medications. - Repeat colonoscopy in 10 years for screening purposes. My findings are described in the full procedure note, which is enclosed. If I can be of further assistance, please feel free to contact me at Doctor phone number(s): , Work: . Sincerely, MD Karina Coughlin MD 01/15/2019 8:19:35 AM This report has been signed electronically.
[2019-01-15 08:22] VITALS: BP 108/72; BP 118/81; PULSE 67; RESP 16; O2SAT 100
[2019-01-15 08:27] VITALS: BP 108/78; BP 118/81; PULSE 67; RESP 16; O2SAT 98
[2019-01-15 08:32] VITALS: BP 116/76; BP 118/81; PULSE 76; RESP 16; TEMP 36.8; O2SAT 99
[2019-01-15 08:50] VITALS: BP 118/81
== END 2019-01-15 08:57 | disposition home or self-care (01) ==
LOC: EN 06:58 → AC 06:59
PROVIDERS: Family Provider Family Medicine; PCP Family Medicine; Referring Provider Family Medicine; Visit Provider Surgery
PROC: 0DJD8ZZ Inspection of Lower Intestinal Tract, Via Natural or Artificial Opening Endoscopic (ICD-10-PCS; CPT 45378; principal; 2019-01-15 07:55)
DX: Z12.11 Encounter for screening for malignant neoplasm of colon (principal); K64.0 First degree hemorrhoids; I25.10 Atherosclerotic heart disease of native coronary artery without angina pectoris; E78.5 Hyperlipidemia, unspecified; J44.9 Chronic obstructive pulmonary disease, unspecified; I10 Essential (primary) hypertension; I25.2 Old myocardial infarction; Z80.0 Family history of malignant neoplasm of digestive organs; Z87.891 Personal history of nicotine dependence; Z98.61 Coronary angioplasty status; Z79.02 Long term (current) use of antithrombotics/antiplatelets; Z79.82 Long term (current) use of aspirin; Z79.51 Long term (current) use of inhaled steroids; Z79.899 Other long term (current) drug therapy
CPT/HCPCS: 45378; J7120; J2405

== ENCOUNTER 2019-05-30 13:59 | Emergency (ER) | payer MEDICAID, SELFPAY ==
[2017-09-27 08:35] VITALS: BMI 18.0
[2019-01-30 14:37] VITALS: BMI 19.4
[2019-05-30 14:00] VITALS: PULSE 107; RESP 19; TEMP 36.4; O2SAT 95; BMI 18.5
--- NOTE | 2019-05-30 14:06 | EKG12_ITS ---
Test Reason : CP Blood Pressure : / mmHG Vent. Rate : 097 BPM Atrial Rate : 097 BPM P-R Int : 132 ms QRS Dur : 076 ms QT Int : 336 ms P-R-T Axes : 087 064 067 degrees QTc Int : 426 ms Normal sinus rhythm Right atrial enlargement ST & T wave abnormality, consider inferior ischemia ST & T wave abnormality, consider anterolateral ischemia Abnormal ECG Confirmed by NITO MASCORRO, ESTELA ([id number]), greeting card editor TAMARA SIMPSON ([id number]) on 06/03/2019 10:51:56 AM Referred By: CD Confirmed By:ESTELA BEAUCHAMP MD
--- NOTE | 2019-05-30 14:06 | RAD_ITS ---
STUDY: X-RAY CHEST REASON FOR EXAM: Female, 59 years old. Shortness of breath. TECHNIQUE: PA and lateral views of the chest. COMPARISON: Comparison is made with prior study dated September 26, 2017. FINDINGS: EKG electrodes are seen. Hyperinflation. There is no demonstrated pleural abnormality. Coronary stents are seen. Normal mediastinum and luly. Normal visualized pulmonary arteries. Normal visualized aortic arch and descending thoracic aorta. There is demineralization of the osseous structures. Normal visualized ribs, clavicles, and shoulders. There is no demonstrated abnormality of the visualized soft tissue structures of the upper abdomen. RAD/Chest PA and Lateral IMPRESSION: Hyperinflation. Electronically Signed: Krzysztof Guajardo, at 15:37 EDT , Service support ,
[2019-05-30] MEDS: Aspirin 81 MG TAB.CHEW 324 MG PO (14:09)
[2019-05-30 14:30] VITALS: PULSE 86; RESP 21
[2019-05-30] MEDS: Ipratropium/Albuterol Sulfate 3 ML AMPUL.NEB INHALATION (14:30)
[2019-05-30] MEDS: MethylPREDNISolone 125 MG/2 ML Vial IV (14:36)
[2019-05-30 15:00] VITALS: BP 120/91; PULSE 79; RESP 12; O2SAT 93
[2019-05-30 15:01] VITALS: O2SAT 93
[2019-05-30 15:03] LABS: Absolute Lymphocyte Count 1.86 X10^3/uL (0.83-4.51); Absolute Neutrophil Count 4.7 X10^3/uL (2.0-7.7); Basophil# 0.07 X10^3/uL; Basophil% 0.8 % (0-1); Eosinophil# 1.56 X10^3/uL; Eosinophils% 18.1 % (0-5); Hematocrit 44.7 % (37-47); Hemoglobin 15.2 g/dL (12.0-15.0); Lymphocyte # 1.86 X10^3/ul (4.0); Lymphocyte % 21.5 % (19-41); Mean Corpuscular Volume 94.1 fL (81-99); Mean Platelet Vol. 8.5 fl (6.2-12.0); Monocyte# 0.48 X10^3/uL; Monocyte% 5.6 % (0-10); NRBC Flagged by Analyzer 0 % (0-5); Neutrophil # 4.65 X10^3/uL (2.7-7.7); Neutrophil % 53.8 % (47-70); Platelet Count 323 K/mm3 (150-450); RBC Distribution Width CV 13.5 % (11.6-14.6); Red Blood Count 4.75 M/mm3 (4.2-5.4); White Blood Count 8.6 K/mm3 (4.4-11.0)
[2019-05-30 15:09] LABS: Anion Gap 7 (5-15); BUN 9 mg/dL (7-18); BUN/Creat Ratio 11.9 RATIO (10-20); Calcium,Total 9.7 mg/dL (8.5-10.1); Chloride 106 mmol/L (98-107); Creatinine, Serum 0.76 mg/dL (0.55-1.02); EST Glomerular Filtration Rate 83 mL/min (>60); Est Glom Filt Rate - Afr Amer 101 mL/min (>60); Estimated Creatinine Clearance 55.93 ml/min; Glucose 108 mg/dL (74-106); Potassium 3.7 mmol/L (3.5-5.1); Sodium Level 138 mmol/L (136-145)
--- NOTE | 2019-05-30 15:59 | ED.VIS.GEN ---
History of Present Illness Chief Complaint: Chest Pain Narrative: 59-year-old female with a history of COPD presents with 1 week of cough, congestion, and wheezing. This feels like a COPD flare. She quit smoking 1 year ago. No recent travel or immobilization. No lower extremity pain or swelling. Current severity is moderate. Sputum has been green in color. Past Medical History - Allergies and Home Meds Allergies/Adverse Reactions: Allergies latex Allergy (Verified 01/30/19 14:44) Rash Penicillins Allergy (Verified 01/30/19 14:44) Unknown Primary Care Physician: Hugo Francois DO [Primary Care Provider] - Prior records reviewed: Yes Surgical History: noncontributory Smoking Status: Former smoker - Family History Maternal Family History: Family History (Last Reviewed 01/29/19 @ 10:09 by Herlinda Dc) Father Myocardial infarction FH: CABG (coronary artery bypass surgery) Hypertension Diabetes Mother Myocardial infarction FH: CABG (coronary artery bypass surgery) HLD (hyperlipidemia) Diabetes Brother Cancer Brother Cancer Brother Cancer Grandmother Colon cancer Family History: Reports: Unknown Paternal Family History: Family History (Last Reviewed 01/29/19 @ 10:09 by Herlinda Dc) Father Myocardial infarction FH: CABG (coronary artery bypass surgery) Hypertension Diabetes Mother Myocardial infarction FH: CABG (coronary artery bypass surgery) HLD (hyperlipidemia) Diabetes Brother Cancer Brother Cancer Brother Cancer Grandmother Colon cancer Family History: Reports: Unknown Review of Systems General: Denies: Chills, Fever, Sweats Eyes: Denies: Visual changes - bilaterally, Diplopia ENT: Denies: Rhinorrhea, Sore throat Cardiovascular: Denies: Chest pain, Palpitations Respiratory: Reports: Dyspnea, Cough, Sputum. Denies: Dyspnea on exertion Gastrointestinal: Denies: Abdominal pain, Nausea, Vomiting, Diarrhea, Melena, Hematochezia Genitourinary: Denies: Dysuria, Hematuria, Frequency Musculoskeletal: Denies: Back pain, Extremity Pain Skin: Denies: Rash, Wounds Neurological: Denies: Headache, Weakness, Numbness Physical Exam Vital Signs/Narrative: Vital Signs Temp Pulse Resp BP Pulse Ox 05/30/19 15:01 93 05/30/19 15:00 79 12 120/91 H 93 05/30/19 14:30 86 21 H 05/30/19 14:00 97.6 F L 107 H 19 H 95 General: Well nourished, Well developed, No Acute Distress Head: Normocephalic, Atraumatic Eyes: Perrl, EOMI ENT: Moist mucous membranes, No rhinorrhea Neck: Supple, Nontender Cardiovascular: Regular rate, Regular rhythm, No murmurs Respiratory: No distress, Chest nontender, Wheezing Abdomen: Soft, Nontender, Nondistended, Normal bowel sounds Back: Nontender, Normal Inspection Extremities: Nontender, No edema Skin: Normal color, No rash Neurological: Alert, Oriented x3, Cranial nerves II-XII grossly intact, Normal Strength, Normal Sensation Psychological: Normal affect, Normal Mood Diagnostic/Tx/Re-eval - Medical Decision Making labs are within normal limits. Negative troponin after several days of pain arguing against acute coronary syndrome. Unremarkable EKG as well. This seems primarily respiratory in nature. She has COPD. Her wheezing resolved with breathing treatments. She was given IV steroids as well. She looks well and I feel she can safely be discharged home. Pulse oximetry is normal. I will place her on doxycycline because she has had an increase in sputum production as well as steroids. She will return here if worse. ED Disposition - Plan for ED Patient: Diagnosis: COPD exacerbation, Lower respiratory infection Instructions: Copd Flare Prescriptions: Prednisone [Deltasone] 40 mg PO DAILY #10 tablet Doxycycline 100 mg PO BID #20 capsule Albuterol Inhaler [Ventolin Hfa] 1 - 2 puff INHALATION Q4H PRN PRN #1 inhaler PRN Reason: Wheezing Referrals: Hugo Francois DO [Primary Care Provider] -
--- NOTE | 2019-05-30 16:14 | ED.VIS.GEN ---
History of Present Illness Chief Complaint: Chest Pain Past Medical History - Allergies and Home Meds Allergies/Adverse Reactions: Allergies latex Allergy (Verified 01/30/19 14:44) Rash Penicillins Allergy (Verified 01/30/19 14:44) Unknown Primary Care Physician: Hugo Francois DO [Primary Care Provider] - Surgical History: noncontributory Smoking Status: Former smoker - Family History Maternal Family History: Family History (Last Reviewed 01/29/19 @ 10:09 by Herlinda Dc) Father Myocardial infarction FH: CABG (coronary artery bypass surgery) Hypertension Diabetes Mother Myocardial infarction FH: CABG (coronary artery bypass surgery) HLD (hyperlipidemia) Diabetes Brother Cancer Brother Cancer Brother Cancer Grandmother Colon cancer Family History: Reports: Unknown Paternal Family History: Family History (Last Reviewed 01/29/19 @ 10:09 by Herlinda Dc) Father Myocardial infarction FH: CABG (coronary artery bypass surgery) Hypertension Diabetes Mother Myocardial infarction FH: CABG (coronary artery bypass surgery) HLD (hyperlipidemia) Diabetes Brother Cancer Brother Cancer Brother Cancer Grandmother Colon cancer Family History: Reports: Unknown Physical Exam Vital Signs/Narrative: Vital Signs Temp Pulse Resp BP Pulse Ox 05/30/19 15:01 93 05/30/19 15:00 79 12 120/91 H 93 05/30/19 14:30 86 21 H 05/30/19 14:00 97.6 F L 107 H 19 H 95 ED Disposition - Plan for ED Patient: Diagnosis: COPD exacerbation, Lower respiratory infection Instructions: Copd Flare Prescriptions: Prednisone [Deltasone] 40 mg PO DAILY #10 tab Prescription Printed Doxycycline 100 mg PO BID #20 cap Prescription Printed Albuterol Aerosols [Ventolin Aerosols] 2.5 mg INHALATION Q2H PRN PRN 30 Days #25 vial.neb. PRN Reason: Wheezing Albuterol Inhaler [Ventolin Hfa] 1 - 2 puff INHALATION Q4H PRN PRN #1 inhaler PRN Reason: Wheezing Prescription Printed Referrals: Hugo Francois DO [Primary Care Provider] -
[2019-05-30 16:36] VITALS: BP 128/78; PULSE 87; RESP 20; O2SAT 93
== END 2019-05-30 16:37 | disposition home or self-care (01) ==
LOC: ED 14:38
PROVIDERS: Emergency Provider Emergency Medicine; Family Provider Family Medicine; PCP Family Medicine
DX: J44.1 Chronic obstructive pulmonary disease with (acute) exacerbation (principal); J44.0 Chronic obstructive pulmonary disease with (acute) lower respiratory infection; J22 Unspecified acute lower respiratory infection; Z87.891 Personal history of nicotine dependence; Z79.51 Long term (current) use of inhaled steroids
CPT/HCPCS: 71046; 80048; 84484; 85025; 93005; 94640; 96374; 99285; A4216

== ENCOUNTER 2019-06-15 10:04 | Inpatient (IN) | payer MEDICAID, SELFPAY ==
[2017-09-27 08:35] VITALS: BMI 18.0
[2019-06-15] VITALS (11 sets, daily range): BP systolic 106–143; BP diastolic 77–85; PULSE 77–100; RESP 16–22; TEMP 36.5–36.9; O2SAT 94–99; BMI 19.3
--- NOTE | 2019-06-15 10:35 | RAD_ITS ---
STUDY: X-RAY CHEST REASON FOR EXAM: Female, 59 years old. Cold symptoms TECHNIQUE: PA and lateral views of the chest. COMPARISON: 05/30/2019 FINDINGS: There is hyperinflation of the lungs consistent with chronic obstructive lung disease (COPD). Lungs are clear. There is no demonstrated pleural abnormality. Normal size heart. Normal mediastinum and luly. Normal visualized pulmonary arteries. Normal visualized aortic arch and descending thoracic aorta. Normal visualized thoracic spine. Normal visualized ribs, clavicles, and shoulders. There is no demonstrated abnormality of the visualized soft tissue structures of the upper abdomen. RAD/Chest PA and Lateral IMPRESSION: COPD. No acute findings Electronically Signed: Jr Blunt DO at 11:58 EST Tel , Service support ,
--- NOTE | 2019-06-15 10:35 | EKG12_ITS ---
Test Reason : COUGH Blood Pressure : / mmHG Vent. Rate : 072 BPM Atrial Rate : 072 BPM P-R Int : 134 ms QRS Dur : 080 ms QT Int : 396 ms P-R-T Axes : 086 056 061 degrees QTc Int : 433 ms Normal sinus rhythm Normal ECG Confirmed by NITO MASCORRO, ESTELA ([id number]), associate entertainment editor KACEY WOLF ([id number]) on 06/17/2019 2:23:16 PM Referred By: Jj Mcnally Confirmed By:ESTELA BEAUCHAMP MD
--- NOTE | 2019-06-15 10:36 | ED.DCSUM_ITS ---
- ER Visit Summary Date of Service: 06/15/19 Chief Complaint: Dyspnea History of Present Illness: The patient is a 59 F who states that little over a year ago she was told she had COPD. She never had any problems from it but she did quit smoking after her heart attack. She tells me that 2 weeks ago she was seen in the emergency department was told that she had a COPD flare and was put on prednisone albuterol and an antibiotic. She states that she was feeling better up until about 2 days ago when she had a progressive worsening of her breathing. She notes cough with sputum production that is different from baseline. Dyspnea on exertion. As well as rhinorrhea. She has always had seasonal allergies in the fall. She notes a subjective fever. She has never had formal pulmonary function testing. She has been using a family members aerosol machine. Physical Examination: Afebrile vital signs are stable Gen: Well-nourished well-developed Head: Normocephalic atraumatic Eyes: Perrl EOMI ENT: TMs clear no rhinorrhea moist mucous membranes Neck: Supple no lymphadenopathy no JVD nontender CVS: Regular rate rhythm no murmurs normal S1-S2 Respiratory: Patient has conversational dyspnea. She has inspiratory and expiratory wheeze. Moist cough. Chest nontender Abdomen: Soft nontender nondistended normal bowel sounds no masses Back: Nontender Extremity: Nontender no edema Skin: Normal color no rash Neuro: alert orientated ?3 CN II-XII intact normal strength sensation reflexes gait cerebellar Psych: Normal affect normal mood Test Results: CBC BMP troponin were negative. EKG shows a sinus rhythm at a rate of 72. Chest x-ray with chronic changes but no infiltrate Emergency Department Course and Treatment: Patient received aerosols and Solu- Medrol. Repeat examination shows her conversational dyspnea to be lessened. There is improved air movement but still with expiratory wheeze. I ambulated the patient she became tachycardic at about 125 and a pulse ox of 89% and we had labored breathing. Our plan is admission to the hospital for further care Impression: 1. Acute COPD exacerbation This note was generated with [employer] dictation software. It may contain incorrect words, spelling, and punctuation that were not noted in review of the chart prior to signing ED Disposition - Plan for ED Patient: Referrals: Hugo Francois DO [Primary Care Provider] -
[2019-06-15] MEDS: MethylPREDNISolone 125 MG/2 ML Vial IV (10:45)
[2019-06-15 10:50] LABS: Absolute Lymphocyte Count 1.61 X10^3/uL (0.83-4.51); Basophil# 0.06 X10^3/uL; Basophil% 0.6 % (0-1); Eosinophil# 1.28 X10^3/uL; Eosinophils% 13.6 % (0-5); Hematocrit 43.6 % (37-47); Hemoglobin 14.2 g/dL (12.0-15.0); Lymphocyte # 1.61 X10^3/ul (4.0); Lymphocyte % 17.1 % (19-41); Mean Corp Hgb Conc 32.6 g/dL (32-36); Mean Corpuscular Hgb 31.6 pg (27.0-32.0); Mean Corpuscular Volume 96.9 fL (81-99); Mean Platelet Vol. 9.1 fl (6.2-12.0); Monocyte# 0.41 X10^3/uL; Monocyte% 4.4 % (0-10); NRBC Flagged by Analyzer 0 % (0-5); Neutrophil # 6.04 X10^3/uL (2.7-7.7); Neutrophil % 64.1 % (47-70); Platelet Count 273 K/mm3 (150-450); RBC Distribution Width CV 14.4 % (11.6-14.6); RBC Distribution Width SD 51.2 fl (35.1-43.9); White Blood Count 9.4 K/mm3 (4.4-11.0)
[2019-06-15] MEDS: Ipratropium/Albuterol Sulfate 3 ML AMPUL.NEB INHALATION ×4 (10:52→23:18)
[2019-06-15] MEDS: Albuterol 2.5 MG/3 ML VIAL.NEB. INHALATION ×3 (10:52→11:47)
[2019-06-15 11:05] LABS: Anion Gap 7 (5-15); BUN 14 mg/dL (7-18); BUN/Creat Ratio 19.1 RATIO (10-20); Calcium,Total 9.5 mg/dL (8.5-10.1); Chloride 110 mmol/L (98-107); Creatinine, Serum 0.73 mg/dL (0.55-1.02); EST Glomerular Filtration Rate 86 mL/min (>60); Est Glom Filt Rate - Afr Amer 104 mL/min (>60); Estimated Creatinine Clearance 62.61 ml/min; Glucose 106 mg/dL (74-106); Potassium 3.9 mmol/L (3.5-5.1); Sodium Level 142 mmol/L (136-145)
--- NOTE | 2019-06-15 13:18 | HP.PCM_ITS ---
Problem List (1) Hx of wisdom tooth extraction Status: Inactive (2) S/P excision of lipoma Status: Inactive Comment: front of neck-2012 (3) Hx of non-cataract eye surgery Status: Inactive Comment: bilateral- 1962 (4) Atherosclerotic heart disease of [place] coronary artery without angina pectoris Status: Chronic Comment: LHC with PTCA/TETE of the mid and proximal RCA 09/26/2017 (5) Rib pain Status: Inactive (6) Nicotine dependence, cigarettes, uncomplicated Status: Chronic (7) Respiratory arrest Status: Inactive (8) HLD (hyperlipidemia) Status: Chronic Qualifiers: (9) NSTEMI (non-ST elevated myocardial infarction) Status: Chronic (10) Cardiac arrest with ventricular fibrillation Status: Chronic (11) S/P PTCA (percutaneous transluminal coronary angioplasty) Status: Chronic Comment: LHC with PTCA/TETE of the mid and proximal RCA 09/26/2017 (12) Cardiac arrest Status: Chronic History of Present Illness Date of Admission: 06/15/19 Chief Complaint: Shortness of breath for about 2 weeks The patient is a 59 year old F with history of presumed COPD, cardiac arrest with V. fib, non-STEMI status post 2 stents in September 2017 when she was last admitted came to ER with shortness of breath, progressively worsening for 2 weeks. She also feels subjective fever, chills, productive sputum, mainly mucus as well as URI symptoms of runny nose and nasal allergy. She was seen last seen in ER on May 30 2019 was told COPD exacerbation and was given prednisone, albuterol and antibiotic and discharged. Denies chest pain, irregular heartbeat or palpitation. In ED, pulse ox 96% on room air, respiratory rate 19-22, heart rate in low 100s and afebrile. Chest x-ray does not show acute cardiopulmonary abnormality [] Past Medical History Past Medical History (Chronic Problems): Chronic Problems (Last Reviewed 01/29/19 @ 10:09 by Herlinda Dc) Atherosclerotic heart disease of [place] coronary artery without angina pectoris (Chronic) LHC with PTCA/TETE of the mid and proximal RCA 09/26/2017 Nicotine dependence, cigarettes, uncomplicated (Chronic) HLD (hyperlipidemia) (Chronic) NSTEMI (non-ST elevated myocardial infarction) (Chronic) Cardiac arrest with ventricular fibrillation (Chronic) S/P PTCA (percutaneous transluminal coronary angioplasty) (Chronic 09/26/17) [facility] with PTCA/TETE of the mid and proximal RCA 09/26/2017 Cardiac arrest (Chronic) Medical History: Medical History (Last Reviewed 01/29/19 @ 10:09 by Herlinda Dc) Atherosclerotic heart disease of [place] coronary artery without angina pectoris (Chronic) I25.10 [facility] with PTCA/TETE of the mid and proximal RCA 09/26/2017 Rib pain (Acute) R07.81 Nicotine dependence, cigarettes, uncomplicated (Chronic) F17.210 Respiratory arrest (Acute) R09.2 HLD (hyperlipidemia) (Chronic) E78.5 NSTEMI (non-ST elevated myocardial infarction) (Acute) I21.4 Cardiac arrest with ventricular fibrillation (Acute) I46.9, I49.01 Cardiac arrest (Acute) I46.9 Allergies latex Allergy (Verified 06/15/19 10:05) Rash Penicillins Allergy (Verified 06/15/19 10:05) Unknown Home Medications: Ambulatory Orders Medication Instructions Recorded Aspirin [Aspirin, Baby] 81 mg PO DAILY@0800 tab.chew 09/29/17 ibuprofen 800 mg tablet 800 mg PO TID PRN tab 07/15/18 atorvastatin 80 mg tablet 80 mg PO QHS #90 tab 10/09/18 metoprolol tartrate 25 mg tablet 12.5 mg PO BID #90 tab 10/09/18 albuterol sulfate HFA 90 2 puff INHALATION Q1H PRN g 12/18/18 mcg/actuation aerosol inhaler sertraline 50 mg tablet 50 mg PO DAILY 12/18/18 Albuterol Aerosols [Ventolin 2.5 mg INHALATION Q2H PRN PRN 30 05/30/19 Aerosols] Days #25 vial.neb. Albuterol Inhaler [Ventolin Hfa] 1 - 2 puff INHALATION Q4H PRN PRN 05/30/19 #1 inhaler Surgical History: Surgical History (Last Reviewed 01/29/19 @ 10:09 by Herlinda Dc) Hx of wisdom tooth extraction (Acute) K08.409 S/P excision of lipoma (Acute) Z98.890, Z86.018 front of neck-2012 Hx of exploratory laparotomy (Acute) Z98.890 abdominal adhesions- 1986 Hx of non-cataract eye surgery (Acute) Z98.890 bilateral- 1963 S/P PTCA (percutaneous transluminal coronary angioplasty) (Resolved) Onset Date: 09/26/17 Z98.61 [facility] with PTCA/TETE of the mid and proximal RCA 09/26/2017 Surgical History: noncontributory Psychiatric History: No pertinent psych hx [employer] History: No pertinent [employer] history Smoking Status: Former smoker - *Family History Maternal Family History: Family History (Last Reviewed 01/29/19 @ 10:09 by Herlinda Dc) Father Myocardial infarction FH: CABG (coronary artery bypass surgery) Hypertension Diabetes Mother Myocardial infarction FH: CABG (coronary artery bypass surgery) HLD (hyperlipidemia) Diabetes Brother Cancer Brother Cancer Brother Cancer Grandmother Colon cancer History Items: Unknown Paternal Family History: Family History (Last Reviewed 01/29/19 @ 10:09 by Herlinda Dc) Father Myocardial infarction FH: CABG (coronary artery bypass surgery) Hypertension Diabetes Mother Myocardial infarction FH: CABG (coronary artery bypass surgery) HLD (hyperlipidemia) Diabetes Brother Cancer Brother Cancer Brother Cancer Grandmother Colon cancer History Items: Unknown Review of Systems Constitutional: Reports: Chills, Fever, Malaise, Weakness, Fatigue HEENT: Denies: Head Aches, Sinus Congestion, Sinus Drainage Cardiovascular: Denies: Chest Pain, Chest Pressure, Chest Tightness, Pal pitations Respiratory: Reports: Cough, Shortness of breath at rest, Shortness of breath upon exertion, Sputum production, Wheezing. Denies: Hemoptysis, Pleuritic Pain Gastrointestinal: Denies: Abdominal Pain, Nausea, Vomiting Genitourinary: Denies: Dysuria, Frequency, Hematuria, Urgency Musculoskeletal: Denies: Joint Pain, Joint Tenderness Skin: Denies: Rash, Wounds Neurological: Denies: Numbness, Tingling, Focal weakness Psychiatric: Denies: Anxiety, Depression, Homicidal Ideations, Suicidal Ideations Hematologic/ Lymphatic: Denies: Easy Bruising, Easy Bleeding VTE Information - Inpt Only VTE Present on Admission: No VTE Mechan Device Prophylaxis: None VTE Pharm Prophylaxis ordered?: Yes - Physical Exam Vitals/I&O's: Vital Signs Temp Pulse Resp BP Pulse Ox 98.1 F 93 18 126/77 H 97 06/15/19 10:05 06/15/19 12:41 06/15/19 12:41 06/15/19 12:41 06/15/19 12:41 Oxygen Flow Rate (L/min) 2 Oxygen Delivery Method Nasal Cannula Weight: 106 lb 4.205 oz Body Mass Index (BMI) 20.0 General: Alert, Oriented x3, Cooperative, - - Looks older than her age. BMI 20. HEENT: Atraumatic, PERRLA, EOMI, Normocephalic Neck: Supple, No JVD, Negative Carotid Bruits Lungs: Diminished - Air entry severely diminished in all lung choudhury., Rhonchi - Expiratory rhonchi, Short of Breath, Using Accessory Muscles, Wheezes Cardiovascular: Regular rate, Regular Rhythm, Normal S1, Normal S2, No murmurs Abdomen: Bowel Sounds Present, Soft, Non Tender, Non-Distended Extremities: No edema, Capillary Refill Less than 3 Seconds Skin: No rashes, No breakdown Musculoskeletal: No Tenderness to Palpation of Joints or Extremities, Arthritic Changes Neurological: Cranial nerves II-XII grossly intact, Deep Tendon Reflexes 2+/4 and Symmetrical, Neuro grossly intact Psych/Mental Status: Normal Affect, Appropriate Laboratory Results 06/15/19 10:23: WBC 9.4, RBC 4.50, Hgb 14.2, Hct 43.6, MCV 96.9, MCH 31.6, MCHC 32.6, RDW Std Deviation 51.2 H, RDW Coeff of Obie 14.4, Plt Count 273, MPV 9.1, Immature Gran % (Auto) 0.200, Neut % (Auto) 64.1, Lymph % (Auto) 17.1 L, [place] % (Auto) 4.4, Eos % (Auto) 13.6 H, Baso % (Auto) 0.6, Absolute Neuts (auto) 6.0, Absolute Lymphs (auto) 1.61, Nucleated RBC % 0 06/15/19 10:23: Sodium 142, Potassium 3.9, Chloride 110 H, Carbon Dioxide 25.0, Anion Gap 7, BUN 14, Creatinine 0.73, Estim Creat Clear Calc 62.61, Est GFR (MDRD) Af Amer 104, Est GFR (MDRD) Non-Af 86, BUN/Creatinine Ratio 19.1, Glucose 106, Calcium 9.5, Troponin I < 0.015 Assessment/Plan All Active Problems (Last Reviewed 01/29/19 @ 10:09 by Herlinda Dc) Hx of exploratory laparotomy (Acute) The patient is a 59 year old F with history of presumed COPD, cardiac arrest with V. fib, non-STEMI status post 2 stents in September 2017 when she was last admitted came to ER with shortness of breath, progressively worsening for 2 weeks. She also feels subjective fever, chills, productive sputum, mainly mucus as well as URI symptoms of runny nose and nasal allergy. She was seen last seen in ER on May 30 2019 was told COPD exacerbation and was given prednisone, albuterol and antibiotic and discharged. In ED, pulse ox 96% on room air, respiratory rate 19-22, heart rate in low 100s and afebrile. [] 1. COPD exacerbation: Patient is being admitted on MedSurg floor. Started on DuoNeb, albuterol as needed, IV Solu-Medrol, Zithromax, incentive spirometry and chest physiotherapy. Oxygen therapy as needed to keep pulse ox more than 90%. With history of subjective fever, respiratory panel, sputum culture, urinary antigens are ordered. Chest x-ray does not show acute cardiopulmonary abnormality 2. History of V. fib cardiac arrest, non-STEMI, coronary artery status post 2 stents in September 2017: Patient follows Dr. Colindres. No recent significant cardiac event after that. Twelve-lead EKG ordered. Continue cardiac medications. Patient denies chest pain/palpitations/arrhythmia. Patient had normal adequate dobutamine echo is negative by EKG and echo criteria in November 2017. She saw Dr. Colindres in January 2019. 3. moderate protein calorie malnutrition: Nutrition is consulted. On Ensure 4 Other comorbidities include dyslipidemia and history of tobacco use of about 40 pack years. Patient quit smoking in September 2017 after cardiac arrest. Home medication reconciliation done DVT prophylaxis: On Lovenox 40 mg subcut daily Code Visit Inpatient E&M: 77480 Init Hosp L3
--- NOTE | 2019-06-15 13:40 | EKG12_ITS ---
Test Reason : Blood Pressure : / mmHG Vent. Rate : 080 BPM Atrial Rate : 080 BPM P-R Int : 134 ms QRS Dur : 084 ms QT Int : 372 ms P-R-T Axes : 083 053 049 degrees QTc Int : 429 ms Normal sinus rhythm with sinus arrhythmia Nonspecific ST abnormality Abnormal ECG When compared with ECG of 30-MAY-2019 14:02, T wave inversion no longer evident in Inferior leads T wave inversion no longer evident in Anterolateral leads Confirmed by MONALISA MASCORRO, WEI ([id number]), senior technical editor WONG DAVIDSON ([id number]) on 06/24/2019 1:20:34 PM Referred By: Jj Mcnally Confirmed By:ANNIKA SHELDON MD
[2019-06-15 13:58] LABS: Magnesium 2.1 mg/dL (1.6-2.6)
[2019-06-15] MEDS: 0.9% Normal Saline 1,000 ML 75 ML IV (14:01)
[2019-06-15] MEDS: 0.9% Saline Lock 10 ML Syringe IV ×2 (14:01→15:35)
[2019-06-16] VITALS (12 sets, daily range): BP systolic 112–122; BP diastolic 73–79; PULSE 84–103; RESP 10–20; TEMP 36.8–37.1; O2SAT 94–98
[2019-06-16] MEDS: Acetaminophen 325 MG Tablet 650 MG PO (02:16)
[2019-06-16] MEDS: 0.9% Saline Lock 10 ML Syringe IV ×3 (05:53→21:34)
[2019-06-16 06:40] LABS: Thyroid Stim Hormone (TSH) 0.31 uIU/mL (0.358-3.74)
[2019-06-16] MEDS: Ipratropium/Albuterol Sulfate 3 ML AMPUL.NEB INHALATION ×4 (07:15→18:52)
--- NOTE | 2019-06-16 08:18 | PCM.PROGNOTE ---
Subjective: Chief complaint: Follow-up after admission for acute COPD exacerbation. Patient seen and examined. No acute events overnight. Today, patient is feeling better, shortness of breath started to improve but still having cough with yellow sputum. She still having wheezing as well. All over, she is feeling better. She is afebrile, blood pressure and heart rate are stable, pulse ox is 97% on 1 L. - Physical Exam Vitals/I&O's: Vital Signs Temp Pulse Resp BP Pulse Ox 98.8 F 102 H 18 122/79 H 97 06/16/19 02:10 06/16/19 02:10 06/16/19 02:10 06/16/19 02:10 06/16/19 02:10 Oxygen Flow Rate (L/min) 1 Oxygen Delivery Method Nasal Cannula Weight: 102 lb 1.184 oz Body Mass Index (BMI) 19.3 Intake and Output for Last 24 Hours 06/14/19 06/15/19 06/16/19 23:59 23:59 23:59 Intake Total 670 / 670 1185 / 1185 Balance 670 / 670 1185 / 1185 General: Alert, Oriented x3, Cooperative, No apparent distress HEENT: Atraumatic, PERRLA, EOMI, Normocephalic Oral: Moist Mucosa, No Gingival or Mucosal Lesions/ Ulcerations Neck: Supple, No JVD, Negative Carotid Bruits, Trachea Midline, Thyroid Normal Size and Texture Lungs: No rhonchi, No rales, Diminished, Wheezes, - - Decreased breath sounds bilateral, bilateral expiratory wheezes. Cardiovascular: Regular rate, Regular Rhythm, Normal S1, Normal S2, PMI Normal Abdomen: Bowel Sounds Present, Soft, Non Tender, Non-Distended, No Hepato-splenomegaly Extremities: No clubbing, No cyanosis, No edema Skin: No rashes, No breakdown Lymphatic: No Cervical, Supraclavicular, or Inguinal Adenopathy Neurological: Cranial nerves II-XII grossly intact, Motor Exam 5/5 strength throughout Psych/Mental Status: Normal Affect, Appropriate, Alert and oriented to time, place, person, mood and affect Microbiology Past 72 Hours 06/15/19 16:35 Urine, Clean Catch Streptococcus pneumoniae Antigen (M - Final 06/15/19 16:35 Urine, Clean Catch Legionella Antigen - Final Laboratory Results 06/15/19 10:23: WBC 9.4, RBC 4.50, Hgb 14.2, Hct 43.6, MCV 96.9, MCH 31.6, MCHC 32.6, RDW Std Deviation 51.2 H, RDW Coeff of [place] 14.4, Plt Count 273, MPV 9.1, Immature Gran % (Auto) 0.200, Neut % (Auto) 64.1, Lymph % (Auto) 17.1 L, [place] % (Auto) 4.4, Eos % (Auto) 13.6 H, Baso % (Auto) 0.6, Absolute Neuts (auto) 6.0, Absolute Lymphs (auto) 1.61, Nucleated RBC % 0 06/15/19 10:23: Sodium 142, Potassium 3.9, Chloride 110 H, Carbon Dioxide 25.0, Anion Gap 7, BUN 14, Creatinine 0.73, Estim Creat Clear Calc 62.61, Est GFR (MDRD) Af Amer 104, Est GFR (MDRD) Non-Af 86, BUN/Creatinine Ratio 19.1, Glucose 106, Calcium 9.5, Troponin I < 0.015 06/15/19 10:23: Magnesium 2.1 06/16/19 05:30: TSH 0.31 L Clinical Impression(s) from Imaging Studies Chest X-Ray 06/15/19 10:35 IMPRESSION: COPD. No acute findings Electronically Signed: Jr Blunt DO at 11:58 EST Tel , Service support , Current Medications Acetaminophen (Tylenol) 650 mg PO Q6H PRN PRN PRN Reason: Pain Score 1-3/Temp > 100.7 F Last Admin: 06/16/19 02:16 Dose: 650 mg Documented by: Al Hydroxide/Mg Hydroxide (Mylanta Ii) 30 ml PO Q6H PRN PRN PRN Reason: Gastric Burning Albuterol Sulfate (Ventolin Aerosols) 2.5 mg INHALATION Q2H PRN PRN PRN Reason: SHORTNESS OF BREATH Albuterol/Ipratropium (Duoneb) 3 ml INHALATION Q4H.RT ALIZA Last Admin: 06/16/19 07:15 Dose: 3 ml Documented by: Bisacodyl (Dulcolax) 10 mg RECTAL DAILY PRN PRN PRN Reason: Constipation Dextrose (D50w Syringe) 0 gm IV X1 PRN; Protocol PRN Reason: Hypoglycemia Docusate Sodium (Colace) 200 mg PO BID PRN PRN PRN Reason: Constipation Glucagon () 1 mg IM .X1 PRN PRN Reason: Hypoglycemia Azithromycin 500 mg/ Dextrose 255 mls @ 250 mls/hr IV Q24 ALIZA Stop: 06/17/19 11:02 Last Infusion: 06/15/19 16:51 Dose: Infused Documented by: Sodium Chloride () 250 mls @ 15 mls/hr IV .[id number] PRN PRN Reason: Saline Flush Methylprednisolone (Solu-Medrol) 40 mg IV Q8 [facility] Last Admin: 06/16/19 05:53 Dose: 40 mg Documented by: Morphine Sulfate () 2 mg IV Q3H PRN PRN PRN Reason: Pain Score 6-10/10 Oxycodone HCl (Oxyir) 5 mg PO Q4H PRN PRN PRN Reason: Pain Score 4-5/10 Prochlorperazine Edisylate (Compazine Iv) 5 mg IV Q4H PRN PRN PRN Reason: Breakthrough nausea/vomiting Sodium Chloride () 10 - 40 ml IV UD PRN PRN Reason: SALINE FLUSH Last Admin: 06/16/19 05:53 Dose: 10 ml Documented by: Medical Necessity - Tobacco Use Smoking Status: Former smoker Tobacco Use: Cigarettes Assessment/Plan This is a 59 years old female patient presented to the emergency room because of shortness of breath, cough and wheezing which was found to have acute COPD exacerbation. #1 acute COPD exacerbation: Chest x-ray reviewed, no acute findings. She is on IV steroids and bronchodilators as well as IV Zithromax. Pneumococcal and Legionella antigen were negative. Respiratory panel for viruses pending. Sputum cultures pending. Patient reported improvement of her symptoms. She is on 1 L of oxygen, other vital signs are stable. Plan to continue same treatment. #2 CAD status post stents: EKG reviewed, showed no acute ischemic changes, normal sinus rhythm. Troponin was negative. Continue aspirin, statins and metoprolol. #3 history of V. fib cardiac arrest: Stable, no acute issues. Plan as above. #4 hyperlipidemia: Continue statins. #5 DVT prophylaxis: Low risk patient, no prophylaxis indicated, ambulate. This note was generated with Ensyn dictation software. It may contain incorrect words, spelling, and punctuation that were not noted in checking the note before signing. Code Visit Inpatient E&M: 16937 Subs Hosp L2
[2019-06-16 09:44] LABS: Free T3 1.6 pg/mL (2.18-3.98); T4 Free Direct 0.92 ng/dL (0.76-1.46); T4 Total, Thyroxin 8.2 ug/dL (4.8-13.9)
[2019-06-16] MEDS: Metoprolol Tartrate 25 MG Tablet 12.5 MG PO ×2 (10:26→21:32)
[2019-06-16] MEDS: Sertraline 50 MG Tablet PO (10:26)
--- NOTE | 2019-06-16 11:15 | CASEMGMT ---
RN CM Face to Face with patient for initial transition planning/care coordination assessment. RN CM introduced self and role at [facility]. Patient lying in bed, alert and oriented. Patient willing to participate in assessment and is able to answer all questions appropriately. Care providers, pharmacy, and demographics verified. Patient wishes to discharge home, denies need for home health at this time. Patient states she has no further needs or concerns at this time. CM to follow for discharge planning needs that may arise. 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 Patient independent at home and cares for parents. Transportation: self, DME/HHC: patient denies DME at home for self. Will monitor for need for home oxygen at discharge. Disposition Plan: Patient to discharge home with family support and follow-up plans in place. Gisela CR, RN, CM
[2019-06-16] MEDS: Atorvastatin Calcium 80 MG Tablet PO (21:34)
[2019-06-17 03:50] VITALS: BP 118/76; PULSE 68; RESP 16; TEMP 36.6; O2SAT 94
[2019-06-17] MEDS: 0.9% Saline Lock 10 ML Syringe IV (06:50)
[2019-06-17 07:04] VITALS: PULSE 73; RESP 18; O2SAT 90
[2019-06-17] MEDS: Ipratropium/Albuterol Sulfate 3 ML AMPUL.NEB INHALATION (07:04)
[2019-06-17 08:00] VITALS: BP 117/75; PULSE 68; RESP 16; TEMP 36.8; O2SAT 98
[2019-06-17 08:08] VITALS: O2SAT 90
[2019-06-17 08:09] VITALS: PULSE 65
[2019-06-17] MEDS: Metoprolol Tartrate 25 MG Tablet 12.5 MG PO (08:09)
[2019-06-17] MEDS: Sertraline 50 MG Tablet PO (08:10)
[2019-06-17] MEDS: Aspirin 81 MG TAB.CHEW PO (08:10)
--- NOTE | 2019-06-17 09:28 | DCINST_ITS ---
You will use the following diet at home:: Cardiac Your food should be the consistency of: Regular Discharge Activity: Return to Normal Activity Weight Bearing Status: Full weight bearing Call your doctor if you observe: Fever of 101 or Higher, Shortness of breath, Dizziness, Fainting spells, Chest pain, Increased palpitations (irregular heartbeat), Uncontrolled pain Instructions: COPD: Using Inhalers, Treatments for COPD Allergies/Adverse Reactions: Allergies latex Allergy (Verified 06/15/19 10:05) Rash Penicillins Allergy (Verified 06/15/19 13:42) Hives Medications to take at Discharge Aspirin [Aspirin, Baby] 81 mg PO DAILY@0800 tab.chew 09/29/17 atorvastatin 80 mg tablet 80 mg PO QHS #90 tab 10/09/18 metoprolol tartrate 25 mg tablet 12.5 mg PO BID #90 tab 10/09/18 sertraline 50 mg tablet 50 mg PO DAILY 12/18/18 Albuterol Aerosols [Ventolin Aerosols] 2.5 mg INHALATION Q2H PRN PRN 30 Days #25 vial.neb. 05/30/19 Albuterol Inhaler [Ventolin Hfa] 1 - 2 puff INHALATION Q4H PRN PRN #1 inhaler 05/30/19 Azithromycin [Zithromax] 500 mg PO DAILY #3 tab 06/17/19 Budesonide/Formoterol Fumarate [Symbicort 80-4.5 Mcg Inhaler] 2 puff IH BID #2 hfa.aer.ad 06/17/19 Prednisone 40 mg PO DAILY #30 tab 06/17/19 Tiotropium [place] [Spiriva] 2 puff IH DAILY #2 cap.w.dev 06/17/19 The following prescriptions were given: Prednisone 40 mg PO DAILY #30 tab Transmission Status: Pending to [id number] Tiotropium [place] [Spiriva] 2 puff IH DAILY #2 cap.w.dev Transmission Status: Pending to [id number] Budesonide/Formoterol Fumarate [Symbicort 80-4.5 Mcg Inhaler] 2 puff IH BID #2 hfa.aer.ad Transmission Status: Pending to [id number] Azithromycin [Zithromax] 500 mg PO DAILY #3 tab Transmission Status: Pending to [id number] Primary Care Physician: Hugo Francois DO [Primary Care Provider] - Please follow up with your Primary Care Physician in: 1 week. Test Results: Test results from this visit will be discussed in further detail at your follow- up appointment, if applicable.
--- NOTE | 2019-06-17 11:31 | PCM.DC.SUM ---
Discharge Date and Diagnosis Date of Admission: 06/15/19 Date of Discharge: 06/17/19 - Primary Discharge Diagnosis #1 acute COPD exacerbation. #2 hypoxia, resolved. - Secondary Discharge Diagnosis Chronic Problems (Last Updated 06/16/19 @ 08:20 by Alex Garvin MD) Atherosclerotic heart disease of [place] coronary artery without angina pectoris (Chronic) C with PTCA/TETE of the mid and proximal RCA 09/26/2017 Nicotine dependence, cigarettes, uncomplicated (Chronic) HLD (hyperlipidemia) (Chronic) NSTEMI (non-ST elevated myocardial infarction) (Chronic) Cardiac arrest with ventricular fibrillation (Chronic) S/P PTCA (percutaneous transluminal coronary angioplasty) (Chronic 09/26/17) C with PTCA/TETE of the mid and proximal RCA 09/26/2017 Cardiac arrest (Chronic) Hospital Course and Treatment Imaging Results: Clinical Impression(s) from Imaging Studies Chest X-Ray 06/15/19 10:35 IMPRESSION: COPD. No acute findings Electronically Signed: Jr Blunt DO at 11:58 EST Tel , Service support , Operations: None Procedures: None Summary of Care Provided: Patient seen and examined on the day of discharge and appeared to be stable to be discharged home. Her symptoms got better and she has been off oxygen. She was taken for walking pulse oximeter and her pulse ox remained around 90% on ambulation with room air. Her other vital signs were stable. The patient is a 59 year old F patient presented to the emergency room because of worsening shortness of breath, cough and wheezing and she was found to have acute COPD exacerbation with hypoxia. Her chest x-ray showed no acute findings. She was treated with IV steroids, IV Zithromax and bronchodilators. Pneumococcal and Legionella antigen were negative. Respiratory panel for viruses were negative. Sputum culture revealed normal respiratory dianne. Her routine blood work was unremarkable. EKG revealed sinus tachycardia without acute ischemic changes. Troponin was negative. Her TSH was slightly below normal level but her free T4 and total T4 was normal, T3 was slightly low as well. She had no symptoms of hypo-or hyperthyroidism. With above-mentioned treatment, patient symptoms improved and she did well. On the day of discharge, she was taking for ambulatory pulse oximeter and her pulse ox remained around 90% on room air with ambulation. Patient discharged home in a stable medical condition, discharged on prednisone taper over 12 days, discharged on Zithromax for 3 days more to complete total 5 days of treatment, started on Symbicort inhaler as well as Incruse Ellipta once daily, recommended to keep using albuterol inhaler as needed, recommended follow-up with PCP in 1 week. - Physical Exam Vitals/I&O's: Vital Signs Temp Pulse Resp BP Pulse Ox 98.2 F 65 16 117/75 90 06/17/19 08:00 06/17/19 08:09 06/17/19 08:00 06/17/19 08:00 06/17/19 08:08 Oxygen Flow Rate (L/min) 1 Oxygen Delivery Method Room Air Weight: 102 lb 1.184 oz Body Mass Index (BMI) 19.3 Intake and Output for Last 24 Hours 06/15/19 06/16/19 06/17/19 23:59 23:59 23:59 Intake Total 670 / 670 2140 / 2140 255 / 255 Output Total 600 / 600 Balance 670 / 670 2140 / 2140 -345 / -345 General: Alert, Oriented x3, Cooperative, No apparent distress HEENT: Atraumatic, PERRLA, EOMI, Normocephalic Oral: Moist Mucosa, No Gingival or Mucosal Lesions/ Ulcerations Neck: Supple, No JVD, Negative Carotid Bruits, Trachea Midline, Thyroid Normal Size and Texture Lungs: Clear to auscultation, No rhonchi, No wheeze, No rales, Diminished Cardiovascular: Regular rate, Regular Rhythm, Normal S1, Normal S2, PMI Normal Abdomen: Bowel Sounds Present, Soft, Non Tender, Non-Distended, No Hepato-splenomegaly Extremities: No clubbing, No cyanosis, No edema Skin: No rashes, No breakdown Lymphatic: No Cervical, Supraclavicular, or Inguinal Adenopathy Neurological: Cranial nerves II-XII grossly intact, Neuro grossly intact Psych/Mental Status: Normal Affect, Appropriate Microbiology Past 72 Hours 06/15/19 15:30 Sputum, Expectorated/Coughed Gram Stain - Final 06/15/19 15:30 Sputum, Expectorated/Coughed Respiratory Culture - Preliminary Appears to be normal respiratory dianne. Further studies to follow. 06/15/19 14:35 Mucosa - Nasopharyngeal Respiratory Panel (PCR) - Final 06/15/19 16:35 Urine, Clean Catch Streptococcus pneumoniae Antigen (M - Final 06/15/19 16:35 Urine, Clean Catch Legionella Antigen - Final Discharge Activity: Return to Normal Activity Weight Bearing Status: Full weight bearing Call your doctor if you observe: Fever of 101 or Higher, Shortness of breath, Dizziness, Fainting spells, Chest pain, Increased palpitations (irregular heartbeat), Uncontrolled pain Home Medications: Medications to take at Discharge Aspirin [Aspirin, Baby] 81 mg PO DAILY@0800 tab.chew 09/29/17 atorvastatin 80 mg tablet 80 mg PO QHS #90 tab 10/09/18 metoprolol tartrate 25 mg tablet 12.5 mg PO BID #90 tab 10/09/18 sertraline 50 mg tablet 50 mg PO DAILY 12/18/18 Albuterol Aerosols [Ventolin Aerosols] 2.5 mg INHALATION Q2H PRN PRN 30 Days #25 vial.neb. 05/30/19 Albuterol Inhaler [Ventolin Hfa] 1 - 2 puff INHALATION Q4H PRN PRN #1 inhaler 05/30/19 Azithromycin [Zithromax] 500 mg PO DAILY #3 tab 06/17/19 Budesonide/Formoterol Fumarate [Symbicort 80-4.5 Mcg Inhaler] 2 puff IH BID #2 hfa.aer.ad 06/17/19 Prednisone 40 mg PO DAILY #30 tab 06/17/19 Umeclidinium [place] Inhaler [Incruse Ellipta Inhaler] 62.5 mcg IH DAILY #2 blst.w.dev 06/17/19 Following Prescrptions Were Given to Patient: Umeclidinium [place] Inhaler [Incruse Ellipta Inhaler] 62.5 mcg IH DAILY #2 blst.w.dev Transmission Status: Received by [id number] Prednisone 40 mg PO DAILY #30 tab Transmission Status: Received by [id number] Budesonide/Formoterol Fumarate [Symbicort 80-4.5 Mcg Inhaler] 2 puff IH BID #2 hfa.aer.ad Transmission Status: Received by [id number] Azithromycin [Zithromax] 500 mg PO DAILY #3 tab Transmission Status: Received by [id number] Primary Care Physician: Hugo Francois DO [Primary Care Provider] - Please follow up with your Primary Care Physician in: 1 week. Please Follow Up With: Hugo Francois DO When: 1 week Patient Instructions: COPD: Using Inhalers, Treatments for COPD Disposition: Home Minutes spent on discharge:: 27 Patient Condition:: Stable Medical Necessity - Tobacco Use Smoking Status: Former smoker Tobacco Use: Cigarettes Meaningful Use Info Meaningful Use Diagnoses (Choose all that apply): None applicable Code Visit Inpatient E&M: 91568 Disch Hosp
--- NOTE | 2019-06-18 15:15 | CASEMGMT ---
GAVIN DHALIWAL DC PHONE CALL DC DATE: 06.17.19 DC Disposition: HOME Diagnosis on Discharge: COPD exacerbation LACE/STRATA: 06/08 Intro role of CM to patient via phone. Reviewed dc instructions/meds. Pt states she has good understanding, no questions. No care improvement suggestions were given. F/U appointment with Dr. Francois is 06/24/19. No further questions. Jocelyn CR RN ACM
== END 2019-06-17 11:15 | disposition home or self-care (01) | DRG 140 ==
LOC: ED 11:28 → MS3 13:12
PROVIDERS: Admitting Provider Internal Medicine; Emergency Provider Emergency Medicine; Family Provider Family Medicine; PCP Family Medicine; Referring Provider Internal Medicine; Visit Provider Hospitalist
DX: J44.1 Chronic obstructive pulmonary disease with (acute) exacerbation (principal); R09.02 Hypoxemia; Z87.891 Personal history of nicotine dependence; I25.2 Old myocardial infarction; I25.10 Atherosclerotic heart disease of native coronary artery without angina pectoris; Z86.74 Personal history of sudden cardiac arrest; Z98.61 Coronary angioplasty status; Z79.82 Long term (current) use of aspirin; Z79.51 Long term (current) use of inhaled steroids; Z79.899 Other long term (current) drug therapy; E44.0 Moderate protein-calorie malnutrition; Z68.20 Body mass index [BMI] 20.0-20.9, adult; E78.5 Hyperlipidemia, unspecified
CPT/HCPCS: 36415; 71046; 80048; 83735; 84436; 84439; 84443; 84481; 84484; 85025; 87070; 87205; 87449; 87633; 93005; 94640; 97802; 99251; 99285; J7030; J7040; A4216; G0463

== ENCOUNTER → 2019-08-11 08:46 | Outpatient (CLI) | payer MEDICAID, SELFPAY ==
[2017-09-27 08:35] VITALS: BMI 18.0
[2019-07-29 06:41] VITALS: BMI 20.9
[2019-07-31 13:20] VITALS: BMI 20.7
[2019-08-11 09:00] VITALS: PULSE 72; PULSE 79; PULSE 90; PULSE 91; PULSE 92; PULSE 93; PULSE 94; O2SAT 88; O2SAT 89; O2SAT 91; O2SAT 94
--- NOTE | 2019-08-11 09:37 | CPS ---
Pt dropped to 88% at end of [address] Song called and made aware.
--- NOTE | 2019-08-11 14:59 | PCM.PSN.6M ---
PSN 6 Minute Walk Test - 6 Minute Walk Test 6 Minute Walk Test: 6 Minute Walk Test PSN:6-Minute Walk Test Start: 08/11/19 09:32 Freq: Status: Active Protocol: [id number].6MINW Document 08/11/19 09:00 [facility] (Rec: 08/11/19 09:38 [facility] [id number]) 6 Minute Walk Test Date Performed 08/11/19 Time Performed 09:00 Height 5 ft 1 in Weight: 50.349 kg Weight in Pounds 111.[address]: Jairon Song Assistive device used: None Pre-test Oxygen Delivery Method Room Air Pulse Ox (%) 94 Pulse Rate (60-100 beats/min) 79 Dyspnea [place] Scale (0-10) 0.5 Exertion [place] Scale (6-20) 6 1st minute Oxygen Delivery Method Room Air Pulse Ox (%) 91 Pulse Rate (60-100 beats/min) 91 2nd minute Oxygen Delivery Method Room Air Pulse Ox (%) 89 Pulse Rate (60-100 beats/min) 92 3rd minute Oxygen Delivery Method Room Air Pulse Ox (%) 89 Pulse Rate (60-100 beats/min) 94 4th minute Oxygen Delivery Method Room Air Pulse Ox (%) 89 Pulse Rate (60-100 beats/min) 91 5th minute Oxygen Delivery Method Room Air Pulse Ox (%) 89 Pulse Rate (60-100 beats/min) 90 6th minute Oxygen Delivery Method Room Air Pulse Ox (%) 88 Pulse Rate (60-100 beats/min) 93 Dyspnea Susana Scale (0-10) 1 Exertion Susana Scale (6-20) 8 Post-test Oxygen Delivery Method Room Air Pulse Ox (%) 94 Pulse Rate (60-100 beats/min) 72 Full Laps Walked 18 Partial Lap, Number of Tiles Walked 0 Total Distance Walked (ft) 1062 08/11/19 09:37 Cardiopulmonary Services by Meagan Blevins Pt dropped to 88% at end of [address] Song called and made aware. Initialized on 08/11/19 09:37 - END OF NOTE - Interpretation Interpretation: The patient was noted to be 94% on room air at rest. The patient then ambulated until the 6-minute, when patient desaturated to 88%. Patient was placed on 2 L nasal cannula. In total, patient traveled 1062 feet over the course of 6 minutes. These findings are consistent with a respiratory limitation exercise tolerance. - Recommendations Recommendations: The patient tolerates room air at rest, but should be using 2 L nasal cannula with any exertion.
== END ==
PROVIDERS: Family Provider Family Medicine; PCP Family Medicine; Referring Provider Internal Medicine Critical Care Medicine; Visit Provider Internal Medicine Critical Care Medicine
DX: J44.9 Chronic obstructive pulmonary disease, unspecified (principal)
CPT/HCPCS: 94618

== ENCOUNTER → 2019-08-14 06:53 | Outpatient (CLI) | payer MEDICAID, SELFPAY ==
[2017-09-27 08:35] VITALS: BMI 18.0
[2019-07-29 06:41] VITALS: BMI 20.9
[2019-07-31 13:20] VITALS: BMI 20.7
--- NOTE | 2019-08-15 17:00 | PFTCOMP_ITS ---
COMPLETE PULMONARY FUNCTION TEST INTERPRETATION Brief HPI: Patient is a 59 year old female, currently under the care of myself, who presents to [facility] for complete pulmonary function tests secondary to diagnosis of COPD. Respiratory therapist reports good effort and reproducible results. Interpretation: Forced expiration spirometry shows a severe large airways obstructive ventilatory defect with an FEV1 of 47% predicted. There is no significant bronchodilator response by strict ATS criteria. Spirograms are of good quality and plateau slowly, indicating slowly emptying areas of the lungs. The respiratory flow volume loop shows decreased expiratory flow rates at all lung volumes consistent with airway obstruction. Lung volumes by body plethysmography show a normal total lung capacity at 4.27 L, 99% predicted. FRC and RV are elevated out of proportion. Lung volume measurements are consistent with air-trapping. Diffusion capacity by carbon monoxide is decreased at 53% predicted. The airway resistance is elevated. No previous pulmonary function tests were available for review. Impression: Irreversible severe large airways obstructive ventilatory defect with symmetric reduction in diffusion capacity, and a pattern consistent with COPD.
== END ==
PROVIDERS: Family Provider Family Medicine; PCP Family Medicine; Referring Provider Internal Medicine Critical Care Medicine; Visit Provider Internal Medicine Critical Care Medicine
DX: J44.9 Chronic obstructive pulmonary disease, unspecified (principal)
CPT/HCPCS: 94060; 94726; 94729

== ENCOUNTER → 2019-08-19 12:56 | Outpatient (CLI) | payer MEDICAID, SELFPAY ==
[2017-09-27 08:35] VITALS: BMI 18.0
[2019-07-31 13:20] VITALS: BMI 20.7
--- NOTE | 2019-08-19 12:57 | ECHOD_ITS ---
Reason For Study: PHTN Procedure This was a 2D Doppler, Color Flow transthoracic echocardiogram. Exam performed in department. Left Ventricle Normal size and thickness. The estimated ejection fraction is 65 %. Stage 1 diastolic dysfunction. No regional wall motion abnormalities noted. Right Ventricle Normal size and thickness. Normal systolic function. Atria Normal left atrium. Normal right atrium. Normal atrial septum. Mitral Valve The mitral valve is structurally normal. No prolapse or stenosis seen. Tricuspid Valve Normal tricuspid valve. Trivial tricuspid valve insufficiency. Right ventricular systolic pressure estimated to be 25 mmHg. Aortic Valve Trisinus/trileaflet aortic valve. Mild focal aortic valve thickening. There is no aortic stenosis. Pulmonic Valve The pulmonic valve is not well visualized. Great Vessels Normal aortic root. Normal arch. Normal inferior vena cava. Inferior vena cava collapse with sniff. Pericardium/Pleural No pericardial effusion. MMode/2D Measurements & Calculations LVIDd: 3.8 cm IVSd: 0.77 cm LA dimension: 2.5 cm LVIDs: 2.9 cm LVPWd: 0.93 cm RVDd: 3.2 cm FS: 25.2 % LAV(MOD-bp): 38.8 ml LA A4 area: 13.1 cm2 RA A4 area: 11.5 cm2 LAV(MOD-bp) Indexed: 27.0 ml/m2 LAV(MOD-sp2): 35.4 ml LAV(MOD-sp4): 34.6 ml Time Measurements MV dec time: 0.17 sec Doppler Measurements & Calculations MV E max neeraj: 72.3 cm/sec Lat Peak E' Neeraj: 11.0 cm/sec Med Peak E' Neeraj: 9.9 cm/sec MV A max neeraj: 90.6 cm/sec E/E' lat: 6.6 E/E' med: 7.3 MV E/A: 0.80 MV V2 max: 103.5 cm/sec MV P1/2t max neeraj: 102.5 cm/sec Ao V2 max: 140.6 cm/sec MV max P.3 mmHg MV P1/2t: 58.3 msec Ao max P.9 mmHg MV V2 mean: 50.8 cm/sec MV dec slope: 514.9 cm/sec2 Ao V2 mean: 93.2 cm/sec MV mean P.2 mmHg MVA(P1/2t): 3.8 cm2 Ao mean P.9 mmHg MV V2 VTI: 28.0 cm Ao V2 VTI: 30.7 cm LV V1 max: 111.0 cm/sec PA V2 max: 92.5 cm/sec TR max neeraj: 220.9 cm/sec LV V1 max P.9 mmHg TR max P.5 mmHg LV V1 mean P.3 mmHg LV V1 mean: 69.2 cm/sec LV V1 VTI: 25.7 cm Interpretation Summary The estimated ejection fraction is 65 %. Stage 1 diastolic dysfunction. Trivial tricuspid valve insufficiency. Right ventricular systolic pressure estimated to be 25 mmHg. Compared to echo report dated 09/27/2017, no appreciable changes noted. Ordering Physician: Carlos Colindres Referring Physician: Carlos Colindres Performed By: Lucas Rondon, [facility]
== END ==
PROVIDERS: Family Provider Family Medicine; PCP Family Medicine; Referring Provider Internal Medicine Cardiovascular Disease; Visit Provider Internal Medicine Cardiovascular Disease
DX: I25.10 Atherosclerotic heart disease of native coronary artery without angina pectoris (principal); F17.210 Nicotine dependence, cigarettes, uncomplicated; J44.9 Chronic obstructive pulmonary disease, unspecified; I48.91 Unspecified atrial fibrillation; E78.5 Hyperlipidemia, unspecified; Z98.61 Coronary angioplasty status
CPT/HCPCS: 93306

== ENCOUNTER → 2019-08-26 09:17 | Outpatient (CLI) | payer MEDICAID, SELFPAY ==
[2017-09-27 08:35] VITALS: BMI 18.0
[2019-07-31 13:20] VITALS: BMI 20.7
--- NOTE | 2019-08-26 09:19 | STE_ITS ---
Reason For Study: CAD, BUNCH Stress Results Protocol: Dobutamine Stress Echo Maximum Predicted HR: 161 bpm Target HR: 137 bpm % Maximum Predicted HR: 84 % DurationHeart Rate Stage (mm:ss) (bpm) BP Comment Baseline 71 121/64No Chest Pain DSE 10 MCG 3:21 61 123/74No Chest Pain DSE 20 MCG 3:00 118 120/73No Chest Pain DSE 30 MCG 1:47 136 126/78No Chest Pain; Positive N/V Recovery 76 126/78N/V Subsided 3 Minutes Into Recovery Stress Duration: 8:08 mm:ss Maximum Stress HR: 136 bpm METS: 1 Baseline Echocardiogram Findings The estimated ejection fraction is 65 %. Stress Echo Wall motion Data Resting WM Intermediate WM Stress WM Resting Wall Motion Wall Motion Stress No regional wall motion No regional wall motion abnormalities noted. abnormalities noted. EKG Data The baseline ECG displays normal sinus rhythm. The patient was titrated from 10 mcg to a maximun of 30 mcg of dobutamine during the stress. The maximum heart rate attained was 148 beats per minute. This was 91% of maximum predicted heart rate. At peak infusion, upsloping ST changes only were noted, which did not meet the criteria for ischemia. No arrhythmias noted. No clinical angina was noted. Interpretation Summary The estimated ejection fraction is 65 %. Normal, adequate, dobutamine echocardiogram. Negative for ischemia by EKG and echocardiographic criteria. No anginal symptoms noted. No arrhythmias noted. Final LVEF is 75%. Test terminated due to the attainment of target heart rate. Patient was unable to walk on treadmill due to recent 6-minute walk test that was not recommended due to oxygen use. No complications. Ordering Physician: Carlos Colindres Referring Physician: Hugo Francois Performed By: Razia Lawton RDCS
== END ==
PROVIDERS: Family Provider Family Medicine; PCP Family Medicine; Referring Provider Internal Medicine Cardiovascular Disease; Visit Provider Internal Medicine Cardiovascular Disease
DX: I25.10 Atherosclerotic heart disease of native coronary artery without angina pectoris (principal); E78.5 Hyperlipidemia, unspecified; Z98.61 Coronary angioplasty status
CPT/HCPCS: 93017; 93350; J7040; A4216

== ENCOUNTER 2020-03-03 07:57 | Day surgery (SDC) | payer MEDICAID, SELFPAY ==
[2017-09-27 08:35] VITALS: BMI 18.0
[2020-03-01 09:15] VITALS: BMI 22.1
--- NOTE | 2020-03-01 12:08 | HP_ITS ---
HPI HPI History of Present Illness Surgical H&P: Yes Details: Details: INDIA GARCIA, is a 59 yo F who presents to the office today for a cardiovascular outpatient follow-up. Patient has a history of coronary artery disease status post PTCA/TETE to distal and proximal RCA after a ventricular fibrillation outside hospital arrest in September 2017, hyperlipidemia, and tobacco abuse. Patient presented [facility] in September 2017 after a witnessed out of hospital cardiac arrest. Prior to arrest patient stated to her having left-sided arm pain and neck pain. CPR was started by bystanders. Initial rhythm was ventricular fibrillation noted by EMS. Patient underwent defibrillation and intubation. Her initial EKG in the Emergency Department showed sinus rhythm with ST depression. Due to ventricular fibrillation, patient underwent emergent heart catheterization. Patient's heart catheterization showed single-vessel coronary artery disease of the proximal and mid RCA. She underwent successful PTCA/TETE to distal RCA and proximal RCA. Her ejection fraction was noted to be 60%. Her left main was angiographically normal. Her diagonal 1 showed 50% stenosis. Her mid circumflex showed 50% stenosis. Due to this was recommended that she undergo a stress test to evaluate LCx and diagonal lesions. Patient's echocardiogram showed ejection fraction of 65% and normal diastology for age. After being extubated, patient's mental status slowly improved and she was ultimately discharged home. On 11/07/17, the patient underwent dobutamine stress echocardiogram which was negative for inducible ischemia. No additional angioplasty was performed. Patient was recently admitted to [facility] for COPD exacerbation in June 2019 an EKG on 06/15/2019 showed normal sinus rhythm with inferior lateral ST segment depression and possibly consistent with ischemia. She had no chest pain or anginal equivalent symptoms and was subsequently discharged home. I did not see her in consultation. Her most recent echocardiogram dated 08/19/2019 is as follows: The estimated ejection fraction is 65 %. Stage 1 diastolic dysfunction. Trivial tricuspid valve insufficiency. Right ventricular systolic pressure estimated to be 25 mmHg. Compared to echo report dated 09/27/2017, no appreciable changes noted. Her most recent surveillance dobutamine echocardiogram dated 08/26/2019 was negative for inducible ischemia. From a cardiac standpoint she reports occasional exertional substernal chest pain, and has chronic COPD and shortness of breath. She is now on chronic O2 therapy on a regular basis. Interestingly, she can walk in over 700 [address] without oxygen [id number] with no exertional symptoms. However, she occasionally gets exertional chest pain in her middle chest, which lasts several minutes and then resolves. This occurs about 1-2 times per month. She cannot recall the symptoms that she had prior to her V. fib arrest. She is taking and tolerating her medicines well. She successfully quit smoking in November 2017. She was unable to participate in cardiac rehab due to all the events in her family. In our office today her blood pressure is 120/60 and pulse is 64 and regular. Her physical exam is as below. Her lipids as of 12/09/17 show an LDL of 10 and HDL of 69. Her lipids dated 12/09/2018 showed an LDL of 21 and HDL of 70. Repeat lipids are pending. Intake Vital Signs 03/01/20 BP 120/60 03/01/20 Blood Pressure Location Lt brachial 03/01/20 Position Sitting 03/01/20 Respiration 28 H 03/01/20 Pulse 64 03/01/20 Pulse Source Palpation 03/01/20 Height 5 ft 1 in 03/01/20 Weight: 117 lb 03/01/20 BMI 22.1 Intake Visit Reasons: 6 M FU [employer] Required: No Is patient in pain?: No Allergies latex Allergy (Verified 02/12/20 13:00) Rash Penicillins Allergy (Verified 02/12/20 13:00) Hives Medications Aspirin [Aspirin, Baby] 81 mg PO DAILY@0800 tab.chew 09/29/17 [Rx Confirmed 03/01/20] albuterol sulfate 90 mcg/actuation aerosol inhaler 1 - 2 puff INHALATION Q4H PRN PRN #1 inhaler 02/12/20 [Rx Confirmed 03/01/20] umeclidinium 62.5 mcg/actuation blister powder for inhalation 62.5 mcg INHALATION DAILY #30 ea 02/12/20 [Rx Confirmed 03/01/20] cholecalciferol (vitamin D3) 25 mcg (1,000 unit) capsule 25 mcg PO DAILY 03/01/20 [History Confirmed 03/01/20] clopidogrel 75 mg tablet 75 mg PO .COMPLEX #30 tab 03/01/20 [Rx Confirmed 03/01/20] fluticasone 100 mcg-salmeterol 50 mcg/dose blistr powdr for inhalation 1 inh INHALATION BID 03/01/20 [History Confirmed 03/01/20] ibuprofen 200 mg capsule 200 mg PO Q6H PRN 03/01/20 [History Confirmed 03/01/20] metoprolol succinate 25 mg tablet,extended release 24 hr 12.5 mg PO DAILY tab 03/01/20 [History Confirmed 03/01/20] oxygen #1 ea 03/01/20 [History Confirmed 03/01/20] sertraline 100 mg tablet 100 mg PO DAILY 03/01/20 [History Confirmed 03/01/20] PFSH Medical History Depression (Acute) A-fib (Acute) COPD (chronic obstructive pulmonary disease) (Chronic) Atherosclerotic heart disease of [place] coronary artery without angina pectoris (Chronic) Nicotine dependence, cigarettes, uncomplicated (Chronic) HLD (hyperlipidemia) (Chronic) NSTEMI (non-ST elevated myocardial infarction) (Chronic) Cardiac arrest with ventricular fibrillation (Chronic) Cardiac arrest (Chronic) Surgical History Stented coronary artery (Chronic 09/26/17) Hx of exploratory laparotomy (Inactive) S/P excision of lipoma (Inactive) Family History Father Myocardial infarction FH: CABG (coronary artery bypass surgery) Hypertension Diabetes Mother Myocardial infarction FH: CABG (coronary artery bypass surgery) HLD (hyperlipidemia) Diabetes Brother Cancer lung cancer Brother Cancer Penile cancer Brother Cancer Lung cancer Grandmother Colon cancer Social History (Updated 03/01/20 @ 12:[address] Carlos Colindres MD) Smoking Status: Former smoker quit date: 12/03/17 alcohol intake: current alcohol intake frequency: holidays/special occasions only Alcohol type: hard liquor substance use type: marijuana caffeine: Yes Type: carbonated beverages, coffee what type of physical activity do you participate in: none seatbelt use: always do you feel safe at home: Yes ROS Const Const: Negative for fatigue, weakness, body ache, fever(s), headache(s), chills, frequent falls, night sweats, daytime sleepiness, difficulty sleeping, excessive sweating, weight gain, weight loss, increased appetite, poor appetite, anorexia or other Eyes Eyes: Negative for blind spots, loss of peripheral vision, transient loss of vision, blurry vision, change in vision, double vision, floaters, tunnel vision or other ENT ENT: Negative for headache(s), dizziness, hearing loss, tinnitus, Nosebleed/epistaxis, balance problems, post nasal drip, lip swelling, tongue swelling, bleeding gums, hoarseness, neck pain, dry mouth or other Cardio Chest Pain: No Resp Respiratory: Negative for SOB with activity, SOB at rest, SOB orthopnea\SOB lying down, Coughing up blood/hemoptysis, chest congestion, pain on inspiration, snoring, stridor, wheezing, crackles, paroxysmal nocturnal dyspnea or other GI GI: Negative nausea, vomiting, heartburn, constipation, belching, bloating, cramping, vomiting blood/hematemesis, bright, red blood in stools, black,tarry stools, loose stools, Difficulty Swallowing or other : Negative for hematuria, frequent nighttime urination/ nocturia, erectile dysfunction or abnormal vaginal bleeding Musc Musc: Negative for muscle aches/ myalgia, muscle weakness, joint pain or balance problems Skin Skin: Negative redness, non-healing lesions, rash, unusual bruising, skin ulcer, wounds, jaundice or other Neuro Neuro: Negative for dizziness, lightheadedness, near syncope, syncope, orthostatic symptoms, frequent falls, headache(s), weakness, confusion, memory loss, restless legs, blurry vision, double vision, vertigo, seizures, lack of coordination or other Anjel Hematologic/Lymphatic: Negative for easy bleeding, easy bruising, enlarged lymph nodes or other Endo Endo: Negative for fatigue, cold intolerance, heat intolerance, excessive sweating, flushing, increased thirst/drinking, increased hunger, hair loss, hair growth or other Psych Psych: Negative for anxiety, depression, thoughts of harming anyone, thoughts of harming yourself, visual hallucinations, panic attacks or audible hallucinations Allergy Allergy/Immunology: Negative for throat swelling, Negative for tongue swelling, Negative for hives, Negative for rash, Negative for lip swelling Cardiology Exam Const Appearance: cooperative, healthy appearing and no acute distress Nutritional Appearance: well nourished Orientation: alert, oriented x3 and oriented to person Head Head: normal to inspection, normocephalic and atraumatic Nose: external nose normal Face and Sinus: face symmetric Mouth: oral mucosae normal Eyes General: appearance normal, both eyes and all related structures Eyelids: eyelids normal Conjunctivae: conjunctivae normal Pupils: PERRL and normal by confrontation EOM: EOM intact bilaterally Neck Neck: normal visual inspection and full ROM Carotids: normal carotid upstroke Chest Chest inspection: normal inspection of the chest Auscultation: Bilateral: Clear to Auscultation Cardio Palpation: normal PMI Rate: regular rate Rhythm: regular rhythm Heart sounds: S1 normal and S2 normal GI GI: normal to inspection, no hepatosplenomegaly and bowel sounds present Neuro General: alert, awake, oriented x3, CN's II-XI intact bilaterally and moves all extremities Skin Skin: no rashes or lesions noted Extremities Pulses: Normal: Right Femoral Pulse, Left Femoral Pulse, Right Dorsalis Pedis Pulse, Left Dorsalis Pedis Pulse, Right Posterior Tibial Pulse, Left Posterior Tibial Pulse, Right Radial Pulse, Left Radial Pulse Lower Extremity Edema: None: Bilateral Psych Psychological: normal affect Assessment & Plan 1. Atherosclerotic heart disease of [place] coronary artery without angina pectoris I25.10 [facility] with PTCA/TETE of the mid and proximal RCA 09/26/2017 Plan 1. Coronary artery disease: Patient complains of occasional exertional type chest pain, which last several minutes, then resolves on its own. She is currently on chronic O2 therapy, and due to her cardiac arrest she does not recall the symptoms that she had prior to her previous inferior wall myocardial infarction. She most recently had a dobutamine echocardiogram in August 2019, which was negative for inducible ischemia. I reviewed the patient's catheterization films from 2017 at which time we placed 2 stents in her mid and proximal RCA, and she had a long tubular mid left circumflex stenosis at the bifurcation of an obtuse marginal, and a 50% stenosis in the proximal portion of a small diagonal branch. I explained the patient that sometimes the stress test has difficulty seeing the left circumflex territory, and given her constellation of symptoms, chest pain, previous myocardial infarction with unknown symptoms, and for the fact the patient wishes to have peace of mind that she has patent arteries and stents, I recommended that she undergo a left heart catheterization. She will be loaded with Plavix 300 mg x 1 now followed by 75 mg daily. The risk/benefits of the procedure were thoroughly explained the patient including specific attention to lack of onsite surgical backup, and the patient is agreed to proceed. If we find the patient has widely patent RCA stents, she may benefit from FFR evaluation of her left circumflex and/or her diagonal branch. In the meantime she will continue her baby aspirin, loaded with Plavix, and continue metoprolol. Orders Orders: 12 Lead EKG performed by [facility] Today 2. A-fib I48.91 Plan 2. Atrial fibrillation: The patient had paroxysmal atrial fibrillation teresa- procedurally and denies any palpitations at this time. 3. Mixed hyperlipidemia E78.5 Plan 3. Hyperlipidemia: We are awaiting a repeat lipid profile. Her LDL should be less than 70. She did not tolerate Lipitor due to severe myalgias. We will start her on gemfibrozil 600 mg p.o. twice daily and repeat lipid profile in 6 weeks time. 4. Return office in 6 months. This note was generated using a voice recognition system and there may be incorrect words, spelling or punctuation that were not noted when reviewing the office note prior to saving. Plan Detail Other Orders Orders: 12 Lead EKG performed by [facility] Today R06.00, R07.9, Z86.74 Other Medications New: clopidogrel (Plavix) 75 mg PO 4 tablets (300 mg) all at once today, then 1 tablet daily for heart cath 03/03/20; 30 tabs 3RF Follow Up +6M (Colindres) Coding Level of Care Code Off vis,est,level 3 Diagnoses Atherosclerotic heart disease of [place] coronary artery without angina pectoris I25.10 A-fib I48.91 Mixed hyperlipidemia E78.5 Coding Level of Care Code Off vis,est,level 3 Diagnoses Atherosclerotic heart disease of [place] coronary artery without angina pectoris I25.10 A-fib I48.91 Mixed hyperlipidemia E78.5 Supplemental Info Supplemental Information Labs LDL Cholesterol 21 mg/dL (0-130) 12/09/18 HDL Cholesterol 70 mg/dL (40-) 12/09/18 Triglycerides 135 mg/dL (-199) 12/09/18 VLDL Cholesterol 27 mg/dL (5-40) 12/09/18 Diagnostics Electrocardiogram 06/15/19 Echocardiogram 08/19/19 Stress Echocardiogram 08/26/19 Chest X-Ray 06/15/19 Pulmonary Pulmonary Function Test 08/15/19 Pulmonary Exercise Test 01/06/20 07/27/20 1208 <Electronically signed by Carlos Colindres MD> Date _ Carlos Colindres MD
--- NOTE | 2020-03-01 13:00 | RAD_ITS ---
STUDY: X-RAY CHEST REASON FOR EXAM: Female, 59 years old. Chest pain/pressure pre-heart cath chest x-ray. TECHNIQUE: PA and lateral views of the chest. COMPARISON: 06/15/2019 FINDINGS: The lungs are hyperexpanded without a superimposed acute pulmonary process. There is no demonstrated pleural abnormality. Normal size heart. Normal mediastinum and luly. Normal visualized pulmonary arteries. Normal visualized aortic arch and descending thoracic aorta. There are diffuse degenerative changes of the visualized thoracic spine. Normal visualized ribs, clavicles, and shoulders. There is no demonstrated abnormality of the visualized soft tissue structures of the upper abdomen. RAD/Chest PA and Lateral IMPRESSION: Hyperexpanded lungs, no superimposed acute pulmonary process. Electronically Signed: Josh Crump MD at 14:27 EDT , Service support ,
[2020-03-01 14:02] LABS: Hematocrit 44.1 % (37-47); Hemoglobin 14.1 g/dL (12.0-15.0); Mean Corpuscular Volume 96.9 fL (81-99); Mean Platelet Vol. 8.2 fl (6.2-12.0); Platelet Count 323 K/mm3 (150-450); RBC Distribution Width CV 14.7 % (11.6-14.6); RBC Distribution Width SD 52.3 fl (35.1-43.9); Red Blood Count 4.55 M/mm3 (4.2-5.4); White Blood Count 7.3 K/mm3 (4.4-11.0)
[2020-03-01 14:09] LABS: International Normalized Ratio 0.9; Prothrombin Time (Protime)PT. 11.4 SECONDS (11.7-14.9)
[2020-03-01 14:10] LABS: Partial Thromboplast Time 35.3 Seconds (24.1-36.2)
[2020-03-01 15:10] LABS: Anion Gap 5 (5-15); BUN 11 mg/dL (7-18); BUN/Creat Ratio 11.8 RATIO (10-20); Calcium,Total 9.3 mg/dL (8.5-10.1); Chloride 105 mmol/L (98-107); Creatinine, Serum 0.93 mg/dL (0.55-1.02); EST Glomerular Filtration Rate 65 mL/min (>60); Est Glom Filt Rate - Afr Amer 79 mL/min (>60); Glucose 92 mg/dL (74-106); Potassium 4.1 mmol/L (3.5-5.1); Sodium Level 139 mmol/L (136-145)
[2020-03-02 09:39] VITALS: BMI 22.1
--- NOTE | 2020-03-03 09:37 | PCM.HP.BLA ---
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 Hugo Francois, DO Status: PRE [facility] HPI HPI History of Present Illness Surgical H&P: Yes Details: Details: INDIA GARCIA, is a 59 yo F who presents to the office today for a cardiovascular outpatient follow-up. Patient has a history of coronary artery disease status post PTCA/TETE to distal and proximal RCA after a ventricular fibrillation outside hospital arrest in September 2017, hyperlipidemia, and tobacco abuse. Patient presented [facility] in September 2017 after a witnessed out of hospital cardiac arrest. Prior to arrest patient stated to her having left-sided arm pain and neck pain. CPR was started by bystanders. Initial rhythm was ventricular fibrillation noted by EMS. Patient underwent defibrillation and intubation. Her initial EKG in the Emergency Department showed sinus rhythm with ST depression. Due to ventricular fibrillation, patient underwent emergent heart catheterization. Patient's heart catheterization showed single-vessel coronary artery disease of the proximal and mid RCA. She underwent successful PTCA/TETE to distal RCA and proximal RCA. Her ejection fraction was noted to be 60%. Her left main was angiographically normal. Her diagonal 1 showed 50% stenosis. Her mid circumflex showed 50% stenosis. Due to this was recommended that she undergo a stress test to evaluate LCx and diagonal lesions. Patient's echocardiogram showed ejection fraction of 65% and normal diastology for age. After being extubated, patient's mental status slowly improved and she was ultimately discharged home. On 11/07/17, the patient underwent dobutamine stress echocardiogram which was negative for inducible ischemia. No additional angioplasty was performed. Patient was recently admitted to [facility] for COPD exacerbation in June 2019 an EKG on 06/15/2019 showed normal sinus rhythm with inferior lateral ST segment depression and possibly consistent with ischemia. She had no chest pain or anginal equivalent symptoms and was subsequently discharged home. I did not see her in consultation. Her most recent echocardiogram dated 08/19/2019 is as follows: The estimated ejection fraction is 65 %. Stage 1 diastolic dysfunction. Trivial tricuspid valve insufficiency. Right ventricular systolic pressure estimated to be 25 mmHg. Compared to echo report dated 09/27/2017, no appreciable changes noted. Her most recent surveillance dobutamine echocardiogram dated 08/26/2019 was negative for inducible ischemia. From a cardiac standpoint she reports occasional exertional substernal chest pain, and has chronic COPD and shortness of breath. She is now on chronic O2 therapy on a regular basis. Interestingly, she can walk in over [address] without oxygen [id number] with no exertional symptoms. However, she occasionally gets exertional chest pain in her middle chest, which lasts several minutes and then resolves. This occurs about 1-2 times per month. She cannot recall the symptoms that she had prior to her V. fib arrest. She is taking and tolerating her medicines well. She successfully quit smoking in November 2017. She was unable to participate in cardiac rehab due to all the events in her family. In our office today her blood pressure is 120/60 and pulse is 64 and regular. Her physical exam is as below. Her lipids as of 12/09/17 show an LDL of 10 and HDL of 69. Her lipids dated 12/09/2018 showed an LDL of 21 and HDL of 70. Repeat lipids are pending. Intake Vital Signs 03/01/20 BP 120/60 03/01/20 Blood Pressure Location Lt brachial 03/01/20 Position Sitting 03/01/20 Respiration 28 H 03/01/20 Pulse 64 03/01/20 Pulse Source Palpation 03/01/20 Height 5 ft 1 in 03/01/20 Weight: 117 lb 03/01/20 BMI 22.1 Intake Visit Reasons: 6 M FU Forger Helper Required: No Is patient in pain?: No Allergies latex Allergy (Verified 02/12/20 13:00) Rash Penicillins Allergy (Verified 02/12/20 13:00) Hives Medications Aspirin [Aspirin, Baby] 81 mg PO DAILY@0800 tab.chew 09/29/17 [Rx Confirmed 03/01/20] albuterol sulfate 90 mcg/actuation aerosol inhaler 1 - 2 puff INHALATION Q4H PRN PRN #1 inhaler 02/12/20 [Rx Confirmed 03/01/20] umeclidinium 62.5 mcg/actuation blister powder for inhalation 62.5 mcg INHALATION DAILY #30 ea 02/12/20 [Rx Confirmed 03/01/20] cholecalciferol (vitamin D3) 25 mcg (1,000 unit) capsule 25 mcg PO DAILY 03/01/20 [History Confirmed 03/01/20] clopidogrel 75 mg tablet 75 mg PO .COMPLEX #30 tab 03/01/20 [Rx Confirmed 03/01/20] fluticasone 100 mcg-salmeterol 50 mcg/dose blistr powdr for inhalation 1 inh INHALATION BID 03/01/20 [History Confirmed 03/01/20] ibuprofen 200 mg capsule 200 mg PO Q6H PRN 03/01/20 [History Confirmed 03/01/20] metoprolol succinate 25 mg tablet,extended release 24 hr 12.5 mg PO DAILY tab 03/01/20 [History Confirmed 03/01/20] oxygen #1 ea 03/01/20 [History Confirmed 03/01/20] sertraline 100 mg tablet 100 mg PO DAILY 03/01/20 [History Confirmed 03/01/20] [facility] Medical History Depression (Acute) A-fib (Acute) COPD (chronic obstructive pulmonary disease) (Chronic) Atherosclerotic heart disease of chip[place] coronary artery without angina pectoris (Chronic) Nicotine dependence, cigarettes, uncomplicated (Chronic) HLD (hyperlipidemia) (Chronic) NSTEMI (non-ST elevated myocardial infarction) (Chronic) Cardiac arrest with ventricular fibrillation (Chronic) Cardiac arrest (Chronic) Surgical History Stented coronary artery (Chronic 09/26/17) Hx of exploratory laparotomy (Inactive) S/P excision of lipoma (Inactive) Family History Father Myocardial infarction FH: CABG (coronary artery bypass surgery) Hypertension Diabetes Mother Myocardial infarction FH: CABG (coronary artery bypass surgery) HLD (hyperlipidemia) Diabetes Brother Cancer lung cancer Brother Cancer Penile cancer Brother Cancer Lung cancer Grandmother Colon cancer Social History (Updated 03/01/20 @ 12:[address] Carlos Colindres MD) Smoking Status: Former smoker quit date: 12/03/17 alcohol intake: current alcohol intake frequency: holidays/special occasions only Alcohol type: hard liquor substance use type: marijuana caffeine: Yes Type: carbonated beverages, coffee what type of physical activity do you participate in: none seatbelt use: always do you feel safe at home: Yes ROS Const Const: Negative for fatigue, weakness, body ache, fever(s), headache(s), chills, frequent falls, night sweats, daytime sleepiness, difficulty sleeping, excessive sweating, weight gain, weight loss, increased appetite, poor appetite, anorexia or other Eyes Eyes: Negative for blind spots, loss of peripheral vision, transient loss of vision, blurry vision, change in vision, double vision, floaters, tunnel vision or other ENT ENT: Negative for headache(s), dizziness, hearing loss, tinnitus, Nosebleed/epistaxis, balance problems, post nasal drip, lip swelling, tongue swelling, bleeding gums, hoarseness, neck pain, dry mouth or other Cardio Chest Pain: No Resp Respiratory: Negative for SOB with activity, SOB at rest, SOB orthopnea\SOB lying down, Coughing up blood/hemoptysis, chest congestion, pain on inspiration, snoring, stridor, wheezing, crackles, paroxysmal nocturnal dyspnea or other GI GI: Negative nausea, vomiting, heartburn, constipation, belching, bloating, cramping, vomiting blood/hematemesis, bright, red blood in stools, black,tarry stools, loose stools, Difficulty Swallowing or other : Negative for hematuria, frequent nighttime urination/ nocturia, erectile dysfunction or abnormal vaginal bleeding Musc Musc: Negative for muscle aches/ myalgia, muscle weakness, joint pain or balance problems Skin Skin: Negative redness, non-healing lesions, rash, unusual bruising, skin ulcer, wounds, jaundice or other Neuro Neuro: Negative for dizziness, lightheadedness, near syncope, syncope, orthostatic symptoms, frequent falls, headache(s), weakness, confusion, memory loss, restless legs, blurry vision, double vision, vertigo, seizures, lack of coordination or other Anjel Hematologic/Lymphatic: Negative for easy bleeding, easy bruising, enlarged lymph nodes or other Endo Endo: Negative for fatigue, cold intolerance, heat intolerance, excessive sweating, flushing, increased thirst/drinking, increased hunger, hair loss, hair growth or other Psych Psych: Negative for anxiety, depression, thoughts of harming anyone, thoughts of harming yourself, visual hallucinations, panic attacks or audible hallucinations Allergy Allergy/Immunology: Negative for throat swelling, Negative for tongue swelling, Negative for hives, Negative for rash, Negative for lip swelling Cardiology Exam Const Appearance: cooperative, healthy appearing and no acute distress Nutritional Appearance: well nourished Orientation: alert, oriented x3 and oriented to person Head Head: normal to inspection, normocephalic and atraumatic Nose: external nose normal Face and Sinus: face symmetric Mouth: oral mucosae normal Eyes General: appearance normal, both eyes and all related structures Eyelids: eyelids normal Conjunctivae: conjunctivae normal Pupils: PERRL and normal by confrontation EOM: EOM intact bilaterally Neck Neck: normal visual inspection and full ROM Carotids: normal carotid upstroke Chest Chest inspection: normal inspection of the chest Auscultation: Bilateral: Clear to Auscultation Cardio Palpation: normal PMI Rate: regular rate Rhythm: regular rhythm Heart sounds: S1 normal and S2 normal GI GI: normal to inspection, no hepatosplenomegaly and bowel sounds present Neuro General: alert, awake, oriented x3, CN's II-XI intact bilaterally and moves all extremities Skin Skin: no rashes or lesions noted Extremities Pulses: Normal: Right Femoral Pulse, Left Femoral Pulse, Right Dorsalis Pedis Pulse, Left Dorsalis Pedis Pulse, Right Posterior Tibial Pulse, Left Posterior Tibial Pulse, Right Radial Pulse, Left Radial Pulse Lower Extremity Edema: None: Bilateral Psych Psychological: normal affect Assessment & Plan 1. Atherosclerotic heart disease of chip[place] coronary artery without angina pectoris I25.10 [facility] with PTCA/TETE of the mid and proximal RCA 09/26/2017 Plan 1. Coronary artery disease: Patient complains of occasional exertional type chest pain, which last several minutes, then resolves on its own. She is currently on chronic O2 therapy, and due to her cardiac arrest she does not recall the symptoms that she had prior to her previous inferior wall myocardial infarction. She most recently had a dobutamine echocardiogram in August 2019, which was negative for inducible ischemia. I reviewed the patient's catheterization films from 2017 at which time we placed 2 stents in her mid and proximal RCA, and she had a long tubular mid left circumflex stenosis at the bifurcation of an obtuse marginal, and a 50% stenosis in the proximal portion of a small diagonal branch. I explained the patient that sometimes the stress test has difficulty seeing the left circumflex territory, and given her constellation of symptoms, chest pain, previous myocardial infarction with unknown symptoms, and for the fact the patient wishes to have peace of mind that she has patent arteries and stents, I recommended that she undergo a left heart catheterization. She will be loaded with Plavix 300 mg x 1 now followed by 75 mg daily. The risk/benefits of the procedure were thoroughly explained the patient including specific attention to lack of onsite surgical backup, and the patient is agreed to proceed. If we find the patient has widely patent RCA stents, she may benefit from FFR evaluation of her left circumflex and/or her diagonal branch. In the meantime she will continue her baby aspirin, loaded with Plavix, and continue metoprolol. Orders Orders: 12 Lead EKG performed by [facility] Today 2. A-fib I48.91 Plan 2. Atrial fibrillation: The patient had paroxysmal atrial fibrillation teresa-procedurally and denies any palpitations at this time. 3. Mixed hyperlipidemia E78.5 Plan 3. Hyperlipidemia: We are awaiting a repeat lipid profile. Her LDL should be less than 70. She did not tolerate Lipitor due to severe myalgias. We will start her on gemfibrozil 600 mg p.o. twice daily and repeat lipid profile in 6 weeks time. 4. Return office in 6 months. This note was generated using a voice recognition system and there may be incorrect words, spelling or punctuation that were not noted when reviewing the office note prior to saving. Plan Detail Other Orders Orders: 12 Lead EKG performed by [facility] Today R06.00, R07.9, Z86.74 Other Medications New: clopidogrel (Plavix) 75 mg PO 4 tablets (300 mg) all at once today, then 1 tablet daily for heart cath 03/03/20; 30 tabs 3RF Follow Up +6M (Jens) Coding Level of Care Code Off vis,est,level 3 Diagnoses Atherosclerotic heart disease of [place] coronary artery without angina pectoris I25.10 A-fib I48.91 Mixed hyperlipidemia E78.5 Coding Level of Care Code Off vis,est,level 3 Diagnoses Atherosclerotic heart disease of [place] coronary artery without angina pectoris I25.10 A-fib I48.91 Mixed hyperlipidemia E78.5 Supplemental Info Supplemental Information Labs LDL Cholesterol 21 mg/dL (0-130) 12/09/18 HDL Cholesterol 70 mg/dL (40-) 12/09/18 Triglycerides 135 mg/dL (-199) 12/09/18 VLDL Cholesterol 27 mg/dL (5-40) 12/09/18 Diagnostics Electrocardiogram 06/15/19 Echocardiogram 08/19/19 Stress Echocardiogram 08/26/19 Chest X-Ray 06/15/19 Pulmonary Pulmonary Function Test 08/15/19 Pulmonary Exercise Test 08/11/19 03/01/20 1208 <Electronically signed by Carlos Colindres MD> Date Carlos Colindres MD 03/02/20 1026 <Electronically signed by Carlos Colindres MD> Date: Time: Carlos Colindres MD CC: Dr. Carlos Colindres MD; Dr. Hugo Francois DO ~ Date Dictated: 03/01/20 1208 Date Transcribed: 03/01/20 1254 Tightener: NR Signed carroting machine offbearer addendum: Patient seen and examined on day of admission, and the risk/benefits of the procedure were thoroughly explained the patient and informed consent was obtained with specific attention to lack of onsite surgical backup. Left heart catheterization to follow.
--- NOTE | 2020-03-03 10:11 | CL.D_ITS ---
Patient Name: INDIA GARCIA Study Date: 03/03/2020 Performing: Carlos Colindres MD Ht: 61.02 inches 155 cm : 1960 Wt: 116.84 lbs 53 kg Age: 59 Gender: female BSA: 1.5 PROCEDURE(S) PERFORMED NK52-XII/COR/LV CLINICAL PROFILE AND INDICATIONS Indications: Stable Known CAD Heart Failure: None Stress/Imaging Date: 08/26/2019Stress Echocardiogram: Negative Angina Classification Anginal Classification w/in 2 Weeks: Anginal Equivalent Dyspnea CAD Presentations: Symptom unlikely to be ischemic. Comorbidities/Risk Factors: Hypertension Dyslipidemia Prior NM Prior PCI Chronic Lung Disease CONCLUSIONS Non obstructive coronary arteries Perserved Left Ventricular systolic function with normal EDP RECOMMENDATIONS Management as per referring Party Plan Dealer Medical management of mid LCX; looks about the same as 2018. Pt is able to walk over [address] back and forth without oxygen and has no anginal symptoms. Manual sheath removal. DESCRIPTION OF PROCEDURE The patient arrived to the procedure lab. The risks and benefits of the procedure as well as a full d escription of our services here and current unavailability of surgical backup were fully explained to the patient and/or their significant other prior to the catheterization. The Timeout was completed, verifying the correct patient and procedure. The patient's procedural site was prepped and draped in the usual fashion. Local anesthetic was given subcutaneously to right groin region with Lidocaine 2%. Using a modified Seldinger technique, arterial access was obtained via the right femoral artery, a 4 Fr sheath was inserted Left Coronary Artery selective angiography was performed in multiple views us ing a 4 Fr. JL5 catheter. Right Coronary Artery selective angiography was then performed in multiple views using a 4 Fr. 3DRC catheter. Left Ventriculography was performed in HARDING projection using a 4 Fr . Pigtail catheter. LV to AO pullback pressures were then recorded.The arterial sheath was pulled and manual compression applied until hemostasis is achieved. CORONARY ANGIOGRAPHY DOMINANCE: Right Dominant LEFT HEART ASSESSMENT Left Ventricular Ejection Fraction: by LV Gram 65 % Normal LV wall motion Normal Left Ventricular systolic function LEFT MAIN: Angiographically normal LEFT ANTERIOR DESCENDING ARTERY: Angiographically normal CIRCUMFLEX ARTERY: MID CIRC: Moderate luminal irregularities up to 50% RIGHT CORONARY ARTERY: Previously placed stent is patent COMPLICATIONS No Complications PROCEDURE MEDICATIONS Versed 1 mg IV Oxygen: 2 L/min via nasal cannula Nitro 200 mcg IC 03/03/2020 09:47:15 SUMMARY OF HEMODYNAMIC DATA Time AIR REST ECG 08:15:06 AO 113/57 (78) SA 09:45:07 LV 114/-12, 9 09:51:46 LV 109/-11, 3 09:51:52 LVp 126/-15, 10 09:51:58 AOp 113/58 (80) 09:52:03 Signed By Carlos Colindres MD On 03/03/2020 10:10:23 Carlos Colindres MD
== END 2020-03-03 14:22 | disposition home or self-care (01) ==
PROVIDERS: PCP Family Medicine; Referring Provider Internal Medicine Cardiovascular Disease; Visit Provider Internal Medicine Cardiovascular Disease
DX: I25.10 Atherosclerotic heart disease of native coronary artery without angina pectoris (principal); E78.2 Mixed hyperlipidemia; J44.9 Chronic obstructive pulmonary disease, unspecified; I25.2 Old myocardial infarction; F32.9 Major depressive disorder, single episode, unspecified; I48.0 Paroxysmal atrial fibrillation; Z95.5 Presence of coronary angioplasty implant and graft; Z87.891 Personal history of nicotine dependence; Z86.74 Personal history of sudden cardiac arrest; Z79.82 Long term (current) use of aspirin; Z79.899 Other long term (current) drug therapy; Z79.02 Long term (current) use of antithrombotics/antiplatelets; Z79.51 Long term (current) use of inhaled steroids; Z99.81 Dependence on supplemental oxygen; J96.11 Chronic respiratory failure with hypoxia; I10 Essential (primary) hypertension
CPT/HCPCS: 36415; 71046; 80048; 85027; 85610; 85730; 93458; 99152; 99153; J7040; Q9967; C1769; C1894

== ENCOUNTER 2020-03-08 14:27 | Emergency (ER) | payer MEDICAID, SELFPAY ==
[2017-09-27 08:35] VITALS: BMI 18.0
[2020-03-02 09:39] VITALS: BMI 22.1
[2020-03-08 14:30] VITALS: BP 140/97; PULSE 81; RESP 17; TEMP 36.2; O2SAT 98; BMI 21.4
--- NOTE | 2020-03-08 14:48 | ED.DCSUM_ITS ---
History of Present Illness Chief Complaint: Complaint Detail of Chief Complaint: Dysuria, diarrhea Informant: Patient Onset: Days Narrative: Patient presents secondary to dysuria and diarrhea. She states she started 2 new medications last week, gemfibrozil and Plavix. 2 days later she developed diarrhea. On the she developed dysuria and frequency. She reports intermittent pain across her kidneys bilaterally. She reports having hot flashes but no measured fever. Last night she had some nausea and vomiting as well. - Past Medical History (1) Depression Status: Chronic (2) Atherosclerotic heart disease of kaw coronary artery without angina pectoris Status: Chronic Comment: [facility] with PTCA/TETE of the mid and proximal RCA 09/26/2017 (3) COPD (chronic obstructive pulmonary disease) Status: Chronic (4) HLD (hyperlipidemia) Status: Chronic (5) History of sudden cardiac arrest successfully resuscitated Status: Chronic Comment: V fib arrest (6) NSTEMI (non-ST elevated myocardial infarction) Status: Chronic (7) Stage 3 severe COPD by GOLD classification Status: Chronic Comment: FEV1 47% (8) Stented coronary artery Status: Chronic Comment: [facility] with PTCA/TETE of the mid and proximal RCA 09/26/2017 (9) 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 Past Medical History - Allergies and Home Meds Allergies/Adverse Reactions: Allergies latex Allergy (Verified 03/08/20 14:29) Rash Penicillins Allergy (Verified 03/08/20 14:29) Hives Primary Care Physician: Hugo Francois DO [Primary Care Provider] - Prior records reviewed: Yes Surgical History: noncontributory Lives: Spouse/ Significant Other Smoking Status: Former smoker - Family History Maternal Family History: Family History (Last Reviewed 03/01/20 @ 09:16 by Herlinda Dc) Father Myocardial infarction FH: CABG (coronary artery bypass surgery) Hypertension Diabetes Mother Myocardial infarction FH: CABG (coronary artery bypass surgery) HLD (hyperlipidemia) Diabetes Brother Cancer Brother Cancer Brother Cancer Grandmother Colon cancer Family History: Reports: Unknown Paternal Family History: Family History (Last Reviewed 03/01/20 @ 09:16 by Herlinda Dc) Father Myocardial infarction FH: CABG (coronary artery bypass surgery) Hypertension Diabetes Mother Myocardial infarction FH: CABG (coronary artery bypass surgery) HLD (hyperlipidemia) Diabetes Brother Cancer Brother Cancer Brother Cancer Grandmother Colon cancer Family History: Reports: Unknown Review of Systems General: Denies: Chills, Fever Eyes: Denies: Visual changes - bilaterally ENT: Denies: Bilateral ear pain Cardiovascular: Denies: Chest pain Respiratory: Denies: Dyspnea Gastrointestinal: Reports: Abdominal pain, Nausea, Vomiting, Diarrhea Genitourinary: Reports: Dysuria Musculoskeletal: Reports: Back pain. Denies: Extremity Pain Skin: Denies: Rash Hematologic: Denies: Easy bruising, Easy bleeding Allergy: Denies: Uticaria Physical Exam Vital Signs/Narrative: Vital Signs Temp Pulse Resp BP Pulse Ox 03/08/20 14:30 97.1 F L 81 17 140/97 H 98 Inital Vital Signs reviewed: Yes General: Well nourished, Well developed Head: Normocephalic ENT: Moist mucous membranes Neck: Supple Cardiovascular: Regular rate, Regular rhythm Respiratory: No distress, CTA bilaterally Abdomen: Soft, Tender - Mild suprapubic tenderness., Hypoactive bowel sounds. Negative for: Guarding, Rebound tenderness Extremities: Nontender, No edema Skin: Normal color Neurological: Alert, Oriented x3 Psychological: Normal affect Diagnostic/Tx/Re-eval Laboratory Results 03/08/20 03/08/20 03/08/20 16:10 16:10 16:10 WBC 9.8 RBC 4.44 Hgb 13.8 Hct 41.2 MCV 92.8 MCH 31.1 MCHC 33.5 RDW Std Deviation 47.8 H RDW Coeff of Obie 14.1 Plt Count 293 MPV 8.7 Immature Gran % (Auto) 0.200 Neut % (Auto) 74.0 H Lymph % (Auto) 14.4 L [place] % (Auto) 8.1 Eos % (Auto) 2.9 Baso % (Auto) 0.4 Absolute Neuts (auto) 7.2 Absolute Lymphs (auto) 1.41 Nucleated RBC % 0 Sodium 137 Potassium 3.3 L Chloride 103 Carbon Dioxide 27.0 Anion Gap 7 BUN 15 Creatinine 0.87 Estim Creat Clear Calc 52.54 Est GFR (MDRD) Af Amer 85 Est GFR (MDRD) Non-Af 70 BUN/Creatinine Ratio 17.2 Glucose 101 Calcium 9.6 Urine Color Yellow Urine Clarity Cloudy Urine pH 6.0 Ur Specific [place] 1.010 Urine Protein 100 H Urine Glucose (UA) Normal Urine Ketones 15 H Urine Occult Blood 250 H Urine Nitrite Positive H Urine Bilirubin Negative Urine Urobilinogen Normal Ur Leukocyte Esterase 500 H Urine RBC 25-50 SEEN Urine WBC >100 SEEN Ur Squamous Epith Cells 0-5 SEEN Amorphous Sediment 1+ URATE Urine Bacteria 2+ Urine Mucus 0 SEEN - Medical Decision Making Patient was given Zofran and IV fluids here. Repeat evaluation she is resting comfortably. Test results are discussed with her. She does have evidence of significant UTI. Urine culture will be sent and should be treated the 5-day course of Bactrim. I will also write her for some Zofran to help with nausea as needed. Patient's symptoms did start after she developed diarrhea, which started 2 days after starting gemfibrozil. This is a common side effect of this medication. She was encouraged to contact her physician to see if there was another medication option for her. ED Disposition - Plan for ED Patient: Disposition: Home or Assisted Living Diagnosis: UTI (urinary tract infection), Diarrhea, Vomiting Instructions: ED Nausea Vomiting Adult, ED CYSTITIS Female Adult Prescriptions: Smz/Tmp Ds [Bactrim Ds] 1 tab PO BID #10 tab Transmission Status: Pending to [id number] Ondansetron [Zofran Odt] 4 mg PO Q8H PRN PRN #10 tab PRN Reason: Nausea Transmission Status: Pending to [id number] Referrals: Hugo Francois DO [Primary Care Provider] - 1 Week
[2020-03-08 16:12] VITALS: RESP 18
[2020-03-08] MEDS: 0.9% Normal Saline 1,000 ML 150 ML IV (16:15)
[2020-03-08] MEDS: Ondansetron 4 MG/2 ML Vial IV (16:15)
[2020-03-08 16:22] LABS: Mucous, Urine 0 SEEN /hpf (<or=2+)
[2020-03-08 16:26] LABS: Color, Urine Yellow (Yellow); Glucose, Dipstick Normal (Normal); Ketone-Dipstick 15 mg/dl (Negative); Leukocyte Esterase-Dipstick 500 /ul (Negative); Nitrite-Dipstick Positive (Negative); Occult Blood-Urine 250 /ul (Negative); Protein-Dipstick 100 mg/dl (Negative); Urine Bilirubin Dipstick Negative (Negative); Urine Clarity Cloudy (Clear); Urine Urobilinogen Normal (Normal)
[2020-03-08 16:36] LABS: Amorphous Sediment 1+ URATE; Bacteria 2+ /hpf (None Seen); Red Blood Cells-Urine 25-50 SEEN /hpf (0-5); Squamous Epithelial Cells - UA 0-5 SEEN /hpf (5-10); White Blood Cells >100 SEEN /hpf (0-5)
[2020-03-08 16:37] LABS: Absolute Lymphocyte Count 1.41 X10^3/uL (0.83-4.51); Absolute Neutrophil Count 7.2 X10^3/uL (2.0-7.7); Anion Gap 7 (5-15); BUN 15 mg/dL (7-18); BUN/Creat Ratio 17.2 RATIO (10-20); Basophil# 0.04 X10^3/uL; Basophil% 0.4 % (0-1); Calcium,Total 9.6 mg/dL (8.5-10.1); Chloride 103 mmol/L (98-107); Creatinine, Serum 0.87 mg/dL (0.55-1.02); EST Glomerular Filtration Rate 70 mL/min (>60); Eosinophil# 0.28 X10^3/uL; Eosinophils% 2.9 % (0-5); Est Glom Filt Rate - Afr Amer 85 mL/min (>60); Estimated Creatinine Clearance 52.54 ml/min; Glucose 101 mg/dL (74-106); Hematocrit 41.2 % (37-47); Hemoglobin 13.8 g/dL (12.0-15.0); Lymphocyte # 1.41 X10^3/ul (4.0); Lymphocyte % 14.4 % (19-41); Mean Corp Hgb Conc 33.5 g/dL (32-36); Mean Corpuscular Hgb 31.1 pg (27.0-32.0); Mean Corpuscular Volume 92.8 fL (81-99); Mean Platelet Vol. 8.7 fl (6.2-12.0); Monocyte# 0.79 X10^3/uL; Monocyte% 8.1 % (0-10); NRBC Flagged by Analyzer 0 % (0-5); Neutrophil # 7.23 X10^3/uL (2.7-7.7); Platelet Count 293 K/mm3 (150-450); Potassium 3.3 mmol/L (3.5-5.1); RBC Distribution Width CV 14.1 % (11.6-14.6); RBC Distribution Width SD 47.8 fl (35.1-43.9); Red Blood Count 4.44 M/mm3 (4.2-5.4); Sodium Level 137 mmol/L (136-145); White Blood Count 9.8 K/mm3 (4.4-11.0)
[2020-03-08] MEDS: Smz/Tmp Ds Tablet 1 TABLET PO (17:10)
[2020-03-08 17:16] VITALS: RESP 18
== END 2020-03-08 17:18 | disposition home or self-care (01) ==
PROVIDERS: Emergency Provider Emergency Medicine; PCP Family Medicine
DX: N39.0 Urinary tract infection, site not specified (principal); R19.7 Diarrhea, unspecified; R11.10 Vomiting, unspecified; I25.10 Atherosclerotic heart disease of native coronary artery without angina pectoris; Z87.891 Personal history of nicotine dependence; Z95.5 Presence of coronary angioplasty implant and graft; Z79.02 Long term (current) use of antithrombotics/antiplatelets
CPT/HCPCS: 80048; 81001; 85025; 96374; 99283; J7030; A4216; J2405

== ENCOUNTER 2020-03-17 09:35 | Emergency (ER) | payer MEDICAID, SELFPAY ==
[2017-09-27 08:35] VITALS: BMI 18.0
[2020-03-17 09:38] VITALS: BP 122/105; PULSE 94; RESP 18; TEMP 36.7; O2SAT 88; BMI 22.1
[2020-03-17 09:43] VITALS: O2SAT 96
[2020-03-17 09:45] VITALS: BP 118/84
--- NOTE | 2020-03-17 09:47 | EKG12_ITS ---
Test Reason : SOB Blood Pressure : / mmHG Vent. Rate : 084 BPM Atrial Rate : 084 BPM P-R Int : 132 ms QRS Dur : 078 ms QT Int : 364 ms P-R-T Axes : 083 050 048 degrees QTc Int : 430 ms Normal sinus rhythm Nonspecific ST abnormality Abnormal ECG Confirmed by JODY HANKS ([id number]), map editor KACEY WOLF ([id number]) on 03/22/2020 2:20:12 PM Referred By: LENNY/ALYSE Confirmed By:JODY HANKS
--- NOTE | 2020-03-17 09:56 | ED.VISSUMM ---
- ER Visit Summary Date of Service: 03/17/20 Chief Complaint: [Shortness of breath] History of Present Illness: The patient is a 59 F [presents to the emergency department with shortness of breath over the last 2 days. Patient states that she has a history of COPD and has been unable to get some of her typical medications due to some insurance issues she has been having. Patient does have a cough. No fever. Patient complains of shortness of breath with activity and exertion. She denies any chest pain. She denies recent travel or surgery. She denies any exposures to anybody with COVID-19. No sick contacts in the home. Until patient had a heart cath 2 weeks ago and was told it was normal. Patient has history of coronary artery disease, COPD, high cholesterol, history of V. fib, A. fib, and obstructive sleep apnea.] Patient normally wears 2 L nasal cannula at home. Patient apparently has been having pulse ox is in the 88 to 89% range on the 2 L. Physical Examination: [HEENT-PERRLA, EOMI. Cranial nerves II through XII grossly intact. TMs clear. Mucous membranes moist. No adenopathy. Cardiovascular-regular rate and rhythm without murmur or ectopy Lungs-manage breath sounds bilaterally with some expiratory wheezes noted bilaterally. Patient minimally tachypneic with minimal conversational dyspnea. Patient was 88% on room air on arrival via EMS. Abdomen-normoactive bowel sounds, soft, nontender, no rebound or rigidity, no peritoneal signs. Extremities-intact ?4, normal range of motion, normal pulses, atraumatic] Test Results: [EKG obtained on arrival shows sinus rhythm with a ventricular rate of 84 bpm with some nonspecific ST changes. CBC with differential obtained showed a white count of 8.6, hemoglobin 13, hematocrit 40, placed 418. Chemistries unremarkable. Troponin was less than 0.015. Chest x-ray obtained showed hyperinflation with no evidence of infiltrate.] Emergency Department Course and Treatment: [IV line established on arrival. Patient placed on bus driver/monitor. Patient was given DuoNeb aerosol followed by albuterol aerosols. Patient was given Solu-Medrol 125 mg IV. After treatment she is markedly improved. On her 2 L nasal cannula she is satting in the mid to upper 90s. Patient is requesting to go home and does not feel like she will require admission. Patient's states that pharmacy called and they have some other medications available and they just need to pick them up.] Treatment Plan: [] Patient will be started on prednisone for 5 days. Patient advised to follow-up with her car cleaner within next 3 to 5 days advised to return if increasing shortness of breath or condition should worsen anyway. Disposition: [Discharged home in stable condition] Impression: [COPD exacerbation] This note was generated with [employer] dictation software. It may contain incorrect words, spelling, and punctuation that were not noted in review of the chart prior to signing ED Disposition - Plan for ED Patient: Referrals: Hugo Francois DO [Primary Care Provider] -
[2020-03-17] MEDS: MethylPREDNISolone 125 MG/2 ML Vial IV (10:05)
[2020-03-17] MEDS: 0.9% Normal Saline 1,000 ML 150 ML IV (10:05)
[2020-03-17 10:07] LABS: Absolute Lymphocyte Count 1.29 X10^3/uL (0.83-4.51); Absolute Neutrophil Count 5.7 X10^3/uL (2.0-7.7); Basophil# 0.05 X10^3/uL; Basophil% 0.6 % (0-1); Eosinophil# 1.13 X10^3/uL; Eosinophils% 13.1 % (0-5); Hematocrit 40.3 % (37-47); Hemoglobin 13.3 g/dL (12.0-15.0); Lymphocyte # 1.29 X10^3/ul (4.0); Mean Corpuscular Hgb 31.3 pg (27.0-32.0); Mean Corpuscular Volume 94.8 fL (81-99); Mean Platelet Vol. 7.9 fl (6.2-12.0); Monocyte# 0.37 X10^3/uL; Monocyte% 4.3 % (0-10); NRBC Flagged by Analyzer 0 % (0-5); Neutrophil # 5.72 X10^3/uL (2.7-7.7); Neutrophil % 66.4 % (47-70); Platelet Count 418 K/mm3 (150-450); RBC Distribution Width CV 14.4 % (11.6-14.6); Red Blood Count 4.25 M/mm3 (4.2-5.4); White Blood Count 8.6 K/mm3 (4.4-11.0)
[2020-03-17 10:08] VITALS: PULSE 91; RESP 20
[2020-03-17] MEDS: Albuterol 2.5 MG/3 ML VIAL.NEB. INHALATION ×3 (10:08)
[2020-03-17] MEDS: Ipratropium/Albuterol Sulfate 3 ML AMPUL.NEB INHALATION (10:08)
--- NOTE | 2020-03-17 10:23 | NURSING ---
GREEN TOP HEMOLIZED
--- NOTE | 2020-03-17 10:35 | RAD_ITS ---
STUDY: X-RAY CHEST REASON FOR EXAM: Female, 59 years old. SOB, HX COPD AND ND TECHNIQUE: Single AP portable view of the chest. COMPARISON: Comparison is made with prior study dated 03/01/2020. FINDINGS: EKG electrodes are seen. Hyperinflation. There is no demonstrated pleural abnormality. Normal size heart. Normal mediastinum and luly. Normal visualized pulmonary arteries. Normal visualized aortic arch and descending thoracic aorta. There are mild degenerative changes of the visualized thoracic spine. Normal visualized ribs, clavicles, and shoulders. There is no demonstrated abnormality of the visualized soft tissue structures of the upper abdomen. RAD/Chest 1 View (Portable) IMPRESSION: Hyperinflation. Electronically Signed: Krzysztof Guajardo, at 10:56 EDT , Service support ,
[2020-03-17 10:51] LABS: Anion Gap 9 (5-15); BUN 14 mg/dL (7-18); BUN/Creat Ratio 16.5 RATIO (10-20); Calcium,Total 9.1 mg/dL (8.5-10.1); Chloride 107 mmol/L (98-107); Creatinine, Serum 0.85 mg/dL (0.55-1.02); EST Glomerular Filtration Rate 73 mL/min (>60); Est Glom Filt Rate - Afr Amer 88 mL/min (>60); Estimated Creatinine Clearance 53.77 ml/min; Glucose 112 mg/dL (74-106); Potassium 3.9 mmol/L (3.5-5.1); Sodium Level 142 mmol/L (136-145)
--- NOTE | 2020-03-17 11:06 | ED.DEP ---
ED Disposition - Plan for ED Patient: Instructions: ED COPD Flare Prescriptions: Prednisone [Deltasone] 20 mg PO BID #10 tab Transmission Status: Pending to [id number] Referrals: Jairon Song MD [STAFF PHYSICIAN] - 3-5 Days
[2020-03-17 11:09] VITALS: PULSE 83; RESP 19; O2SAT 98
== END 2020-03-17 12:10 | disposition home or self-care (01) ==
PROVIDERS: Emergency Provider Emergency Medicine; PCP Family Medicine
DX: J44.1 Chronic obstructive pulmonary disease with (acute) exacerbation (principal); I25.10 Atherosclerotic heart disease of native coronary artery without angina pectoris
CPT/HCPCS: 71045; 80048; 84484; 85025; 93005; 94640; 96374; 99285; J7030; A4216

== ENCOUNTER → 2020-04-05 09:06 | Outpatient (CLI) | payer MEDICAID, SELFPAY ==
[2017-09-27 08:35] VITALS: BMI 18.0
[2020-03-17 09:38] VITALS: BMI 22.1
[2020-04-08 03:06] LABS: Alternaria alternata <0.10 kU/L (Class 0); Bermuda Grass <0.10 kU/L (Class 0); Bluegrass, Kentucky <0.10 kU/L (Class 0); Cat Hair/Dander, Standard <0.10 kU/L (Class 0); D farinae Mite <0.10 kU/L (Class 0); D pteronyssinus <0.10 kU/L (Class 0); Dog Epithelia <0.10 kU/L (Class 0); Elm, American White <0.10 kU/L (Class 0); Oak, White <0.10 kU/L (Class 0); Plantain, English <0.10 kU/L (Class 0); Ragweed, Short/Common <0.10 kU/L (Class 0)
[2020-04-08 06:34] LABS: Mouse Urine <0.10 kU/L (Class 0)
[2020-04-09 03:07] LABS: Aspirgillus flavus Negative (Neg:<1:1); Aspirgillus fumigatus Negative (Neg:<1:1)
[2020-04-09 04:21] LABS: Aspirgillus niger Negative (Neg:<1:1)
== END ==
PROVIDERS: PCP Family Medicine; Referring Provider Nurse Practitioner Acute Care; Visit Provider Nurse Practitioner Acute Care
DX: J45.909 Unspecified asthma, uncomplicated (principal)
CPT/HCPCS: 36415; 86003; 86606

== ENCOUNTER → 2020-04-14 09:27 | Outpatient (CLI) | payer MEDICAID, SELFPAY ==
[2017-09-27 08:35] VITALS: BMI 18.0
[2020-03-17 09:38] VITALS: BMI 22.1
[2020-04-14 10:57] LABS: AST(SGOT) 32 U/L (15-37); Alanine Aminotransfer ALT/SGPT 22 U/L (13-56); Albumin, Serum 3.6 g/dL (3.2-5.0); Alkaline Phosphatase 85 U/L (45-117); Bilirubin, Direct < 0.05 mg/dL (0.00-0.30); Cholesterol 382 mg/dL (200); Globulin 3.9 g/dL (2.2-4.2); High Density Lipoprotein 66 mg/dL; Protein, Total 7.5 g/dL (6.4-8.2); Triglycerides 368 mg/dL; Very Low Density Lipoprotein 74 mg/dL (5-40)
== END ==
PROVIDERS: PCP Family Medicine; Referring Provider Internal Medicine Cardiovascular Disease; Visit Provider Internal Medicine Cardiovascular Disease
DX: I25.10 Atherosclerotic heart disease of native coronary artery without angina pectoris (principal); E78.5 Hyperlipidemia, unspecified
CPT/HCPCS: 36415; 80061; 80076

== ENCOUNTER → 2020-06-04 20:09 | Outpatient (CLI) | payer MEDICAID, SELFPAY ==
[2017-09-27 08:35] VITALS: BMI 18.0
[2020-05-28 10:10] VITALS: BMI 23.0
== END ==
PROVIDERS: PCP Family Medicine; Referring Provider Nurse Practitioner Acute Care; Visit Provider Nurse Practitioner Acute Care
DX: G47.33 Obstructive sleep apnea (adult) (pediatric) (principal); J44.9 Chronic obstructive pulmonary disease, unspecified
CPT/HCPCS: 95810

== ENCOUNTER → 2020-09-07 12:28 | Outpatient (CLI) | payer MEDICAID, SELFPAY ==
[2017-09-27 08:35] VITALS: BMI 18.0
[2020-09-07 11:34] VITALS: BMI 24.1
[2020-09-07 13:33] LABS: AST(SGOT) 26 U/L (15-37); Alanine Aminotransfer ALT/SGPT 23 U/L (13-56); Albumin, Serum 3.8 g/dL (3.2-5.0); Alkaline Phosphatase 109 U/L (45-117); Bilirubin, Direct < 0.05 mg/dL (0.00-0.30); Cholesterol 221 mg/dL (200); Globulin 4.2 g/dL (2.2-4.2); High Density Lipoprotein 62 mg/dL; Triglycerides 307 mg/dL; Very Low Density Lipoprotein 61 mg/dL (5-40)
== END ==
PROVIDERS: PCP Family Medicine; Referring Provider Physician Assistant Medical; Visit Provider Physician Assistant Medical
DX: I25.10 Atherosclerotic heart disease of native coronary artery without angina pectoris (principal); E78.5 Hyperlipidemia, unspecified
CPT/HCPCS: 36415; 80061; 80076

== ENCOUNTER → 2020-11-29 12:55 | Outpatient (CLI) | payer MEDICAID, SELFPAY ==
[2017-09-27 08:35] VITALS: BMI 18.0
[2020-08-31 10:45] VITALS: BMI 24.5
[2020-09-07 11:34] VITALS: BMI 24.1
--- NOTE | 2020-11-29 12:57 | CT_ITS ---
STUDY: LOW DOSE CT LUNG CANCER SCREENING REASON FOR EXAM: Female, 60 years old. Smoker and gt; 40 pack years quit December 2017 RADIATION DOSAGE (If Supplied By Facility): CTDIvol = ( 3.02 ) mGy, DLP = ( 101.56 ) mGycm TECHNIQUE: No contrast was administered. Low dose technique was utilized (average mAS-38 and kVp 120). 1.25 mm axial source images with a slice interval of 1.25-mm were reconstructed in lung windows. 2.5 mm axial source images with a slice interval of 2.5-mm were reconstructed in lung windows. 5.0 mm axial source images with a slice interval of 5.0-mm were reconstructed in soft tissue windows. Nodule measured using lung windows on PACS and/or independent workstation with automated measurement of minimum and maximum diameter. Nodule measurement reported as average diameter rounded to the nearest whole number. Growth is defined as an increase ins size of greater than 1.5 mm. COMPARISON: None. NODULES: No suspicious nodules are seen. Emphysema: Stable emphysematous changes worse in the upper lobes. Stable mild scarring at the lung apices as well as at the lung bases. Endobronchial lesion: None Aorta: Scattered calcific plaques. Coronary arteries: Coronary artery calcification. Pulmonary artery: Borderline enlargement of the pulmonary arteries. Mediastinal nodes: Small mediastinal lymph nodes. Other chest and abdominal findings: CT/Low Dose CT Lung Screening IMPRESSION: Lung-RADS category 2 - Continue annual screening with LDCT in 12 months. IMPORTANT NOTES FOR USE: ACR Lung-RADS Version 1.1 Assessment Categories Release Date: 2018 Category: Coded 0-4 bases on nodule(s) with highest degree of suspicion. Negative screen is defined as categories 1 and 2; a positive screen is defined as categories 3 and 4. Category 3 and 4A nodules that are unchanged on interval CT should be coded as category 2, and individuals returned to screening in 12 months. Category 4X: Category 3 or 4 nodules with additional imaging findings that increase the suspicion of lung cancer, such as spiculation, GGN that doubles in size in 1 year, enlarged lymph notes, etc. Category Modifiers: S (significant finding unrelated to lung cancer) Electronically Signed: Krzysztof Guajardo MD at 14:38 EDT , Service support ,
--- NOTE | 2020-11-29 15:51 | PFTCOMP_ITS ---
COMPLETE PULMONARY FUNCTION TEST INTERPRETATION Brief HPI: Patient is a 60 year old female, currently under the care of myself, who presents to [facility] for complete pulmonary function tests secondary to diagnosis of COPD. Respiratory therapist reports good effort and reproducible results. Interpretation: Forced expiration spirometry shows a severe large airways obstructive ventilatory defect with an FEV1 of 37% predicted. There is no significant bronchodilator response by strict ATS criteria. Spirograms are of good quality and plateau slowly, indicating slowly emptying areas of the lungs. The respiratory flow volume loop shows decreased expiratory flow rates at all lung volumes consistent with airway obstruction. Lung volumes by body plethysmography show a normal total lung capacity at 4.32 L, 101% predicted. FRC and RV are elevated out of proportion. Lung volume measurements are consistent with air-trapping. Diffusion capacity by carbon monoxide is decreased at 53% predicted. The airway resistance is elevated. Compared to previous pulmonary function tests from 08/14/2019, there is been a significant reduction in FVC and FEV1 by 18% and 23% respectively. Impression: Irreversible severe large airways obstructive ventilatory defect resulting in air trapping, with a symmetric reduction diffusing capacity. There has been worsening compared to 2019.
== END ==
PROVIDERS: PCP Family Medicine; Referring Provider Nurse Practitioner Acute Care; Visit Provider Nurse Practitioner Acute Care
DX: J44.9 Chronic obstructive pulmonary disease, unspecified (principal); F17.210 Nicotine dependence, cigarettes, uncomplicated
CPT/HCPCS: 71271; 94060; 94726; 94729

== ENCOUNTER → 2021-03-14 11:38 | Outpatient (CLI) | payer MEDICAID, SELFPAY ==
[2017-09-27 08:35] VITALS: BMI 18.0
[2021-03-14 11:14] VITALS: BMI 24.0
[2021-03-14 13:23] LABS: AST(SGOT) 25 U/L (15-37); Alanine Aminotransfer ALT/SGPT 23 U/L (13-56); Albumin, Serum 3.6 g/dL (3.2-5.0); Alkaline Phosphatase 107 U/L (45-117); Bilirubin, Direct < 0.05 mg/dL (0.00-0.30); Cholesterol 290 mg/dL (200); Globulin 4.4 g/dL (2.2-4.2); High Density Lipoprotein 58 mg/dL; Triglycerides 343 mg/dL; Very Low Density Lipoprotein 69 mg/dL (5-40)
== END ==
PROVIDERS: PCP Family Medicine; Referring Provider Physician Assistant Medical; Visit Provider Physician Assistant Medical
DX: I25.10 Atherosclerotic heart disease of native coronary artery without angina pectoris (principal); E78.5 Hyperlipidemia, unspecified
CPT/HCPCS: 36415; 80061; 80076

== ENCOUNTER 2021-11-09 12:53 | Outpatient (CLI) | payer MEDICAID, SELFPAY ==
[2017-09-27 08:35] VITALS: BMI 18.0
--- NOTE | 2021-11-09 12:54 | CT_ITS ---
STUDY: LOW DOSE CT LUNG CANCER SCREENING REASON FOR EXAM: Female, 61 years old. Te1fnpu and gt; 40 pack years quit 2018 RADIATION DOSAGE (If Supplied By Facility): CTDIvol = ( 2.01 ) mGy, DLP = ( 61.43 ) mGycm TECHNIQUE: No contrast was administered. Low dose technique was utilized (average mAS-38 and kVp 120). 1.25 mm axial source images with a slice interval of 1.25-mm were reconstructed in lung windows. 2.5 mm axial source images with a slice interval of 2.5-mm were reconstructed in lung windows. 5.0 mm axial source images with a slice interval of 5.0-mm were reconstructed in soft tissue windows. Nodule measured using lung windows on PACS and/or independent workstation with automated measurement of minimum and maximum diameter. Nodule measurement reported as average diameter rounded to the nearest whole number. Growth is defined as an increase ins size of greater than 1.5 mm. COMPARISON: Comparison is made with prior study dated 11/29/2020. NODULES: No suspicious nodules are seen. Emphysema: Hyperinflation. Diffuse emphysematous changes worse in the upper lobes with evidence of bilateral apical scarring. Mild scarring at the lung bases. This is unchanged. Endobronchial lesion: None Aorta: Scattered atherosclerotic calcific plaques. Coronary arteries: Coronary artery calcification. Heart: Unremarkable. Pulmonary artery: Unremarkable Mediastinal nodes: Small mediastinal lymph nodes. Other chest and abdominal findings: CT/Low Dose CT Lung Screening IMPRESSION: Lung-RADS category 2 - Continue annual screening with LDCT in 12 months. IMPORTANT NOTES FOR USE: ACR Lung-RADS Version 1.1 Assessment Categories Release Date: 2018 Category: Coded 0-4 bases on nodule(s) with highest degree of suspicion. Negative screen is defined as categories 1 and 2; a positive screen is defined as categories 3 and 4. Category 3 and 4A nodules that are unchanged on interval CT should be coded as category 2, and individuals returned to screening in 12 months. Category 4X: Category 3 or 4 nodules with additional imaging findings that increase the suspicion of lung cancer, such as spiculation, GGN that doubles in size in 1 year, enlarged lymph notes, etc. Category Modifiers: S (significant finding unrelated to lung cancer) Electronically Signed: Krzysztof Guajardo MD at 13:38 EDT ,
== END 2021-11-09 23:59 | disposition home or self-care (01) ==
LOC: CT 12:53
PROVIDERS: PCP Family Medicine; Visit Provider Nurse Practitioner Acute Care
DX: F17.210 Nicotine dependence, cigarettes, uncomplicated (principal)
CPT/HCPCS: 71271

== ENCOUNTER → 2021-12-22 | Outpatient (CLI) | payer MEDICAID, SELFPAY ==
[2017-09-27 08:35] VITALS: BMI 18.0
[2021-12-22 12:10] LABS: Absolute Lymphocyte Count 2.24 X10^3/uL (0.83-4.51); Absolute Neutrophil Count 4.8 X10^3/uL (2.0-7.7); Basophil# 0.05 X10^3/uL; Basophil% 0.6 % (0-1); Eosinophil# 0.55 X10^3/uL; Eosinophils% 6.6 % (0-5); Hematocrit 37.4 % (37-47); Hemoglobin 11.8 g/dL (12.0-15.0); Lymphocyte # 2.24 X10^3/ul (0.83-4.51); Lymphocyte % 26.9 % (19-41); Mean Corp Hgb Conc 31.6 g/dL (32-36); Mean Corpuscular Hgb 29.5 pg (27.0-32.0); Mean Corpuscular Volume 93.5 fL (81-99); Mean Platelet Vol. 8.3 fl (6.2-12.0); Monocyte# 0.57 X10^3/uL; Monocyte% 6.8 % (0-10); NRBC Flagged by Analyzer 0 % (0-5); Neutrophil # 4.84 X10^3/uL (2.7-7.7); Platelet Count 330 K/mm3 (150-450); RBC Distribution Width SD 47.8 fl (35.1-43.9); White Blood Count 8.3 K/mm3 (4.4-11.0)
[2021-12-22 12:32] LABS: ALB/GLOB Ratio 0.9 RATIO (0.9-2.4); AST(SGOT) 20 U/L (15-37); Alanine Aminotransfer ALT/SGPT 29 U/L (13-56); Alkaline Phosphatase 94 U/L (45-117); Anion Gap 5 (5-15); BUN 10 mg/dL (7-18); BUN/Creat Ratio 11.8 RATIO (10-20); Calcium,Total 9.6 mg/dL (8.5-10.1); Chloride 101 mmol/L (98-107); Cholesterol 165 mg/dL (200); Creatinine, Serum 0.84 mg/dL (0.55-1.02); EST Glomerular Filtration Rate 73 mL/min (>60); Est Glom Filt Rate - Afr Amer 88 mL/min (>60); Globulin 4.3 g/dL (2.2-4.2); Glucose 103 mg/dL (74-106); High Density Lipoprotein 70 mg/dL; Potassium 4.1 mmol/L (3.5-5.1); Protein, Total 8.3 g/dL (6.4-8.2); Sodium Level 138 mmol/L (136-145); Triglycerides 224 mg/dL; Very Low Density Lipoprotein 45 mg/dL (5-40)
== END | disposition home or self-care (01) ==
LOC: LAB 11:39
PROVIDERS: PCP Family Medicine; Referring Provider Physician Assistant Medical; Visit Provider Physician Assistant Medical
DX: I48.91 Unspecified atrial fibrillation (principal); I25.10 Atherosclerotic heart disease of native coronary artery without angina pectoris; E78.5 Hyperlipidemia, unspecified
CPT/HCPCS: 36415; 80053; 80061; 85025

== ENCOUNTER → 2022-03-07 | Outpatient (CLI) | payer MEDICAID, SELFPAY ==
[2017-09-27 08:35] VITALS: BMI 18.0
--- NOTE | 2022-03-07 08:43 | STRESSREP_ITS ---
Stress Test Report Date: 03-07-2022 Procedure: Pharmacologic stress nuclear imaging study Indications: Shortness of breath/dyspnea on exertion; CAD; PCI; PAF; ventricular fibrillation; cardiac arrest Consent: Per the patient Procedure: The patient underwent pharmacologic (Regadenoson 0.4mg ) evaluation with a peak heart rate of 100 beats per minute (62%predicted maximal heart rate) and a peak blood pressure of 138/88 mmHg. The baseline ECG demonstrated normal sinus rhythm. The peak pharmacologic ECG demonstrated no obvious ECG changes. There were no cardiac dysrhythmias pretest, during pharmacologic infusion, or recovery. There was no complaint of chest discomfort during pharmacologic infusion or recovery. The examination was discontinued secondary to completion of protocol. Impression: 1. Pharmacologic (Regadenoson) evaluation 2. Peak pharmacologic ECG with no obvious ECG changes. 3. There were no cardiac dysrhythmias pretest, during pharmacologic infusion, or recovery. 4. Nuclear images pending Myocardial perfusion imaging study: Technique: The patient was injected with 11.8 millicuries of technetium 99m Cardiolite and subsequently rest SPECT Cardiolite nuclear imaging was obtained in the horizontal long, vertical long, and short axis views. The patient underwent pharmacologic (Regadenoson) evaluation with a peak heart rate of 100 beats per minute (62% percent predicted maximal heart rate) and a peak blood pressure of 138/88 mmHg. The patient was injected with 33.7 millicuries of technetium 99m Cardiolite and subsequently stress SPECT Cardiolite nuclear imaging was obtained in the horizontal long, vertical long, and short axis views. A gated Cardiolite study at peak stress was obtained. Interpretation: Rest and stress SPECT Cardiolite nuclear imaging status post realignment, normalization, and attenuation correction demonstrate relative uniform tracer uptake and myocardial perfusion appearing within normal limits. There is end systolic thickening and brightening. The gated Cardiolite study demonstrates myocardial thickening and inward wall motion. The reported LVEF is 81%. Impression: 1. Rest and stress SPECT Cardiolite nuclear imaging demonstrate relative uniform tracer uptake and myocardial perfusion appearing within normal limits. 2. The gated Cardiolite study reports an LVEF of 81%. This note was generated with [employer] software. It may contain incorrect words, spelling, and punctuation that were not noted in checking the note before signing.
== END | disposition home or self-care (01) ==
LOC: CVS 06:35
PROVIDERS: PCP Family Medicine; Referring Provider Physician Assistant Medical; Visit Provider Physician Assistant Medical
DX: R06.02 Shortness of breath (principal); Z95.5 Presence of coronary angioplasty implant and graft; I25.10 Atherosclerotic heart disease of native coronary artery without angina pectoris
CPT/HCPCS: 78452; 93017; A9500; A4216; J2785

== ENCOUNTER 2022-03-31 10:56 | Emergency (ER) | payer MEDICAID, SELFPAY ==
[2017-09-27 08:35] VITALS: BMI 18.0
[2022-03-31 10:58] VITALS: BP 158/86; PULSE 93; RESP 22; TEMP 36.6; O2SAT 94; BMI 24.5
--- NOTE | 2022-03-31 11:20 | EKG12_ITS ---
Test Reason : PALPS Blood Pressure : / mmHG Vent. Rate : 079 BPM Atrial Rate : 079 BPM P-R Int : 132 ms QRS Dur : 078 ms QT Int : 350 ms P-R-T Axes : 079 041 049 degrees QTc Int : 401 ms Normal sinus rhythm Nonspecific ST abnormality Abnormal ECG Confirmed by MONALISA MASCORRO, WEI ([id number]), commissioning editor TAMARA SIMPSON ([id number]) on 04/03/2022 9:39:16 AM Referred By: FLAVIO/HELEN Confirmed By:ANNIKA SHELDON MD
--- NOTE | 2022-03-31 11:22 | EX.ED.DYSGE1 ---
HPI <BEATRICE Grant - Last Filed: 03/31/22 13:37> History of Present Illness Chief Complaint: Palpitations Narrative Narrative: 61-year-old female with history of COPD on 2 L of nasal cannula daily, CAD presents to the emergency department for multiple complaints. Patient states that she has had right-sided neck pain for the last 4 days, patient states over the last week she has felt lightheaded, whenever she gets up and moves around the house she feels that her heart rate is racing. Patient states that every time she gets up she feels dizzy almost like she is going to blackout. Patient did call her PCP who told her to come to the emergency department for evaluation. She is also concern for COVID-19, she does have a cough however could be chronic. She denies any fevers however did have some diaphoresis. PFSH <BEATRICE Grant - Last Filed: 03/31/22 13:37> [facility] Medical History (Updated 03/31/22 @ 13:36 by BEATRICE Grant) Atherosclerotic heart disease of [place] coronary artery without angina pectoris Cardiac arrest Cardiac arrest with ventricular fibrillation Chest pain COPD (chronic obstructive pulmonary disease) Depression Dyspnea on exertion History of sudden cardiac arrest successfully resuscitated HLD (hyperlipidemia) Nicotine dependence, cigarettes, uncomplicated NSTEMI (non-ST elevated myocardial infarction) Home Medications aspirin 81 mg chewable tablet 81 mg PO DAILY@0800 09/29/17 [Rx Last Taken 01/12/19] cholecalciferol (vitamin D3) 25 mcg (1,000 unit) capsule 25 mcg PO DAILY 03/01/20 [History Last Taken Unknown] ibuprofen 200 mg capsule 200 mg PO Q6H PRN Pain Or Fever 03/01/20 [History Last Taken Unknown] oxygen #1 ea 03/01/20 [History Last Taken Unknown] sertraline 100 mg tablet 100 mg PO DAILY 03/01/20 [History Last Taken Unknown] ondansetron 4 mg disintegrating tablet 4 mg PO Q8H PRN PRN Nausea #10 tabs 03/08/20 [Rx Last Taken Unknown] nystatin 100,000 unit/mL oral suspension 5 ml mucous membrane TID #250 mL 08/31/20 [Rx Last Taken Unknown] ezetimibe 10 mg tablet (Zetia) 10 mg PO DAILY #30 tabs 03/14/21 [Rx Last Taken Unknown] albuterol sulfate 90 mcg/actuation aerosol inhaler (ProAir HFA) 2 puff inhalation Q6H PRN shortness of breath or wheezing #18 grams 12/16/21 [Rx Last Taken Unknown] cetirizine 10 mg capsule 10 mg PO HS #90 caps 12/16/21 [Rx Last Taken Unknown] fluticasone 100 mcg-salmeterol 50 mcg/dose blistr powdr for inhalation (Wixela Inhub) 1 inh inhalation BID #60 ea 12/16/21 [Rx Last Taken Unknown] fluticasone propionate 50 mcg/actuation nasal spray,suspension 2 spray intranasal DAILY #16 grams 12/16/21 [Rx Last Taken Unknown] montelukast 10 mg tablet 10 mg PO QPM #30 tabs 12/16/21 [Rx Last Taken Unknown] ropinirole 0.5 mg tablet 0.5 mg PO DAILY #60 tabs 12/16/21 [Rx Last Taken Unknown] tiotropium bromide 2.5 mcg/actuation mist for inhalation (Spiriva Respimat) 2 puff inhalation QDAY #1 ea 12/16/21 [Rx Last Taken Unknown] rosuvastatin 5 mg tablet (Crestor) 5 mg PO DAILY #30 tabs 12/22/21 [Rx Last Taken Unknown] metoprolol succinate 25 mg tablet,extended release 24 hr 12.5 mg PO DAILY #15 tabs 03/27/22 [Rx Last Taken Unknown] Allergy/AdvReac Type Severity Reaction Status Date / Time latex Allergy Rash Verified 03/31/22 11:32 Penicillins Allergy Hives Verified 03/31/22 11:32 atorvastatin AdvReac Intermediate muscle Verified 03/31/22 11:32 aches gemfibrozil AdvReac Intermediate diarrhea Verified 03/31/22 11:32 Family History Father Myocardial infarction FH: CABG (coronary artery bypass surgery) Hypertension Diabetes Mother Myocardial infarction FH: CABG (coronary artery bypass surgery) HLD (hyperlipidemia) Diabetes Brother Cancer lung cancer Brother Cancer Penile cancer Brother Cancer Lung cancer Grandmother Colon cancer Surgical History History of left heart catheterization (03/03/20) Hx of exploratory laparotomy S/P excision of lipoma Stented coronary artery (09/26/17) Social History Smoking Status: Former smoker quit date: 12/03/17 alcohol intake: current alcohol intake frequency: holidays/special occasions only Alcohol type: hard liquor substance use type: marijuana caffeine: Yes Type: carbonated beverages and coffee what type of physical activity do you participate in: none seatbelt use: always do you feel safe at home: Yes ROS <BEATRICE Grant - Last Filed: 03/31/22 13:37> ROS ED ROS Narrative Constitutional: Negative for fever, chills, weight loss, weakness. Positive for diaphoresis Eyes: Negative for vision loss, vision change, double vision ENT: Negative for any sore throat, ear pain, congestion Cardiovascular: Negative for any chest pain, tightness. Positive palpitations Respiratory: Negative for any cough, sputum production, hemoptysis. Positive for dyspnea, dyspnea on exertion, orthopnea Gastrointestinal: Negative for any abdominal pain, nausea, vomiting, diarrhea, constipation, blood in stool, blood in vomit : Negative for any urinary frequency, dysuria, retention, blood in urine Muscle skeletal: Negative for any muscle joint pain, stiffness, myalgias, arthralgias, neck pain, back pain Neurological: Negative for any headache, syncope, numbness or tingling. Positive for dizziness Skin: Negative for any rashes, lumps, itching, abrasions, lacerations Psychiatric: Negative for any depression, anxiety, stress, suicidal ideation, homicidal ideation Hematologic: Negative for any easy bruising, excessive bruising, easy bleeding Allergies: Negative for any eczema, hives, rash EXAM <BEATRICE Grant - Last Filed: 03/31/22 13:37> Physical Exam Narrative Exam Narrative: Vital signs reviewed. Patient appears to be in no respiratory distress. Patient on 2 L nasal cannula 99% room air. HEET: Head normocephalic atraumatic, TMs clear bilaterally. Posterior pharynx is clear, moist mucous membranes. Nares clear bilaterally. Neck: Supple with no lymphadenopathy patient does have some tenderness to the right of the cervical spine, this pain appears to be muscle skeletal in nature. Negative for any meningismal signs. No signs of meningismus, negative jolt sign. Cardiac: Regular rate and rhythm no murmurs gallops or rubs, equal peripheral pulses bilaterally. Respiratory: Patient has wheezing to the right lower lobe, patient has crackles, coarse breath sounds to the left mid to lower lobe.. No chest tenderness. Abdomen: Soft, nontender, nondistended. No abdominal bruit or pulsatile masses. No hepatosplenomegaly Extremities: No peripheral edema, no signs of gross trauma or deformity. Active full range of motion of all extremities. Neuro: Cranial nerves II through XII intact, no focal neurological deficits. Skin: Clean dry and intact with no rash, purpura, petechiae, vesicles or pustules. Backs/flank: No CVA tenderness, no midline spinal tenderness, no deformity. Psych: Normal mood and affect. No SI, HI or acute psychosis. Const Vital Signs: 03/31/22 10:58 03/31/22 11:25 03/31/22 11:25 Temperature 97.9 F 98.4 F 98.4 F Temperature Source Temporal Oral Oral Pulse Rate 93 83 79 Pulse Rate [Lying] Pulse Rate [Sitting (for 1 minute prior to obtaining)] Pulse Rate [Standing (for 1 minute prior to obtaining)] Respiratory Rate 22 H 19 H 14 Respiratory Effort Blood Pressure 158/86 H 128/87 H 128/87 H Blood Pressure [Lying] Blood Pressure [Sitting (for 1 minute prior to obtaining)] Blood Pressure [Standing (for 1 minute prior to obtaining)] Blood Pressure Mean 110 100 100 Blood Pressure Mean [Lying] Blood Pressure Mean [Sitting (for 1 minute prior to obtaining)] Blood Pressure Mean [Standing (for 1 minute prior to obtaining)] Pulse Ox 94 96 97 Oxygen Delivery Method Nasal Cannula Nasal Cannula Nasal Cannula Oxygen Flow Rate (L/min) 3 3 3 03/31/22 11:28 03/31/22 12:28 03/31/22 12:28 Temperature 99.4 F H 99.4 F H Temperature Source Oral Oral Pulse Rate 90 93 Pulse Rate [Lying] Pulse Rate [Sitting (for 1 minute prior to obtaining)] Pulse Rate [Standing (for 1 minute prior to obtaining)] Respiratory Rate 14 14 Respiratory Effort Normal Non-Labored Blood Pressure 140/89 H 140/89 H Blood Pressure [Lying] Blood Pressure [Sitting (for 1 minute prior to obtaining)] Blood Pressure [Standing (for 1 minute prior to obtaining)] Blood Pressure Mean 106 106 Blood Pressure Mean [Lying] Blood Pressure Mean [Sitting (for 1 minute prior to obtaining)] Blood Pressure Mean [Standing (for 1 minute prior to obtaining)] Pulse Ox 100 100 Oxygen Delivery Method Nasal Cannula Nasal Cannula Oxygen Flow Rate (L/min) 3 3 03/31/22 13:21 03/31/22 13:21 03/31/22 13:24 Temperature 99.8 F H 99.8 F H Temperature Source Oral Oral Pulse Rate 87 87 Pulse Rate [Lying] 82 Pulse Rate [Sitting (for 1 minute prior to obtaining)] 87 Pulse Rate [Standing (for 1 minute prior to obtaining)] 91 Respiratory Rate 18 20 H Respiratory Effort Blood Pressure 134/80 H 130/80 H Blood Pressure [Lying] 134/75 H Blood Pressure [Sitting (for 1 minute prior to obtaining)] 126/80 H Blood Pressure [Standing (for 1 minute prior to obtaining)] 137/79 H Blood Pressure Mean 98 96 Blood Pressure Mean [Lying] 94 Blood Pressure Mean [Sitting (for 1 minute prior to obtaining)] 95 Blood Pressure Mean [Standing (for 1 minute prior to obtaining)] 98 Pulse Ox 100 100 Oxygen Delivery Method Nasal Cannula Nasal Cannula Oxygen Flow Rate (L/min) 3 3 <Dr. Barry Caraballo MD - Last Filed: 03/31/22 22:48> Physical Exam Const Vital Signs: 03/31/22 10:58 03/31/22 11:25 03/31/22 11:25 Temperature 97.9 F 98.4 F 98.4 F Temperature Source Temporal Oral Oral Pulse Rate 93 83 79 Pulse Rate [Lying] Pulse Rate [Sitting (for 1 minute prior to obtaining)] Pulse Rate [Standing (for 1 minute prior to obtaining)] Respiratory Rate 22 H 19 H 14 Respiratory Effort Blood Pressure 158/86 H 128/87 H 128/87 H Blood Pressure [Lying] Blood Pressure [Sitting (for 1 minute prior to obtaining)] Blood Pressure [Standing (for 1 minute prior to obtaining)] Blood Pressure Mean 110 100 100 Blood Pressure Mean [Lying] Blood Pressure Mean [Sitting (for 1 minute prior to obtaining)] Blood Pressure Mean [Standing (for 1 minute prior to obtaining)] Pulse Ox 94 96 97 Oxygen Delivery Method Nasal Cannula Nasal Cannula Nasal Cannula Oxygen Flow Rate (L/min) 3 3 3 08/26/22 11:28 03/31/22 12:28 03/31/22 12:28 Temperature 99.4 F H 99.4 F H Temperature Source Oral Oral Pulse Rate 90 93 Pulse Rate [Lying] Pulse Rate [Sitting (for 1 minute prior to obtaining)] Pulse Rate [Standing (for 1 minute prior to obtaining)] Respiratory Rate 14 14 Respiratory Effort Normal Non-Labored Blood Pressure 140/89 H 140/89 H Blood Pressure [Lying] Blood Pressure [Sitting (for 1 minute prior to obtaining)] Blood Pressure [Standing (for 1 minute prior to obtaining)] Blood Pressure Mean 106 106 Blood Pressure Mean [Lying] Blood Pressure Mean [Sitting (for 1 minute prior to obtaining)] Blood Pressure Mean [Standing (for 1 minute prior to obtaining)] Pulse Ox 100 100 Oxygen Delivery Method Nasal Cannula Nasal Cannula Oxygen Flow Rate (L/min) 3 3 03/31/22 13:21 03/31/22 13:21 03/31/22 13:24 Temperature 99.8 F H 99.8 F H Temperature Source Oral Oral Pulse Rate 87 87 Pulse Rate [Lying] 82 Pulse Rate [Sitting (for 1 minute prior to obtaining)] 87 Pulse Rate [Standing (for 1 minute prior to obtaining)] 91 Respiratory Rate 18 20 H Respiratory Effort Blood Pressure 134/80 H 130/80 H Blood Pressure [Lying] 134/75 H Blood Pressure [Sitting (for 1 minute prior to obtaining)] 126/80 H Blood Pressure [Standing (for 1 minute prior to obtaining)] 137/79 H Blood Pressure Mean 98 96 Blood Pressure Mean [Lying] 94 Blood Pressure Mean [Sitting (for 1 minute prior to obtaining)] 95 Blood Pressure Mean [Standing (for 1 minute prior to obtaining)] 98 Pulse Ox 100 100 Oxygen Delivery Method Nasal Cannula Nasal Cannula Oxygen Flow Rate (L/min) 3 3 MDM <BEATRICE Grant - Last Filed: 03/31/22 13:37> [facility] Lab Data Labs: Laboratory Results - last 24 hr 03/31/22 03/31/22 03/31/22 11:34 11:34 11:34 WBC 11.8 H RBC 4.02 L Hgb 12.6 Hct 38.3 MCV 95.3 MCH 31.3 MCHC 32.9 RDW Std Deviation 49.7 H RDW Coeff of [place] 14.2 Plt Count 281 MPV 8.5 Immature Gran % (Auto) 0.500 Neut % (Auto) 83.7 H Lymph % (Auto) 8.2 L [place] % (Auto) 6.0 Eos % (Auto) 1.3 Baso % (Auto) 0.3 Absolute Neuts (auto) 9.9 H Absolute Lymphs (auto) 0.97 Nucleated RBC % 0 Sodium 138 Potassium 3.5 Chloride 104 Carbon Dioxide 29.0 Anion Gap 5 BUN 11 Creatinine 0.67 Estim Creat Clear Calc 66.54 Est GFR (MDRD) Af Amer 115 Est GFR (MDRD) Non-Af 95 BUN/Creatinine Ratio 16.5 Glucose 116 H Calcium 9.4 Troponin I High Sens 6 B-Natriuretic Peptide 105.6 H Radiography Diagnostic Testing: Clinical Impression(s) from Imaging Studies Chest X-Ray 03/31/22 12:00 IMPRESSION: Hyperinflation. Electronically Signed: Krzysztof Guajardo MD at 12:36 EDT , EKG Normal sinus rhythm: Attestation: I personally reviewed and interpreted this EKG as follows: Comments: Normal sinus rhythm, rate of 79 bpm, RI 132 ms, QRS duration 78 ms, no acute ST elevation, no acute infarct noted. Treatment and Re-Evaluation Narrative: Patient appears well, patient appears nontoxic, vital signs are stable. Patient presents the emergency department with a feeling of lightheadedness, palpitations, elevated heart rate while ambulating. Patient did receive a full cardiac work-up, patient's CBC showed slight leukocytosis with a white blood count 1.8, patient's chemistries were unremarkable, patient's troponin was negative, patient's proBNP was only slightly elevated 105. Patient's chest x-ray was unremarkable. Patient was negative for COVID-19, influenza. Patient's EKG was unremarkable. Patient received IV fluids, on reassessment was resting. Patient will receive orthostatic vital signs. Orthostatic vital signs were negative. Patient was given [place] for her right-sided neck pain. At this time there is no evidence of any pneumonia, COVID, influenza, SC, ischemia. 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 Patient stable for discharge. <Dr. Barry Caraballo MD - Last Filed: 03/31/22 22:48> [facility] Narrative Medical decision making narrative: I have personally performed a face to face assessment of the patient and have reviewed the KASANDRA Note. I performed a substantive portion of the visit including all aspects of the following. My zepeda findings include: History is remarkable for numerous symptoms. After asking specific symptoms she made the comment my neck also hurts. Apparently she made the same comment to the midlevel. Patient was at the primary reason she presented to the emergency department. She states she gets lightheaded when she stands up and her heart rate goes crazy and all over. When asked to be more specific she made comment that her heart is fast. She did acknowledge that she wore an event monitor. Apparently the event monitor indicated a maximum rate of 120. Patient does have history of COPD and is seen by pulmonary. Patient reports a syncopal episode when she bent over to pet a dog 4 days ago. Patient denies fever, chills night sweats. She denies headache. She did report blurred vision that is intermittent. She denies loss of vision, photosensitivity or diplopia. She denies ringing or ears or decreased hearing. She denies congestion postnasal drainage. She denies sore throat. She does have a slight cough which is normal. She denies history of PE. She does report intermittent chest pain and palpitations. She denies orthopnea or PND. She denies swelling of her lower extremity, discoloration or pain. She denies vomiting or diarrhea. She denies black or maroon-colored stool. She denies urologic symptoms. Exam is remarkable for no eye contact during the entire history and physical H EENT exam is normal. Neck is supple. Trachea is midline. There is no carotid bruit noted. Heart is regular. There is no murmur, gallop or rub. Rate is normal. Lungs are clear to auscultation with good air bilaterally. Abdomen is soft nontender. There is no hepatosplenomegaly. There are no palp pulsatile mass. There is no abdominal bruit. There is no asymmetry, swelling, discoloration, leg vein distention, palpable cords or tenderness along the distribution of the deep venous system. Patient is oriented x3. There is no motor or sensory deficit. Cranials 2 through 12 are intact. There is no dysphonia. There is no dysarthria. Medical Decision Making patient with a constellation of symptoms. Will obtain CBC to rule out anemia. Basic metabolic panel to assess renal function and electrolyte abnormality. BNP to assess for possible heart failure. EKG was obtained to rule out cardiac ischemia or dysrhythmia. Other additions or changes: [None] Lab Data Labs: Laboratory Results - last 24 hr 03/31/22 03/31/22 03/31/22 11:34 11:34 11:34 WBC 11.8 H RBC 4.02 L Hgb 12.6 Hct 38.3 MCV 95.3 MCH 31.3 MCHC 32.9 RDW Std Deviation 49.7 H RDW Coeff of [place] 14.2 Plt Count 281 MPV 8.5 Immature Gran % (Auto) 0.500 Neut % (Auto) 83.7 H Lymph % (Auto) 8.2 L [place] % (Auto) 6.0 Eos % (Auto) 1.3 Baso % (Auto) 0.3 Absolute Neuts (auto) 9.9 H Absolute Lymphs (auto) 0.97 Nucleated RBC % 0 Sodium 138 Potassium 3.5 Chloride 104 Carbon Dioxide 29.0 Anion Gap 5 BUN 11 Creatinine 0.67 Estim Creat Clear Calc 66.54 Est GFR (MDRD) Af Amer 115 Est GFR (MDRD) Non-Af 95 BUN/Creatinine Ratio 16.5 Glucose 116 H Calcium 9.4 Troponin I High Sens 6 B-Natriuretic Peptide 105.6 H Radiography Chest X-Ray - ED: 2 View and Read by ED Physician (2 view chest x-ray was independently reviewed and interpreted by me at 1220. There is no acute findings. Cardiac silhouette size normal. Slight hyperaeration. No infiltrate or effusion noted. Perihilar region normal. Osseous structures normal.) Diagnostic Testing: Clinical Impression(s) from Imaging Studies Chest X-Ray 03/31/22 12:00 IMPRESSION: Hyperinflation. Electronically Signed: Krzysztof Guajardo MD at 12:36 EDT , Discharge Plan Triage Chief Complaint: Palpitations ED Midlevel Provider: Ramu Gomez ED Provider: Barry Caraballo Dx/Rx/DC Orders Clinical Impression: Vasovagal syncope, Cervical muscle strain, History of COPD Instructions: Causes of Syncope, ED Neck Sprain or Strain Prescriptions: No Action sertraline 100 mg tablet 100 mg PO DAILY cholecalciferol (vitamin D3) 25 mcg (1,000 unit) capsule 25 mcg PO DAILY ibuprofen 200 mg capsule 200 mg PO Q6H PRN (Reason: Pain Or Fever) (DME) oxygen 2 liters Qty: 1 nystatin 100,000 unit/mL suspension 5 ml mucous membrane TID Qty: 250 1RF Rx Instructions: swish and swallow 5 cc three times per day for 10 days ezetimibe [Zetia] 10 mg tablet 10 mg PO DAILY Qty: 30 11RF rosuvastatin [Crestor] 5 mg tablet 5 mg PO DAILY Qty: 30 11RF fluticasone propion-salmeterol [Wixela Inhub] 100-50 mcg/dose blister with device 1 inh INHALATION BID Qty: 60 5RF fluticasone propionate 50 mcg/actuation spray,suspension 2 spray INTRANASAL DAILY Qty: 16 3RF albuterol sulfate [ProAir HFA] 90 mcg/actuation HFA aerosol inhaler 2 puff inhalation Q6H PRN (Reason: shortness of breath or wheezing) Qty: 18 6RF cetirizine 10 mg capsule 10 mg PO HS Qty: 90 3RF montelukast 10 mg tablet 10 mg PO QPM Qty: 30 3RF ropinirole 0.5 mg tablet 0.5 mg PO DAILY Qty: 60 5RF Rx Instructions: 1 tab 1-2 hours before bed, on 4th night may increase to 2 tabs Spiriva Respimat 2.5 mcg/actuation mist 2 puff INHALATION QDAY Qty: 1 6RF Rx Instructions: administer at approximately the same time(s) each day aspirin 81 MG tablet,chewable 81 mg PO DAILY@0800 0RF ondansetron 4 MG tablet 4 mg PO Q8H PRN PRN (Reason: Nausea) Qty: 10 0RF metoprolol succinate 25 mg tablet extended release 24 hr 12.5 mg PO DAILY Qty: 15 11RF Primary Care Provider: Hugo Francois Referrals: Hugo Francois, DO [Primary Care Provider] - Activity Restrictions/Additional Instructions: Please maintain hydration. Please perform gentle stretching, ice and heat the right side of your neck. Follow-up with your PCP. Disposition Disposition: Home, Self Care Discharge Date/Time: 03/31/22 14:20
[2022-03-31 11:25] VITALS: BP 128/87; PULSE 79; PULSE 83; RESP 14; RESP 19; TEMP 36.9; O2SAT 96; O2SAT 97
[2022-03-31] MEDS: 0.9% Normal Saline 1,000 ML 999 ML IV (11:41)
[2022-03-31 11:42] LABS: Absolute Lymphocyte Count 0.97 X10^3/uL (0.83-4.51); Absolute Neutrophil Count 9.9 X10^3/uL (2.0-7.7); Basophil# 0.03 X10^3/uL; Basophil% 0.3 % (0-1); Eosinophil# 0.15 X10^3/uL; Eosinophils% 1.3 % (0-5); Hematocrit 38.3 % (37-47); Hemoglobin 12.6 g/dL (12.0-15.0); Lymphocyte # 0.97 X10^3/ul (0.83-4.51); Lymphocyte % 8.2 % (19-41); Mean Corp Hgb Conc 32.9 g/dL (32-36); Mean Corpuscular Hgb 31.3 pg (27.0-32.0); Mean Corpuscular Volume 95.3 fL (81-99); Mean Platelet Vol. 8.5 fl (6.2-12.0); Monocyte# 0.71 X10^3/uL; NRBC Flagged by Analyzer 0 % (0-5); Neutrophil # 9.86 X10^3/uL (2.7-7.7); Neutrophil % 83.7 % (47-70); Platelet Count 281 K/mm3 (150-450); RBC Distribution Width CV 14.2 % (11.6-14.6); RBC Distribution Width SD 49.7 fl (35.1-43.9); Red Blood Count 4.02 M/mm3 (4.2-5.4); White Blood Count 11.8 K/mm3 (4.4-11.0)
--- NOTE | 2022-03-31 12:00 | RAD_ITS ---
STUDY: X-RAY CHEST REASON FOR EXAM: Female, 61 years old. SOB TECHNIQUE: PA and lateral views of the chest. COMPARISON: Comparison is made with prior study 03/17/2020. FINDINGS: EKG electrodes are seen. Hyperinflation. Scattered calcified granulomas. The lungs are clear. There is no demonstrated pleural abnormality. Normal size heart. Normal mediastinum and luly. Normal visualized pulmonary arteries. Normal visualized aortic arch and descending thoracic aorta. There are diffuse degenerative changes of the visualized thoracic spine. Normal visualized ribs, clavicles, and shoulders. There is no demonstrated abnormality of the visualized soft tissue structures of the upper abdomen. RAD/Chest PA and Lateral IMPRESSION: Hyperinflation. Electronically Signed: Krzysztof Guajardo MD at 12:36 EDT ,
[2022-03-31 12:04] LABS: Anion Gap 5 (5-15); BUN 11 mg/dL (7-18); BUN/Creat Ratio 16.5 RATIO (10-20); Calcium,Total 9.4 mg/dL (8.5-10.1); Chloride 104 mmol/L (98-107); Creatinine, Serum 0.67 mg/dL (0.55-1.02); EST Glomerular Filtration Rate 95 mL/min (>60); Est Glom Filt Rate - Afr Amer 115 mL/min (>60); Estimated Creatinine Clearance 66.54 ml/min; Glucose 116 mg/dL (74-106); Potassium 3.5 mmol/L (3.5-5.1); Sodium Level 138 mmol/L (136-145); Troponin-I HS 6 pg/mL (3.0-54.0)
[2022-03-31 12:08] LABS: BNP,B-Type NATRIURETIC PEPTIDE 105.6 pg/mL (0-100)
[2022-03-31 12:28] VITALS: BP 140/89; PULSE 90; PULSE 93; RESP 14; TEMP 37.4; O2SAT 100
[2022-03-31 13:21] VITALS: BP 130/80; BP 134/80; PULSE 87; RESP 18; RESP 20; TEMP 37.7; O2SAT 100
[2022-03-31 13:24] VITALS: BP 126/80; BP 134/75; BP 137/79; PULSE 82; PULSE 87; PULSE 91
[2022-03-31] MEDS: HYDROcodone Bitartrate/Apap 5/325 Tablet PO (14:15)
== END 2022-03-31 14:20 | disposition home or self-care (01) ==
PROVIDERS: Nurse Practitioner; Emergency Provider Emergency Medicine; PCP Family Medicine; Visit Provider Emergency Medicine
DX: R55 Syncope and collapse (principal); J44.9 Chronic obstructive pulmonary disease, unspecified; S16.1XXA Strain of muscle, fascia and tendon at neck level, initial encounter; E78.5 Hyperlipidemia, unspecified; I25.10 Atherosclerotic heart disease of native coronary artery without angina pectoris; F12.90 Cannabis use, unspecified, uncomplicated; I25.2 Old myocardial infarction; F32.A Depression, unspecified; R06.00 Dyspnea, unspecified; Z95.5 Presence of coronary angioplasty implant and graft; Z79.82 Long term (current) use of aspirin; Z79.899 Other long term (current) drug therapy; X58.XXXA Exposure to other specified factors, initial encounter; Z87.891 Personal history of nicotine dependence
CPT/HCPCS: 71046; 80048; 83880; 84484; 85025; 87428; 93005; 99284; J7030; A4216

== ENCOUNTER → 2022-11-13 | Outpatient (CLI) | payer MEDICAID, SELFPAY ==
[2017-09-27 08:35] VITALS: BMI 18.0
--- NOTE | 2022-11-13 15:55 | CT_ITS ---
STUDY: LOW DOSE CT LUNG CANCER SCREENING REASON FOR EXAM: Female, 62 years old. smoker quit 12/04/2017 RADIATION DOSAGE (If Supplied By Facility): CTDIvol = ( 2.01 ) mGy, DLP = ( 61.17 ) mGycm TECHNIQUE: Transaxial imaging was performed without the administration of intravenous contrast material. Individualized dose optimization techniques were used for this CT. COMPARISON: 11/09/2021 and 01/13/[address]s. FINDINGS: Heart and great vessels: Heart size normal. No aneurysm of the thoracic aorta. Dense calcific atherosclerosis of the coronary arteries. Lungs, pleura, airways: No pneumonia, edema, or acute abnormality in the lungs. No pleural effusion. No pneumothorax. Emphysema with subpleural scarring and interstitial prominence in the lung apices and lung bases, mild bronchial wall thickening, similar to previous. No concerning nodules. Mediastinum: No adenopathy or mass or hematoma. Osseous:No acute osseous abnormality. Chest wall: No concerning findings. Upper abdomen: No acute findings. Any findings described in the findings sections and not included in the impression are incidental and do not require imaging follow-up. CT/Low Dose CT Lung Screening IMPRESSION: No concerning interval change. Lung-RADS category 2 - Continue annual screening with LDCT in 12 months. Coronary artery atherosclerosis and emphysema. IMPORTANT NOTES FOR USE: ACR Lung-RADS Version 1.1 Assessment Categories Release Date: 2018 Category: Coded 0-4 bases on nodule(s) with highest degree of suspicion. Negative screen is defined as categories 1 and 2; a positive screen is defined as categories 3 and 4. Category 3 and 4A nodules that are unchanged on interval CT should be coded as category 2, and individuals returned to screening in 12 months. Category 4X: Category 3 or 4 nodules with additional imaging findings that increase the suspicion of lung cancer, such as spiculation, GGN that doubles in size in 1 year, enlarged lymph notes, etc. Category Modifiers: S (significant finding unrelated to lung cancer) Electronically Signed: Ashok Marie MD at 4:40 EDT ,
== END | disposition home or self-care (01) ==
LOC: CT 15:55
PROVIDERS: PCP Family Medicine; Referring Provider Nurse Practitioner Acute Care; Visit Provider Nurse Practitioner Acute Care
DX: Z12.2 Encounter for screening for malignant neoplasm of respiratory organs (principal); F17.210 Nicotine dependence, cigarettes, uncomplicated
CPT/HCPCS: 71271

== ENCOUNTER → 2023-06-25 | Outpatient (CLI) | payer MEDICAID, SELFPAY ==
[2017-09-27 08:35] VITALS: BMI 18.0
[2023-06-25 11:26] LABS: AST(SGOT) 17 U/L (15-37); Alanine Aminotransfer ALT/SGPT 19 U/L (13-56); Albumin, Serum 3.8 g/dL (3.2-5.0); Alkaline Phosphatase 95 U/L (45-117); Bilirubin, Direct 0.08 mg/dL (0.00-0.30); Cholesterol 128 mg/dL (200); Globulin 4.6 g/dL (2.2-4.2); High Density Lipoprotein 63 mg/dL; Protein, Total 8.4 g/dL (6.4-8.2); Triglycerides 194 mg/dL; Very Low Density Lipoprotein 39 mg/dL (5-40)
== END | disposition home or self-care (01) ==
LOC: LAB 09:43
PROVIDERS: PCP Family Medicine; Referring Provider Nurse Practitioner Family; Visit Provider Nurse Practitioner Family
DX: E78.00 Pure hypercholesterolemia, unspecified (principal)
CPT/HCPCS: 36415; 80061; 80076

== ENCOUNTER → 2023-11-20 | Outpatient (CLI) | payer MEDICAID, SELFPAY ==
[2017-09-27 08:35] VITALS: BMI 18.0
[2023-11-20 15:20] LABS: Absolute Lymphocyte Count 1.72 X10^3/uL (0.83-4.51); Absolute Neutrophil Count 6.4 X10^3/uL (2.0-7.7); Basophil# 0.04 X10^3/uL; Basophil% 0.5 % (0-1); Eosinophil# 0.38 X10^3/uL; Eosinophils% 4.3 % (0-5); Hematocrit 38.4 % (37-47); Hemoglobin 12.4 g/dL (12.0-15.0); Lymphocyte # 1.72 X10^3/ul (0.83-4.51); Lymphocyte % 19.4 % (19-41); Mean Corp Hgb Conc 32.3 g/dL (32-36); Mean Corpuscular Hgb 31.3 pg (27.0-32.0); Mean Platelet Vol. 8.8 fl (6.2-12.0); Monocyte# 0.35 X10^3/uL; Monocyte% 3.9 % (0-10); NRBC Flagged by Analyzer 0 % (0-5); Neutrophil # 6.37 X10^3/uL (2.7-7.7); Neutrophil % 71.7 % (47-70); Platelet Count 363 K/mm3 (150-450); RBC Distribution Width CV 13.8 % (11.6-14.6); RBC Distribution Width SD 48.9 fl (35.1-43.9); Red Blood Count 3.96 M/mm3 (4.2-5.4); White Blood Count 8.9 K/mm3 (4.4-11.0)
[2023-11-20 15:38] LABS: Vitamin B12 511 pg/mL (211-911)
[2023-11-20 15:47] LABS: Anion Gap 4 (5-15); BUN 13 mg/dL (7-18); BUN/Creat Ratio 15.2 RATIO (10-20); Calcium,Total 9.8 mg/dL (8.5-10.1); Chloride 101 mmol/L (98-107); Creatinine, Serum 0.85 mg/dL (0.55-1.02); EST Glomerular Filtration Rate 71 mL/min (>60); Est Glom Filt Rate - Afr Amer 86 mL/min (>60); Glucose 105 mg/dL (74-106); Sodium Level 138 mmol/L (136-145); Thyroid Stim Hormone (TSH) 1.87 uIU/mL (0.358-3.74)
== END | disposition home or self-care (01) ==
LOC: BFHLAB 13:16
PROVIDERS: PCP Family Medicine; Referring Provider Family Medicine; Visit Provider Family Medicine
DX: I25.10 Atherosclerotic heart disease of native coronary artery without angina pectoris (principal); R41.3 Other amnesia; R11.0 Nausea
CPT/HCPCS: 36415; 80048; 82607; 84443; 85025

== ENCOUNTER → 2023-11-21 | Outpatient (CLI) | payer MEDICAID, SELFPAY ==
[2017-09-27 08:35] VITALS: BMI 18.0
--- NOTE | 2023-11-21 13:51 | CT_ITS ---
HISTORY: quit 2017. TECHNIQUE: Helically acquired images were obtained of the chest without contrast. A radiation dose optimization technique was used for this scan. 760 images. COMPARISON: 11/13/2022, 11/09/2021. FINDINGS: LARGE AIRWAYS: Grossly patent. LUNGS: Moderate emphysema with mild apical and peripheral scarring. 2 mm nodules, predominantly upper lobe and juxtapleural again seen. Mild lower lobe atelectasis PLEURA: No pneumothorax or significant pleural effusion. HEART/PERICARDIUM: Heart within normal limits in size with coronary artery calcification. No pericardial effusion. VESSELS: Thoracic aorta nondilated. MEDIASTINUM/GODFREY: Mildly prominent precarinal lymph nodes again seen. BONES: Intact. CT/Low Dose CT Lung Screening IMPRESSION: Lung-RADS category 2: Continue annual screening with low dose CT. Electronically Signed: Carolann Stevenson MD at 13:49 EDT ,
== END | disposition home or self-care (01) ==
LOC: CT 13:51
PROVIDERS: PCP Family Medicine; Referring Provider Nurse Practitioner Acute Care; Visit Provider Nurse Practitioner Acute Care
DX: Z12.2 Encounter for screening for malignant neoplasm of respiratory organs (principal); F17.210 Nicotine dependence, cigarettes, uncomplicated
CPT/HCPCS: 71271

== ENCOUNTER → 2023-12-05 | Outpatient (CLI) | payer MEDICAID, SELFPAY ==
[2017-09-27 08:35] VITALS: BMI 18.0
== END | disposition home or self-care (01) ==
LOC: LABSPEC 13:21
PROVIDERS: PCP Nurse Practitioner Family; Referring Provider Nurse Practitioner Family; Visit Provider Nurse Practitioner Family
DX: Z12.4 Encounter for screening for malignant neoplasm of cervix (principal)
CPT/HCPCS: 88175; G0145

== ENCOUNTER → 2023-12-11 | Outpatient (CLI) | payer MEDICAID, SELFPAY ==
[2017-09-27 08:35] VITALS: BMI 18.0
--- NOTE | 2023-12-11 13:45 | BI_ITS ---
MAMMOGRAPHY - BILATERAL SCREENING REASON FOR EXAM: Female, 63 years old. Routine annual screening examination. PERTINENT HISTORY: Non-contributory. TECHNIQUE: Digital bilateral breast yandel (3D mammographic acquisition) in the CC and MLO projections. 2-D mediolateral oblique (MLO) and craniocaudad (CC) views of both breasts were obtained. CAD: Full Field Digital Mammography with Computer Added Detection was performed. COMPARISON: Comparison is made with prior study dated December 05, 2017. FINDINGS: Breast Composition: The breasts are heterogeneously dense, which may obscure small masses. There are no dominant masses or suspicious calcifications. Stable bilateral axillary lymph nodes. No other significant abnormalities are identified. There has been no significant change since the prior study. BI/SCRN MAMM (CAD)W/YANDEL BILAT IMPRESSION: Stable bilateral screening mammogram. Yearly follow-up mammogram recommended. (A) ASSESSMENT CATEGORY: BIRADS Category 2: Benign. A letter regarding these results will be sent to the patient by the facility within 30 days. Approximately 10% of breast cancers are not detected by mammography. A normal mammogram should not delay biopsy of a clinically suspicious abnormality. [id number] Electronically Signed: Krzysztof Guajardo MD at 14:24 EDT ,
--- NOTE | 2023-12-11 13:47 | BD_ITS ---
STUDY: DUAL ENERGY X-RAY ABSORPTIOMETRY / DXA REASON FOR EXAM: Female, 63 years old. [id number] TECHNIQUE: Bone Mineral Density (BMD) measurements of lumbar spine and bilateral hips were obtained. COMPARISON: None. FINDINGS: Lumbar Spine (L1-L4): g/cm2 (0.876) / T-score (-1.6) / Z-score (0.1) Findings are suggestive of osteopenia with a moderate fracture risk. Left Femur Total: g/cm2 (0.688) / T-score (-2.1) / Z-score (-0.9) Left Femoral Neck: g/cm2 (0.601) / T-score (-2.2) / Z-score (-0.8) Right Femur Total: g/cm2 (0.697) / T-score (-2.0) / Z-score (-0.9) Right Femoral Neck: g/cm2 (0.605) / T-score (-2.2) / Z-score (-0.8) BD/Dexa Bone Density Study IMPRESSION: The patient is considered osteopenic as outlined below according to World Sid Organization (WHO) criteria with a high fracture risk. Reference Information: The T-score is the number of standard deviations above or below the standard which is normal for young adults at their peak bone mineral density. The World Health Organization (WHO) interprets the T-scores as follows: Above -1 Normal bone density Between -1 and -2.5 Osteopenia Equal to / or below -2.5 Osteoporosis As a practical clinical guideline, osteopenia may be graded as follows: Mild -1 through -1.5 Moderate -1.6 through -2.0 Severe -2.1 through -2.4 The Z-score is the number of standard deviations above or below age-matched controls. A Z-score of less than -1.5 would be considered abnormal. References: 1. NIH Osteoporosis and Related Bone Diseases www osteo.org 2. International Society for Clinical Densitometry www iscd.org 3. National Osteoporosis Foundation www nof.org Electronically Signed: Krzysztof Guajardo MD at 9:59 EDT ,
== END | disposition home or self-care (01) ==
LOC: OPBD 13:44
PROVIDERS: PCP Nurse Practitioner Family; Referring Provider Family Medicine; Visit Provider Family Medicine
DX: Z12.31 Encounter for screening mammogram for malignant neoplasm of breast (principal); M81.0 Age-related osteoporosis without current pathological fracture
CPT/HCPCS: 77063; 77067; 77080

== ENCOUNTER → 2024-07-16 | Outpatient (CLI) | payer MEDICAID, SELFPAY ==
[2017-09-27 08:35] VITALS: BMI 18.0
--- NOTE | 2024-07-16 10:20 | RAD_ITS ---
INDICATION: BACK PAIN EXAMINATION/TECHNIQUE: X-RAY - XR Spine Lumbar Min 4 Views COMPARISON: No relevant prior comparison study available FINDINGS: VERTEBRAE: Preserved vertebral body height. No fracture. There is multilevel endplate spondylosis. There is a grade 1 anterior spondylolisthesis of L4 on L5. DISCS: There is multilevel degenerative disc disease, most pronounced at L4-L5 and L5-S1. INCLUDED ABDOMEN: Included bowel gas pattern is non-obstructive. There are vascular calcifications. RAD/L/S Spine Min 4 Views IMPRESSION: Multilevel degenerative changes. Grade 1 anterior spondylolisthesis of L4 on L5. Atherosclerosis. Electronically Signed: Martha Ibrahim MD at 16:31 EST ,
--- NOTE | 2024-07-16 10:20 | RAD_ITS ---
INDICATION: CHANGE IN BOWELS EXAMINATION/TECHNIQUE: X-RAY - XR Abdomen 1 View COMPARISON: September 26, 2017 FINDINGS: BOWEL GAS PATTERN: Non-obstructive. No bowel or stomach distention. FREE AIR: Not assessed on a single supine view. ORGANOMEGALY: Not seen. LOWER CHEST: No acute pathology. BONES AND SOFT TISSUES: There are degenerative changes of the lower lumbar spine. RAD/Abdomen Single View IMPRESSION: Nonspecific bowel gas pattern. Electronically Signed: Martha Ibrahim MD at 9:14 EST ,
== END | disposition home or self-care (01) ==
PROVIDERS: PCP Family Medicine; Referring Provider Family Medicine; Visit Provider Family Medicine
DX: R19.4 Change in bowel habit (principal); M54.50 Low back pain, unspecified
CPT/HCPCS: 72110; 74018

== ENCOUNTER → 2024-08-14 | Outpatient (CLI) | payer MEDICAID, SELFPAY ==
[2017-09-27 08:35] VITALS: BMI 18.0
[2024-08-14 12:36] LABS: AST(SGOT) 14 U/L (15-37); Alanine Aminotransfer ALT/SGPT 21 U/L (13-56); Albumin, Serum 3.9 g/dL (3.2-5.0); Alkaline Phosphatase 85 U/L (45-117); Bilirubin, Direct 0.09 mg/dL (0.00-0.30); Cholesterol 112 mg/dL (200); High Density Lipoprotein 69 mg/dL; Protein, Total 7.9 g/dL (6.4-8.2); Triglycerides 169 mg/dL; Very Low Density Lipoprotein 34 mg/dL (5-40)
[2024-08-14 12:40] LABS: Anion Gap 4 (5-15); BUN 12 mg/dL (7-18); Calcium,Total 9.7 mg/dL (8.5-10.1); Chloride 100 mmol/L (98-107); EST Glomerular Filtration Rate 77 mL/min (>60); Est Glom Filt Rate - Afr Amer 93 mL/min (>60); Glucose 98 mg/dL (74-106); Potassium 3.8 mmol/L (3.5-5.1); Sodium Level 137 mmol/L (136-145)
== END | disposition home or self-care (01) ==
LOC: MTLAB 10:38
PROVIDERS: Internal Medicine Cardiovascular Disease; PCP Family Medicine; Referring Provider Family Medicine; Visit Provider Family Medicine
DX: E78.2 Mixed hyperlipidemia (principal); I25.10 Atherosclerotic heart disease of native coronary artery without angina pectoris; Z51.81 Encounter for therapeutic drug level monitoring
CPT/HCPCS: 36415; 80048; 80061; 80076

== ENCOUNTER → 2024-11-24 | Outpatient (CLI) | payer MEDICAID, SELFPAY ==
[2017-09-27 08:35] VITALS: BMI 18.0
--- NOTE | 2024-11-24 13:26 | CT_ITS ---
PROCEDURE: LOW DOSE CT LUNG SCREENING 11/24/2024 REASON FOR EXAM: SMOKER 2 packs per day for 30 years. TECHNIQUE: Low Dose CT Lung screening without contrast. Coronal and Sagittal reconstruction series were provided. One or more dose reduction techniques were used (e.g., Automated exposure control, adjustment of the mA and/or kV according to patient size, use of iterative reconstruction technique). REFERENCE LINK: [employer] Lung-RADS RADIATION DOSE SUMMARY: CTDlvol: 2.01 mGy DLP: 64.69 mGycm COMPARISON: None. FINDINGS: PULMONARY NODULES: (Only nodules >3mm are reported) Nodules described below are on series 1 unless otherwise specified. Pulmonary Nodules: No suspicious nodules. Hardware:None Lymph Nodes:Small mediastinal lymph nodes. Heart and Vasculature:No evidence of cardiomegaly.Atherosclerotic calcifications of the thoracic aorta. Thoracic aorta and pulmonary arteries have normal contours; noncontrast technique limits evaluation. Coronary Artery Calcifications: Present Lungs and Airways: Mild emphysematous changes are present. Pleura:Unremarkable Upper Abdomen:Nonobstructive calculus in the upper pole calyx of the right kidney. Bones:Degenerative changes of the thoracic spine. CT/Low Dose CT Lung Screening IMPRESSION: No suspicious nodules seen. Coronary artery calcification (CAC) is is present Lung-RADS Category: 2 BENIGN (BASED ON IMAGING FEATURES OR INDOLENT BEHAVIOR). RECOMMEND 12-MONTH SCREENING LDCT. Other Significant Findings: None. Reading Location: [place] [id number]
== END | disposition home or self-care (01) ==
LOC: CT 13:26
PROVIDERS: PCP Family Medicine; Referring Provider Nurse Practitioner Acute Care; Visit Provider Nurse Practitioner Acute Care
DX: F17.210 Nicotine dependence, cigarettes, uncomplicated (principal)
CPT/HCPCS: 71271